=== PATIENT | female | born 1930 | race Hispanic/Latino ===

== ENCOUNTER 2020-07-06 17:11 | Emergency (ER) | payer OTHER, BC ==
[2020-07-06 18:12] LABS: Basophils % 0.6 % (0-1.3); Hematocrit 30.5 % (36.0-45.0); Lymphocytes % 10.4 % (15.3-44.8); MPV 10.5 fL (7.6-11.3); RBC Red Blood Cell Count 3.18 M/uL (3.86-4.86)
[2020-07-06 18:19] LABS: Protime INR 0.97
--- NOTE | 2020-07-06 18:27 | RAD REPORT ---
EXAM DESCRIPTION: RAD - Chest Single View - 07/06/2020 6:21 pm CLINICAL HISTORY: fall Chest pain. COMPARISON: No comparisons FINDINGS: Portable technique limits examination quality. The lungs are grossly clear. The heart is normal in size. No displaced fractures. IMPRESSION: No acute intrathoracic process suspected.
--- NOTE | 2020-07-06 18:28 | RAD REPORT ---
EXAM DESCRIPTION: RAD - Femur Left - 07/06/2020 6:22 pm CLINICAL HISTORY: PAIN Fall, pain COMPARISON: No comparisons FINDINGS: Subcapital fracture is seen of the proximal left femur with varus angulation. No dislocati on evident.
--- NOTE | 2020-07-06 18:28 | RAD REPORT ---
EXAM DESCRIPTION: RAD - Pelvis - 07/06/2020 6:21 pm CLINICAL HISTORY: BLUNT TRAUMA Fall, hip pain COMPARISON: No comparisons FINDINGS: Subcapital fracture of the proximal left femur is seen with varus angulation. No dislocati on evident.
[2020-07-06] MEDS ORDERED: MORPHINE 2 MG/ML SYR ONE (18:36)
[2020-07-06] MEDS ORDERED: ONDANSETRON 4 MG/2 ML VIAL ONE ×2 (18:36→21:38)
--- NOTE | 2020-07-06 18:44 | ER ---
Nurse's Notes [facility] Name: Petty Ferrer Age: 89 yrs Sex: Female : 1930 Arrival Date: 07/06/2020 Time: 17:51 Bed 3 Private MD: Diagnosis: Acute, closed, left subcapital femur fracture Presentation: 07/06 17:51 Chief complaint: EMS states: Left hip pain 10/10 after fall from standing. Left leg hb shortened and externally rotated. Takes ASA. Fentanyl 60 mcg to 20g LAC administered DRAINAGE DESIGN COORDINATOR. BGL 220. Care prior to arrival: IV initiated. 20 GA, in the left antecubital area, Glucose check: 220. Mechanism of Injury: Fall from standing position. Trauma event details: Injury occurred in the [facility], Injury occurred: at home. Injury occurred: July 06, 2020. 17:51 Acuity: ANUP 2 hb 17:51 Method Of Arrival: EMS: [facility] hb 17:53 Coronavirus screen: At this time, the client does not indicate any symptoms associated hb with coronavirus-19. Ebola Screen: No symptoms or risks identified at this time. Initial Sepsis Screen: Does the patient meet any 2 criteria? No. Patient's initial sepsis screen is negative. Does the patient have a suspected source of infection? No. Patient's initial sepsis screen is negative. Risk Assessment: Do you want to hurt yourself or someone else? Patient reports no desire to harm self or others. Onset of symptoms was July 06, 2020. Trauma Activation: Alert Physician: ED Physician; Name: ; Notified At: ; Arrived At: Physician: General Surgeon; Name: ; Notified At: ; Arrived At: Physician: Radiology; Name: ; Notified At: ; Arrived At: Physician: Respiratory; Name: ; Notified At: ; Arrived At: Physician: Lab; Name: ; Notified At: ; Arrived At: Historical: - Allergies: 18:01 No Known Allergies; hb - Home Meds: 18:01 Paxil Oral [Active]; unknown HTN med [Active]; hb 18:30 cetirizine 10 mg oral tab 1 tab once daily [Active]; pioglitazone 15 mg oral tab 1 tab hb once daily [Active]; aspirin 81 mg Oral TbEC 1 tab once daily [Active]; oxybutynin chloride 5 mg Oral tr24 1 tab once daily [Active]; ramipril 5 mg Oral cap 1 cap once daily [Active]; paroxetine HCl 20 mg oral tab 1 tab once daily [Active]; Levemir 100 unit/mL subcutaneous soln [Active]; - PMHx: 18:01 Hypertension; hb - Immunization history: Last tetanus immunization: unknown. - Social history:: Smoking status: Patient denies any tobacco usage or history of. - Family history:: not pertinent. - Hospitalizations: : No recent hospitalization is reported. Screenin:01 Abuse screen: Denies threats or abuse. Denies injuries from another. Nutritional hb screening: No deficits noted. Tuberculosis screening: No symptoms or risk factors identified. Fall Risk Total Ferreira Fall Scale indicates High Risk Score (45 or more points). Fall prevention measures have been instituted. Side Rails Up X 2 Placed Close to Nursing Station Frequent Obs/Assessments Occuring As available patient and family educated on Fall Prevention Program and Strategies. Primary Survey: 17:51 NO uncontrolled hemorrhage observed. A: The patient is alert. Airway: patent, No hb supplemental oxygen in use on arrival. Breathing/Chest: Respiratory pattern: regular, Respiratory effort: spontaneous, unlabored, Chest inspection: symmetrical rise and fall of the chest. Circulation: Pulses: palpable right dorsalis pedis artery and left dorsalis pedis artery. Skin color: pink, Skin temperature: warm, dry. Disability Alert. Exposure/Environment: There is no evidence of uncontrolled external bleeding. Obvious injury(ies) are noted at this time: left hip pain, left leg shortened and externally rotated A warming method has been applied: A warm blanket has been provided to the patient. 18:39 Reassessment Airway Airway Patent Oxygen No O2 Breathing/Chest Respiratory pattern hb Regular Respiratory effort Spontaneous Unlabored Chest inspection Symmetrical Circulation Pulses Palpable Color [place] Temperature Warm Dry Disability Alert. Secondary Survey: 17:55 HEENT: No deficits noted. Gastrointestinal: No deficits noted. : No deficits noted. hb Musculoskeletal: left leg shortened and externally rotated, c/o left hip pain 10/10. Assessment: 18:00 General: Appears in no apparent distress. uncomfortable, Behavior is calm, cooperative. hb Pain: Pain currently is 10 out of 10 on a pain scale. 18:00 Neuro: Level of Consciousness is awake, alert, obeys commands, Oriented to person, hb place, situation. Cardiovascular: Heart tones S1 S2 present Capillary refill < 3 seconds Patient's skin is warm and dry. Respiratory: Airway is patent Respiratory effort is even, unlabored, Respiratory pattern is regular, symmetrical, Breath sounds are clear bilaterally. GI: No deficits noted. No signs and/or symptoms were reported involving the gastrointestinal system. : No deficits noted. No signs and/or symptoms were reported regarding the genitourinary system. EENT: No deficits noted. No signs and/or symptoms were reported regarding the EENT system. Derm: Skin is pink, warm \T\ dry. Musculoskeletal: Reports pain in left hip, left leg shortened and externally rotated. 18:01 Reassessment: Pt transported to radiology via stretcher. hb 19:43 Reassessment: Patient appears in no apparent distress at this time. Patient and/or mg2 family updated on plan of care and expected duration. Pain level reassessed. 20:00 Reassessment: report given to [facility]. mg2 21:29 Reassessment: report given to [facility]. patient in good condition, aox4, iv mg2 intact. Vital Signs: 17:53 BP 182 / 62; Pulse 87; Resp 14; Temp 97.7; Pulse Ox 98% on R/A; Weight 60 kg; Height 5 hb ft. 1 in. (154.94 cm); Pain 10/10; 18:39 BP 144 / 81; Pulse 86; Resp 17; Pulse Ox 99% on R/A; Pain 8/10; hb 19:44 BP 172 / 46; Pulse 74; Resp 18; Pulse Ox 98% ; mg2 21:30 BP 150 / 100; Pulse 80; Resp 18; Temp 98; Pulse Ox 100% on R/A; mg2 17:53 Body Mass Index 24.99 (60.00 kg, 154.94 cm) hb [place] Coma Score: 17:55 Eye Response: spontaneous(4). Verbal Response: confused(4). Motor Response: obeys hb commands(6). Total: 14. Trauma Score (Adult): 17:55 Eye Response: spontaneous(1); Verbal Response: confused(1); Motor Response: obeys hb commands(2); Systolic BP: > 89 mm Hg(4); Respiratory Rate: 10 to 29 per min(4); [place] Score: 14; Trauma Score: 12 18:39 Eye Response: spontaneous(1); Verbal Response: confused(1); Motor Response: obeys hb commands(2); Systolic BP: > 89 mm Hg(4); Respiratory Rate: 10 to 29 per min(4); [place] Score: 14; Trauma Score: 12 ED Course: 17:51 Patient arrived in ED. hb 17:53 Chava Weir MD is Attending Physician. rn 17:53 Triage completed. hb 18:00 Long cath inserted, using sterile technique, 16 Fr., by nv, balloon inflated, to sv gravity drainage, returned clear yellow urine. Patient tolerated poorly. 18:01 Patient moved to radiology via stretcher. sv 18:01 Arm band placed on. hb 18:02 Patient maintains SpO2 saturation greater than 95% on room air. Thermoregulation: warm hb blanket given to patient. 18:02 Patient has correct armband on for positive identification. Call light in reach. Side hb rails up X2. 18:18 Anabel Olson, RN is Primary Nurse. hb 18:21 XRAY Pelvis In Process Unspecified. EDMS 18:21 XRAY Femur LEFT In Process Unspecified. EDMS 18:21 XRAY Chest (1 view) In Process Unspecified. EDMS 18:32 EKG done, by ED staff, reviewed by Chava Weir MD. [facility] 19:17 Jose R Muñoz PA is PHCP. cp 19:41 administrative approval given by Berta Espinosa/ patient has been accepted to [facility] mw2 bed 1547/ Dr. Pinedo has accepted the patient in transfer/ report to be called to [phone]. Administered Medications: 18:26 Drug: morphine 2 mg Route: IVP; Site: left antecubital; hb 19:14 Follow up: Response: No adverse reaction hb 18:26 Drug: Zofran (Ondansetron) 4 mg Route: IVP; Site: left antecubital; hb 19:14 Follow up: Response: No adverse reaction hb 21:25 Drug: morphine 4 mg Route: IVP; Site: left antecubital; mg2 21:29 Follow up: Response: No adverse reaction mg2 21:26 Drug: NS 0.9% 1000 ml Route: IV; Rate: 75 ml/hr; Site: left antecubital; mg2 21:29 Follow up: IV Status: Infusion continued upon transfer mg2 21:26 Drug: Zofran (Ondansetron) 4 mg Route: IVP; Site: left antecubital; mg2 21:29 Follow up: Response: No adverse reaction mg2 Intake: 17:55 PO: 0ml; Total: 0ml. hb Output: 17:55 Urine: 0ml; Total: 0ml. hb Outcome: 18:43 ER care complete, transfer ordered by . rn 21:30 Transferred by ground EMS to [facility], Transfer form completed. mg2 21:30 Condition: stable 21:30 Instructed on the need for transfer, Demonstrated understanding of instructions. 21:30 Patient left the ED. mg2 Signatures: Dispatcher [employer] Kiesha Early, RN Chava Perez MD MD rn Page, Corey, PA PA cp Baxter, Heather, RN RN Lizy Clinton 3 Kita Montes [facility] Ismael Dorsey RN RN mg2 Corrections: (The following items were deleted from the chart) 18:27 17:51 Chief complaint: EMS states: Left hip pain 10/10 after fall from standing. Left hb leg shortened and externally rotated. Fentanyl 60 mcg to 20g LAC administered DRAINAGE DESIGN COORDINATOR. BGL 220. hb
--- NOTE | 2020-07-06 18:44 | EDPHYS ---
Physician Documentation [facility] Name: Petty Ferrer Age: 89 yrs Sex: Female : 1930 Arrival Date: 07/06/2020 Time: 17:51 Bed 3 Private MD: ED Physician Chava Weir HPI: 07/06 18:02 This 89 yrs old Female presents to ER via EMS with complaints of Fall Injury. rn 18:02 Details of fall: The patient fell from an upright position, while walking. Onset: The rn symptoms/episode began/occurred just prior to arrival. Associated injuries: The patient sustained left hip. Severity of symptoms: At their worst the symptoms were moderate, in the emergency department the symptoms are unchanged. The patient has not experienced similar symptoms in the past. The patient has not recently seen a physician. Reports fall while walking, landed on left hip, no head injury, remembers all events, no upper extremity or chest injury. Reports pain isolated to left hip. Denies blood thinners. . Historical: - Allergies: 18:01 No Known Allergies; hb - Home Meds: 18:01 Paxil Oral [Active]; unknown HTN med [Active]; hb 18:30 cetirizine 10 mg oral tab 1 tab once daily [Active]; pioglitazone 15 mg oral tab 1 tab hb once daily [Active]; aspirin 81 mg Oral TbEC 1 tab once daily [Active]; oxybutynin chloride 5 mg Oral tr24 1 tab once daily [Active]; ramipril 5 mg Oral cap 1 cap once daily [Active]; paroxetine HCl 20 mg oral tab 1 tab once daily [Active]; Levemir 100 unit/mL subcutaneous soln [Active]; - PMHx: 18:01 Hypertension; hb - Immunization history: Last tetanus immunization: unknown. - Social history:: Smoking status: Patient denies any tobacco usage or history of. - Family history:: not pertinent. - Hospitalizations: : No recent hospitalization is reported. ROS: 18:02 Constitutional: Negative for fever, chills, and weight loss, Eyes: Negative for injury, rn pain, redness, and discharge, ENT: Negative for injury, pain, and discharge, Neck: Negative for injury, pain, and swelling, Cardiovascular: Negative for chest pain, palpitations, and edema, Respiratory: Negative for shortness of breath, cough, wheezing, and pleuritic chest pain, Abdomen/GI: Negative for abdominal pain, nausea, vomiting, diarrhea, and constipation, Back: Negative for injury and pain, MS/Extremity: + left hip injury and pain Skin: Negative for injury, rash, and discoloration, Neuro: Negative for headache, weakness, numbness, tingling, and seizure. Exam: 18:02 Constitutional: This is a well developed, well nourished patient who is awake, alert, rn and in no acute distress. Head/Face: Normocephalic, atraumatic. Neck: No midline tenderness or swelling Chest/axilla: Normal chest wall appearance and motion. Nontender with no deformity. No lesions are appreciated. No crepitus. Cardiovascular: Regular rate and rhythm. No pulse deficits. Respiratory: No increased work of breathing, no retractions or nasal flaring. Abdomen/GI: soft, non-tender Back: No spinal tenderness. MS/ Extremity: Pulses equal, no cyanosis. Neurovascular intact. Full, normal range of motion. Equal circumference. Neuro: Awake and alert, GCS 15, oriented to person, place, time, and situation. Cranial nerves II-XII grossly intact. Motor strength 5/5 in all extremities. Sensory grossly intact. Vital Signs: 17:53 BP 182 / 62; Pulse 87; Resp 14; Temp 97.7; Pulse Ox 98% on R/A; Weight 60 kg; Height 5 hb ft. 1 in. (154.94 cm); Pain 10/10; 18:39 BP 144 / 81; Pulse 86; Resp 17; Pulse Ox 99% on R/A; Pain 8/10; hb 19:44 BP 172 / 46; Pulse 74; Resp 18; Pulse Ox 98% ; mg2 21:30 BP 150 / 100; Pulse 80; Resp 18; Temp 98; Pulse Ox 100% on R/A; mg2 17:53 Body Mass Index 24.99 (60.00 kg, 154.94 cm) hb Boyle Coma Score: 17:55 Eye Response: spontaneous(4). Verbal Response: confused(4). Motor Response: obeys hb commands(6). Total: 14. Trauma Score (Adult): 17:55 Eye Response: spontaneous(1); Verbal Response: confused(1); Motor Response: obeys hb commands(2); Systolic BP: > 89 mm Hg(4); Respiratory Rate: 10 to 29 per min(4); Boyle Score: 14; Trauma Score: 12 18:39 Eye Response: spontaneous(1); Verbal Response: confused(1); Motor Response: obeys hb commands(2); Systolic BP: > 89 mm Hg(4); Respiratory Rate: 10 to 29 per min(4); Boyle Score: 14; Trauma Score: 12 MDM: 17:53 Patient medically screened. rn 18:41 Differential diagnosis: contusion, fracture. Data reviewed: vital signs, nurses notes, rn radiologic studies, plain films, and as a result, I will admit patient. Counseling: I had a detailed discussion with the patient and/or guardian regarding: the historical points, exam findings, and any diagnostic results supporting the discharge/admit diagnosis, radiology results, the need for outpatient follow up, to return to the emergency department if symptoms worsen or persist or if there are any questions or concerns that arise at home. ED course: Pt with left subcapital femur fracture, will have to transfer given no ortho here. Pain meds given. NPO. NO other injuries noted. Stable vitals. [facility] contacted around 1830, waiting on callback. . 19:15 ED course: Accepted for transfer at [facility] by orthopedics, waiting on rn hospitalist consultation. . 07/06 17:59 Order name: CBC with Diff; Complete Time: 18:32 rn 07/06 17:59 Order name: Basic Metabolic Panel; Complete Time: 18:32 rn 07/06 17:59 Order name: XRAY Pelvis; Complete Time: 18:32 rn 07/06 17:59 Order name: Protime (+inr); Complete Time: 18:32 rn 07/06 17:59 Order name: Ptt, Activated; Complete Time: 18:32 rn 07/06 20:36 Order name: Urine Dipstick--Ancillary (enter results) 07/06 17:59 Order name: XRAY Femur LEFT; Complete Time: 18:32 rn 07/06 17:59 Order name: XRAY Chest (1 view); Complete Time: 18:32 rn 07/06 17:59 Order name: EKG; Complete Time: 18: rn 07/06 17:59 Order name: IV Start; Complete Time: 18:01 rn 07/06 17:59 Order name: EKG - Nurse/Tech; Complete Time: 18:36 rn 07/06 18:00 Order name: NPO; Complete Time: 18:19 rn 07/06 19:57 Order name: Urine Dipstick-Ancillary (obtain specimen); Complete Time: 20:36 cp Administered Medications: 18:26 Drug: morphine 2 mg Route: IVP; Site: left antecubital; hb 19:14 Follow up: Response: No adverse reaction hb 18:26 Drug: Zofran (Ondansetron) 4 mg Route: IVP; Site: left antecubital; hb 19:14 Follow up: Response: No adverse reaction hb 21:25 Drug: morphine 4 mg Route: IVP; Site: left antecubital; mg2 21:29 Follow up: Response: No adverse reaction mg2 21:26 Drug: NS 0.9% 1000 ml Route: IV; Rate: 75 ml/hr; Site: left antecubital; mg2 21:29 Follow up: IV Status: Infusion continued upon transfer mg2 21:26 Drug: Zofran (Ondansetron) 4 mg Route: IVP; Site: left antecubital; mg2 21:29 Follow up: Response: No adverse reaction mg2 Disposition: 07/06/20 18:43 Transfer ordered to [facility]. Diagnosis is Acute, closed, left subcapital femur fracture. - Reason for transfer: Higher level of care. - Accepting physician is Dr. Varela. - Condition is Stable. - Problem is new. - Symptoms have improved. Signatures: Dispatcher [employer] EDMS Chava Weir MD MD rn Page, Corey, PA PA cp Anabel Olson RN RN Ismael Parra RN RN mg2 Corrections: (The following items were deleted from the chart) : 18:43 07/06/2020 18:43 Transfer ordered to [facility]. cp Diagnosis is Acute, closed, left subcapital femur fracture. Reason for transfer: Higher level of care. Accepting physician is . Condition is Stable. Problem is new. Symptoms have improved. rn 21:30 19:26 07/06/2020 18:43 Transfer ordered [address] [facility]. mg2 Diagnosis is Acute, closed, left subcapital femur fracture. Reason for transfer: Higher level of care. Accepting physician is Dr. Varela. Condition is Stable. Problem is new. Symptoms have improved. cp
[2020-07-06] MEDS ORDERED: MORPHINE 4 MG/ML SYR ONE (21:38)
[2020-07-06] MEDS ORDERED: NA CHLORIDE 0.9% 500 ML ONE (21:43)
[2020-07-06 22:21] LABS: Urine Blood 1+ (NEG); Urine Glucose TRACE (NEG); Urine Protein 3+ (NEG); Urine Specific Gravity 1.025 (1.005-1.030)
== END 2020-07-06 21:30 | disposition short-term general hospital (02) ==
LOC: ER 17:11
DX: S72.012A Unspecified intracapsular fracture of left femur, initial encounter for closed fracture (principal); W18.30XA Fall on same level, unspecified, initial encounter; Y93.01 Activity, walking, marching and hiking; Y92.9 Unspecified place or not applicable; I10 Essential (primary) hypertension
CPT/HCPCS: 85025; 80048; 36415; 85610; 85730; 81003; 71045; 72170; 73552; J2270; J7040; J2405 ×2; 51702; 96374; 96375; 99285; G0390

== ENCOUNTER 2020-07-11 10:37 | Inpatient (IN) | payer BC, OTHER ==
--- NOTE | 2020-07-11 17:04 | R.PREADM ---
PRE-ADMISSION SCREENING FORM SCREENING DATE AND TIME 07/11/2020 09:19 (PUBLIC MESSAGE SERVICE SUPERVISOR) ANTICIPATED REHAB ADMISSION DATE 07/13/2020 REFERRING FACILITY [facility] REFERRAL DATE AND TIME 07/11/2020 09:19 (PUBLIC MESSAGE SERVICE SUPERVISOR) REFERRAL ROOM# [id number] ACUTE ADMIT DATE 07/13/2020 Previous Rehabilitation(s): No. ACUTE NURSING TECHN/DC BANK REPRESENTATIVE ADAMA PETER ATTENDING PHYSICIAN JIMENA VIGIL MD REFERRING PHYSICIAN JIMENA VIGIL MD REHAB FACILITY [facility] CLINICAL LIAISON [place] PHYSICIAN REVIEWER Dr. Shaun Johnson M.D. MR# [id number] NAME SALLIE CHEUNG ADDRESS [address] [facility] PHONE [facility] [id number] DATE OF 1930 AGE 89 SSN# [id number] GENDER female MARITAL STATUS Single (Never ) RACE unknown race ADMIT FROM 02 - [facility] PRE-HOSPITAL LIVING SETTING 01 - Home (private home/apt. board/care, assisted living, fci, transitional living) HOME TYPE AND DETAILS Type of home: single family house # of levels in the residence: 1 # of steps within the residence: 0 # of steps to enter the residence: 0 PRE-HOSPITAL LIVING WITH Family/Relatives FAMILY SUPPORT Yes PRIMARY FAMILY CONTACT NAME KELIN CHEUNG PRIMARY FAMILY CONTACT PHONE [phone] PRIMARY FAMILY CONTACT RELATIONSHIP DAUGHTER PHONE PRIMARY FAMILY CONTACT ON ADM.? no IS PRIMARY FAMILY CONTACT AUTH. REP.? no 1ST EMERGENCY CONTACT KELIN CHEUNG 1ST CONTACT PHONE [phone] 1ST CONTACT RELATIONSHIP DAUGHTER PHONE 1ST CONTACT ON ADM. no IS 1ST CONTACT AUTH. REP.? no PHONE 2ND CONTACT ON ADM.? no PATIENT EMPLOYMENT STATUS Retired (for age) PATIENT EMPLOYER No Employer PAYOR INFORMATION: 1ST PAYOR NAME MEDICARE 1ST PAYOR PHONE 1ST PAYOR INJURY/ILLNESS DUE TO ACCIDENT? No ANOTHER REPUBLICAN RESPONSIBLE? No PRIMARY REHAB/ACUTE DIAGNOSIS: LEFT FEMORAL FRACTURE ONSET DATE 07/06/2020 REHAB IMPAIRMENT CATEGORY (DIETER): 07 Fracture of LE (FracLE) MEETS 60% rule AFFECTED EXTREMITIES: LLE PRIMARY DIAGNOSIS-RELATED SURGERIES: ARTHROPLASTY, LEFT HIP SUMMARY OF ACUTE HOSPITALIZATION: Pt. is a 89 yo Right-handed female of unknown race. On 07/06/2020 she was admitted to [facility] with diagnosis LEFT FEMORAL FRACTURE. Her impairment category is Orthopaedic Disorders 08 - Unilateral Hip Fracture (08.11). Pre-morbidly, Pt. was independent/mod-I in Self-Care, Endurance, Communication, Locomotion, and Safet y Awareness; and she had good Sphincter Control, Transfers Control, and Social Cognition. Currently, she has deficits of Balance, Transfers Control, Sphincter Control, Self-Care, and Locomoti on. Pt. is now referred to [facility] for acute in-patient rehabilitation in order to maximize patient's functional independence in activities of daily living, strength, ROM, and mobi lity. Patient has realistic goal of being discharged at assistance level 7-Ind to reside at Home with Fami ly/Relatives. Sallie Cheung is a 89 -year- old female that lives independently at home. She lives in a single story home with family help when needed. She has a history of active smoking with medical h/o dementia, DM2, CAD s/p PCI x2 ( 10 yers ago). She admitted with a left femur fracture. She had arthroplasty 07/07/20, hospital course c/b ANKITA and delirium likely 2/2 UTI. Shes working well with PT and has made a great impovedment. The patient would most definitely benefit from acute inpatient rehab and has become severely debilitated and unable to live at her prior level of activity at home getting her stronger to be back living at home independently is our goal. It is reasonable and necessary for the patient to come to acute inpatient rehab for approximately 7-10 days in order to return to her prior level of care. She is now being transferred to [facility] Inpatient rehabilitation and is medically stable with relatively stable labs. She is now medically stable but in need of 24 hour nursing, doctor supervision and oversight while receiving active and ongoing intensive (PT, OT therapy a day/15 hours per week and receive care with intensive interdisciplinary approach. COVID-19 screening performed; spoke with patient via phone. Patient denies new onset of fever, cough, difficulty breathing, sore throat, body aches and non-allergy nasal congestion in the past 24 hours. Patient denies travel outside of [place] in the past 14 days. Patient denies any contact with someone who has a confirmed diagnosis of or is under investigation for COVID-19 in the past 14 days. Patient has been tested negative for COVID- 19. PAST MEDICAL HISTORY ACTIVE SMOKER W MEDICAL H/O DEMENTIA DM2 CAD S/P PCI X2 (10 YEARS AGO) UTI HTN PAST SURGICAL HISTORY: ARTHROPLASTY OF LEFT FEMUR MEDICATION ALLERGIES: No Known Drug Allergies (NKDA) ENVIRONMENTAL ALLERGIES: - Substance Allergies None Known - Other Allergies None Known CODE STATUS: Full code WEIGHT/HEIGHT/BMI: WEIGHT 136 lbs BMI N/A DIET: - Diet Type Regular - Diet - Solid Texture Regular - Diet - Liquid Texture Regular - Tube Feed N/A REVIEW OF SYSTEMS: - Gen Alert and awake Lying in bed No apparent distress Oriented to: person, time, and place - Vital Signs Temperature: 97.9 F SBP/DBP: 121/88 Pulse: 80 Resp: 19 Vital signs stable, afebrile - CVS RRR VITAL SIGNS Temperature: 97.9 F BP 121/88 Pulse: 80 Resp: 19 Vital signs stable, afebrile MEDICATIONS/TREATMENT: Other- See attached MAR (Medication Administration Record). CURRENT SPHINCTER CONTROL: Pre-hospital bladder status: unspecified # of bladder accidents in the last 7 days prior to screenin Pre-hospital bowel status: unspecified # of bowel accidents in the last 7 days prior to screenin Last Bowel Movement Date: 07/11/2020 CURRENT LOCOMOTION STATUS: distance walked 15 feet USING ROLLING WALKER DETAILED CURRENT FUNCTIONAL STATUS: - Bladder accident frequency: Ind - No accidents in the past 7 days - Bowel accident frequency: Ind - No accidents in the past 7 days - Walking score based on distance walked: 0(N/A) score based on distance walked: 1(<=50ft) - Wheelchair score based on distance traveled: 0(N/A) QI SCORES: - Self-Care A. Eating 03-Partial/moderate assistance B. Oral hygiene 03-Partial/moderate assistance C. Toileting hygiene E. Shower/bathe self 02-Substantial/maximal assistance F. Upper body dressing 03-Partial/moderate assistance G. Lower body dressing 02-Substantial/maximal assistance H. Putting on/taking off footwear 88-Not attempted due to medical condition or safety concerns - Mobility A. Roll left and right 03-Partial/moderate assistance B. Sit to lying 03-Partial/moderate assistance C. Lying to sitting on side of bed 03-Partial/moderate assistance D. Sit to stand 03-Partial/moderate assistance E. Chair/zxu-hw-ahqiz transfer 02-Substantial/maximal assistance F. Toilet transfer G. Car transfer 88-Not attempted due to medical condition or safety concerns I. Walk 10 feet 03-Partial/moderate assistance J. Walk 50 feet with two turns 88-Not attempted due to medical condition or safety concerns K. Walk 150 feet 88-Not attempted due to medical condition or safety concerns L. Walking 10 feet on uneven surfaces 88-Not attempted due to medical condition or safety concerns M. 1 step (curb) 88-Not attempted due to medical condition or safety concerns N. 4 steps 88-Not attempted due to medical condition or safety concerns O. 12 steps 88-Not attempted due to medical condition or safety concerns P. Picking up object 88-Not attempted due to medical condition or safety concerns R. Wheel 50 feet with two turns 88-Not attempted due to medical condition or safety concerns S. Wheel 150 feet 88-Not attempted due to medical condition or safety concerns - Bladder and Bowel Bladder continence Bowel continence - Endurance Fair - Balance Fair - Safety Awareness Fair CURRENT FUNC. DEFICITS: Self-Care, Mobility, Endurance, Balance, and Safety Awareness CURRENT / PREVIOUS ASSISTIVE DEVICES: Rolling Walker Tub Bench HISTORY OF FALLS. HAS THE PATIENT HAD TWO OR MORE FALLS IN THE PAST YEAR OR ANY FALL WITH INJURY IN T HE PAST YEAR?: No PRIOR SURGERY. DID THE PATIENT HAVE MAJOR SURGERY DURING THE 100 DAYS PRIOR TO ADMISSION?: No THERAPY NOTES FROM ACUTE CARE: Attached. SPECIAL NEEDS: - Safety Concerns Skin breakdown precautions needed due to skin breakdown risk PRECAUTIONS: - Posterior Hip Precaution No adduction across midline No external rotation No hip flexion >90 degrees No internal rotation No wheel chair propulsion PATIENT NEEDS ACTIVE AND ONGOING THERAPEUTIC INTERVENTION OF MULTIPLE THERAPY DISCIPLINES, INCLUDING: - Dietary and Nutrition Adequate Nutrition. Nutritional Education. Nutritional Supplements. PATIENT NEEDS CLOSE MEDICAL SUPERVISION BY A REHABILITATION PHYSICIAN FOR: Coordination of Treatment Team PATIENT REQUIRES 24X7 REHAB NURSING FOR MEDICAL AND FUNCTIONAL MGT. OF THE FOLLOWING DEFICITS: Disease Management Medication Management Patient/Family Education Providing Safe Environment PATIENT REQUIRES INTENSIVE, COORDINATED INTERDISCIPLINARY APPROACH TO REHAB: Arranging Home Equipment/Services Discharge Planning Family Intervention/Training Telephonic Case Manager/Case Management PATIENT REHAB POTENTIAL: Luisa CHEUNG is able and expected to receive 3 hours of individualized therapy daily on at least 5 of every 7 days Luisa CHEUNG's prognosis for significant practical improvement within a reasonable period of time deborah ears Good Expected level of measurable improvement will be of a practical value to Luisa CHEUNG's functional ca pacity or adaptations to impairments Has a viable Discharge Plan Medically appropriate; condition is sufficiently stable to participate in intensive rehab program DISCHARGE PLAN: - Estimated Length of Stay (days) 14. - Consensus on plan Discharge plan has been discussed with primary caregiver. Patient/Family is in agreement with the gavino n. Primary caregiver is in agreement with the plan. - Patient/Family Goals Return home independently. - Planned Living Setting Upon Discharge Home, to live with Family/Relatives. Transitional Living. RECOMMENDED CARE LEVEL: IRF RECOMMENDATION DETAILS: Recommended Admission to Comprehensive Rehabilitation Program to Increase Functional [place] SCREENER'S COMPLETENESS CONFIRMATION: - Screening Confirmation The patient data collection on this preadmission screening form is finished PHYSICIANS REVIEW AND ADMISSION DETERMINATION Admit - Based on my review of the Pre-Admission Screening results, in my medical judgment and experie nce, I concur with the findings and recommend admission to [facility], as this patient requires an IRF level of care. SIGNATURE PANEL: Plastic Machine Operator - [electronically] signed by [place]jas Ríos on 07/11/2020 at 14:00 (PUBLIC MESSAGE SERVICE SUPERVISOR) Plastic Machine Operator - [electronically] signed by Tawanda Archer PT on 07/11/2020 at 15:05 (PUBLIC MESSAGE SERVICE SUPERVISOR) Physician Reviewer - [electronically] signed by Dr. Shaun Johnson M.D. on 07/11/2020 at 17:03 (PUBLIC MESSAGE SERVICE SUPERVISOR )
--- OUTSIDE RECORDS SUMMARY | 2020-07-12 20:10 | XMS REPORT | Summary of Care ---
:1930 Author Organization [facility] Address [address] [place] [id number] Care Team Providers Name Role Phone Urbano Lugo MD Primary Care Provider Reason for Visit Reason Comments New Patient Establish Care Ekg Done today in Office Encounter Details Date Type Department Care Team Description 06/24/2020 Office Visit [facility] Urbano Lugo Coronary aundrea ry disease involving sa[place] coronary artery of [place] heart without angina pectoris (Primary Dx); Cardiology- Ming Santacruz MD Essential hypertension; [facility] [address] Dyslipidemia; Drive, [address] WILHELM (dyspnea on exertion); [place], [place] 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, with long-term current use of insulin [id number] Allergies No Known Allergiesdocumented as of this encounter (statuses as of 06/24/2020) Medications Medication Sig Dispensed Refills Start Date End Date Status phenazopyridine HCl (AZO Take by mouth 0 Active ORAL) daily. 2 tabs ramipriL 5 mg capsule Take 5 mg by 0 Active mouth daily. PARoxetine 20 mg tablet Take 20 mg by 0 Active mouth daily. pioglitazone 15 mg tablet Take 15 mg by 0 Active mouth daily. oxybutynin chloride 5 mg Take 5 mg by 0 Active tablet mouth daily. simvastatin 40 mg tablet Take 40 mg by 0 Active mouth at bedtime. insulin detemir U-100 inject under 0 Active (LEVEMIR U-100 INSULIN) the skin. 100 unit/mL injection aspirin 81 mg chewable Take 81 mg by 0 Active tablet mouth daily. documented as of this encounter (statuses as of 06/24/2020) Active Problems No known active problemsdocumented as of this encounter (statuses as of 06/24/2020) Immunizations Name Administration Dates Next Due Influenza High Dose 03/17/2020 documented as of this encounter Social History Tobacco Use Types Packs/Day Years Used Date Current Every Day Smoker Smokeless Tobacco: Current User Sex Assigned at Date Recorded Not on file documented as of this encounter Last Filed Vital Signs Vital Sign Reading Time Taken Comments Blood Pressure 143/59 06/24/2020 10:44 AM BUSINESS ACCOUNT SPECIALIST Pulse 72 06/24/2020 10:40 AM BUSINESS ACCOUNT SPECIALIST Temperature - - Respiratory Rate 19 06/24/2020 10:40 AM BUSINESS ACCOUNT SPECIALIST Oxygen Saturation 96% 06/24/2020 10:40 AM BUSINESS ACCOUNT SPECIALIST Inhaled Oxygen Concentration - - Weight 55.7 kg (122 lb 14.4 oz) 06/24/2020 10:40 AM BUSINESS ACCOUNT SPECIALIST Height 154.9 cm (5' 1") 06/24/2020 10:40 AM BUSINESS ACCOUNT SPECIALIST Body Mass Index 23.22 06/24/2020 10:40 AM BUSINESS ACCOUNT SPECIALIST documented in this encounter Progress Notes Urbano Lugo MD - 06/24/2020 10:00 AM CST [facility] Cardiology Consult Note Patient: Petty Ferrer Date of : 1930 Date of service: 06/24/2020 Primary Care Physician: None CHIEF COMPLAINT: Chief Complaint Patient presents with New Patient Establish Care Ekg Done today in Office HISTORY OF PRESENT ILLNESS: Petty Ferrer is a 89 year old female presented to the clinic for establish care for CAD History from patient/qxfjogxt-bh-mup Patient seen and examined in the room. Pertinent cardiac related history reviewed from chart Risk factors include age, CAD, ongoing tobacco abuse, hypertension, dyslipidemia History of shortness of breath gradually worsening many years ago subsequent to which and saw Dr. Obrien in [place], stress test was done which was reported to be abnormal hence underwent coronary artery intervention at that time. 3 years later she had a repeat stress test which was still noted to beabnormal underwent a coronary artery intervention. Since then she has been feeling well on the whole. WILHELM NYHA class II noted. Last seen head miller in [facility]. She is able to do ADLs by herself without any difficulty without any cardiac symptoms. No chest pain at rest. No PND or orthopnea. No pedal edema. No exertional palpitations or palpitations at rest. No syncopal attacks. PAST MEDICAL HISTORY No past medical history on file. No past surgical history on file. No family history on file. SOCIAL HISTORY Social History Socioeconomic History Marital status: Spouse name: Not on file Number of children: Not on file Years of education: Not on file Highest education level: Not on file Occupational History Not on file Social Needs Financial resource strain: Not on file Food insecurity Worry: Not on file Inability: Not on file Transportation needs Medical: Not on file Non-medical: Not on file Tobacco Use Smoking status: Current Every Day Smoker Smokeless tobacco: Current User Substance and Sexual Activity Alcohol use: Not on file Drug use: Not on file Sexual activity: Not on file Lifestyle Physical activity Days per week: Not on file Minutes per session: Not on file Stress: Not on file Relationships Social connections Talks on phone: Not on file Gets together: Not on file Attends restoration service: Not on file Active member of club or organization: Not on file Attends meetings of clubs or organizations: Not on file Relationship status: Not on file Intimate partner violence Fear of current or ex partner: Not on file Emotionally abused: Not on file Physically abused: Not on file Forced sexual activity: Not on file Other Topics Concern Not on file Social History Narrative Not on file ALLERGIES No Known Allergies MEDICATIONS Patient's Medications START taking these medications No medications on file CONTINUE taking these medications which have NOT CHANGED ASPIRIN 81 MG CHEWABLE TABLET Take 81 mg by mouth daily. INSULIN DETEMIR U-100 (LEVEMIR U-100 INSULIN) 100 UNIT/ML INJECTION inject under the skin. OXYBUTYNIN CHLORIDE 5 MG TABLET Take 5 mg by mouth daily. PAROXETINE 20 MG TABLET Take 20 mg by mouth daily. PHENAZOPYRIDINE HCL (AZO ORAL) Take by mouth daily. 2 tabs PIOGLITAZONE 15 MG TABLET Take 15 mg by mouth daily. RAMIPRIL 5 MG CAPSULE Take 5 mg by mouth daily. SIMVASTATIN 40 MG TABLET Take 40 mg by mouth at bedtime. START taking Modified Medications as Prescribed No medications on file STOP taking these medications No medications on file Current Outpatient Medications: aspirin 81 mg chewable tablet, Take 81 mg by mouth daily., Disp: , Rfl: insulin detemir U-100 (LEVEMIR U-100 INSULIN) 100 unit/mL injection, inject under the skin., Disp: , Rfl: oxybutynin chloride 5 mg tablet, Take 5 mg by mouth daily., Disp: , Rfl: PARoxetine 20 mg tablet, Take 20 mg by mouth daily., Disp: , Rfl: phenazopyridine HCl (AZO ORAL), Take by mouth daily. 2 tabs, Disp: , Rfl: pioglitazone 15 mg tablet, Take 15 mg by mouth daily., Disp: , Rfl: ramipriL 5 mg capsule, Take 5 mg by mouth daily., Disp: , Rfl: simvastatin 40 mg tablet, Take 40 mg by mouth at bedtime., Disp: , Rfl: REVIEW OF SYSTEMS: Comprehensive 10-system review was conducted and were negative except for what's noted in the HPI. The following systems were reviewed: Constitutional, cardiovascular, respiratory, gastrointestinal, genitourinary, musculoskeletal, neurologic, psychiatric, endocrinological, and hematological. PHYSICAL EXAMINATION: Vitals: 06/24/20 1040 06/24/20 1044 BP: (!) 156/65 (!) 143/59 BP Location: Left arm Patient Position: Sitting BP CUFF SIZE: Adult Small Pulse: 72 Resp: 19 SpO2: 96% Weight: 122 lb 14.4 oz (55.7 kg) Height: 5' 1" (1.549 m) General: no apparent distress HEENT: normocephalic atraumatic Neck: supple, no lymphadenopathy, no bruits, no JVD Lungs: clear to auscultation bilaterally. No wheezes or rhonchi. No increased work of breathing. Cardio: Regular rate and rhythm, S1&S2 normal, no murmurs, rubs or gallops Abdomen: soft; non-tender; non-distended; normoactive bowel sounds. : not examined Rectal: not examined Extremities: no clubbing, cyanosis, or edema. Skin: no rashes, no visible lesions. Neuro: no gross focal deficits LABS - Reviewed pertinent labs as below: CBC BMP PT/INR No results found for: WBC No results found for: NA No results found for: PT No results found for: PLT No results found for: K No results found for: PTINR No results found for: HGB No results found for: BUN No results found for: HCT No results found for: CREAT LIPID PROFILE No results found for: GLU No results found for: CHOL TSH No results found for: LDL No results found for: TSH CARDIAC ENZYMES No results found for: HDL No results found for: CK No results found for: TRIG LFTs No results found for: CKMB No results found for: AST No results found for: TROPNI No results found for: ALT No results found for: BNP No results found for: LDL There are no current results on file for these tests and/or test for 1 year. There are no current results on file for these tests and/or test for 1 year. No results found for: LDL No results found for: NTBNP ASSESSMENT/PLAN 1. Coronary artery disease involving sa[place] coronary artery of [place] heart without angina pectoris 2. Essential hypertension 3. Dyslipidemia 4. WILHELM (dyspnea on exertion) 5. 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, with long-term current use of insulin WILHELM NYHA class II: Likely multifactorial. We will get recent echocardiogram/carotid ultrasound reports. We also get try to get the last cardiac intervention done 15 years ago. Echocardiogram to assess for underlying diastolic function/systolic function. They report the echocardiogram was done within last 1 to 2 years. CAD 15 yrs S/p PCI X 2: Able to do her active daily living without any significant cardiac symptoms. EKG done today in the office was reviewed which shows sinus rhythm with left anterior fascicular block. No prior EKG for review. Currently on aspirin 81 daily. DC Plavix by her head miller in [facility] HTN: Stable/controlled. Currently on ramipril 5 mg daily. We will get recent labs from her primarycare physician done recently. Home BP log recommended. Cross check his BP machine. Appropriate ways to check home BP discussed. Goals BP <150/90 stressed. Explained if BP > 150/90, adviced to send us the log. Lifestyle modifications stressed. Dyslipidemia: On simvastatin 40 mg daily. Awaiting recent lipid panels. T2DM: Following up with PCP. Recommend to work on quitting smoking. Follow-up with us in 2 months. No orders of the defined types were placed in this encounter. Requested Prescriptions No prescriptions requested or ordered in this encounter Patient's diease process and its evaluation and treatment were discussed. We discussed each of for cardio vascular-related problems and discussed long-term goals and expectations for the each problem.I reviewed each of the cardiac medications in detail. Reviewed the medication with patient in detail recommended to continue taking the current medications without further changes. Recommended goal BP < 150/90 consistently, LDL << 70, HbA1c < 6.5. Recommended, explained and stressed the importance of healthy eating habits and exercises and lifestyle modifications Follow up as planned is predicated on symptoms stability and/or acceptable test results. Patient is urged to call in sooner should problems arise or if there is no improvement in cardiac symptoms. ER warning signs and symptoms explained and patient verbalized understanding. My diagnostic impression and treatment plans were discussed at length with the patient and family member present. All side effects as well as drug-drug interactions and risks discussed at length. Ample opportunity was offered and encouraged to ask questions during this visit and patient appreciated the answers given by me and verbzalised statisfcation in the answers given. Thank you for allowing us to participate in the care of Petty Ferrer. If you have any questions or concerns please feel free to call our office at [phone]. I would be happy to be of further assistance for Petty Ferrer wellbeing. Lee Lugo MD Independent Driver, Division of Cardiology [facility] documented in this encounter Miscellaneous Notes Addendum Note - Rona Frederick MA - 06/24/2020 10:00 AM BUSINESS ACCOUNT SPECIALIST Addended by: RONA FREDERICK on: 06/24/2020 04:20 PM Modules accepted: Orders NESS ACCOUNT SPECIALIST documented in this encounter Plan of Treatment Date Type Specialty Care Team Description 06/30/2020 Imm/Inj Visit [facility] Idris Rasheed MD [address] [place] [address] Preventive Medicine Nurse, Adc Pob Immunization 08/30/2020 Office Visit Cardiology Urbano Lugo MD [address] [place] [address] [place] [phone] Name Type Priority Associated Diagnoses Order S chedule EKG-12 LEAD ROUTINE HEART STATION Routine Coronary artery Orde red: 06/24/2020 disease involving sa[place] coronary artery of [place] heart without angina pectoris Health Maintenance Due Date Last Done Comments HgA1C 1933 CREATININE (SERUM) 1942 EYE EXAM 1942 LDL-C 1942 URINE MICROALBUMIN 1942 FOOT EXAM 1950 DTaP,Tdap,and Td Vaccines (1 - Tdap) 09/15/1951 Zoster Recombinant Vaccine (SHINGRIX) (1 of 2) 1982 Medicare Wellness Visit 1997 Osteoporosis Screening 1997 PNEUMOCOCCAL VACCINES 65+ (1 of 1 - PPSV23) 1997 Depression Screening 06/24/2021 06/24/2020 INFLUENZA VACCINE Completed 03/17/2020 documented as of this encounter Results Not on filedocumented in this encounter Visit Diagnoses Diagnosis Coronary artery disease involving [place] coronary artery of [place] heart without angina pectoris - Primary Essential hypertension Unspecified essential hypertension Dyslipidemia Other and unspecified hyperlipidemia WILHELM (dyspnea on exertion) Other dyspnea and respiratory abnormalit y Type 2 diabetes mellitus with other spec ified complication, with long-term current use of insulin documented in this encounter Insurance Payer Benefit Plan Subscriber ID Effective Dates Phone Address Type / Group BCBS OF [employer] [id number] 1998[address] [phone] [place] [employer] [id number] [place] [address] documented as of this encounter
--- OUTSIDE RECORDS SUMMARY | 2020-07-12 20:10 | XMS REPORT | Clinical Summary ---
:1930 Author Organization [facility] Address [address] [place] [address] Care Team Providers Name Role Phone Pcp, Primary Care Provider Unavailable Allergies No Known Allergies Medications Medication Sig Dispensed Refills Start Date End Date Status pioglitazone Take 15 mg by mouth 0 Active (ACTOS) 15 MG daily. tablet aspirin 81 MG EC Take 81 mg by mouth 0 Active tablet daily. oxybutynin Take 5 mg by mouth 0 Active (DITROPAN-XL) 5 MG daily. 24 hr tablet PARoxetine (PAXIL) Take 20 mg by mouth 0 Active 20 MG tablet every morning. cetirizine Take 10 mg by mouth 0 Active (ZyrTEC) 10 MG daily. tablet ramipriL (ALTACE) Take 5 mg by mouth 0 Active 5 MG capsule daily. acetaminophen Take 2 tablets (650 30 tablet 0 07/11/202007/06 Active (TYLENOL) 325 MG mg total) by mouth 22 tablet every 4 (four) hours as needed for up to [address] 1 suppository 12 suppository 0 07/11/202010/04 Active (DULCOLAX) 10 mg (10 mg total) 21 suppository rectally daily as needed for up to 10 days. ferrous sulfate Take 1 tablet (325 0 07/12/202006/18 Active 325 (65 FE) MG mg total) by mouth 22 tablet daily. HYDROcodone-acetam Take 1 tablet by 30 tablet 0 07/11/202010/04 Active inophen (NORCO mouth 3 (three) 21 5-325) 5-325 mg times daily as per tablet needed for up to 10 days. Max Daily Amount: 3 tablets polyethylene Take 17 g by mouth 14 each 0 07/11/2020 0 Active glycol (GLYCOLAX) daily as needed 21 17 gram packet (Constipation) for up to 3 days. senna (SENOKOT) Take 1 tablet (8.6 0 07/11/202006/18 Active 8.6 mg tablet mg total) by mouth 22 nightly. heparin injection Inject 1 mL (5,000 1 mL 0 07/11/2020 Active 5,000 units/mL Units total) subcutaneously every 8 (eight) hours. lidocaine Place 1 patch onto 30 patch 0 07/12/2020 08/11/19 Active (LIDODERM) 5 % the skin daily for 21 patch 30 days Remove & Discard patch within 12 hours or as directed by MD. Active Problems Problem Noted Date Femoral fracture 07/06/2020 Encounters Date Type Specialty Care Team Description 07/07/2020 Anesthesia Event John Vasques MD Lai, Ifeanyi Rodriguez MD 07/07/2020 Surgery [place], ARTHROPLASTY,PA P Peyman Fox MD 07/06/2020 - Hospital Encounter General Internal [facility] Mely sed fracture of left femur, unspecified fracture morphology, unspecified portion of femur, initial encounter ([facility]); 07/12/2020 Medicine , MD Ab ANKITA (acute kidney injury) ([facility]); [place], Hyperkalemia; Dmitri Espinosa MD Physical deco nditioning; CKD (chronic ki dney disease) stage 4, GFR 15-29 ml/min ([facility]) after 07/12/2019 Social History Tobacco Use Types Packs/Day Years Used Date Never Assessed Sex Assigned at Date Recorded Not on file Last Filed Vital Signs Vital Sign Reading Time Taken Comments Blood Pressure 118/64 07/12/2020 4:00 PM [employer] Pulse 80 07/12/2020 4:00 PM [employer]ATION ENGINEER Temperature 36.3 C (97.3 F) 07/12/2020 4:00 PM [employer]ATION ENGINEER Respiratory Rate 20 07/12/2020 4:00 PM [employer]ATION ENGINEER Oxygen Saturation 99% 07/12/2020 4:00 PM [employer] AND [employer]INATION ENGINEER Inhaled Oxygen Concentration 21% 07/11/2020 9:00 PM [employer]SM[employer] AND CO[employer]INATION ENGINEER Weight 63 kg (139 lb) 07/12/2020 6:00 AM [employer]SMISSION AND COORDINATION ENGINEER Height - - Body Mass Index - - Plan of Treatment Health Maintenance Due Date Last Done Comments DTAP/TDAP/TD VACCINES (1 - Tdap) 09/15/1937 PNEUMOCOCCAL 65+ YRS (1 of 1 - [id number] PCV13) 1997 INFLUENZA VACCINE (#1) 2020 DEPRESSION SCREENING (12+) 06/17/2020 Implants Implanted Type Area Dancing Master Device Shelf Model / Identifier Expiration Serial / Date Lot Cement Bone Smplx Tobra 40gm 6197-9-001 - [id number] IMPLANTS Left: LIOR:LIOR 08/14/2021 [id number] / Implanted: Qty: 1 on 07/07/2020 by Peyman Santamaria MD at [facility] Hip ORTHOPAEDICS / [id number] Stem Fem C Accolade Cemented [id number] - [id number] TOTAL JOIN T Left: LIOR:LIOR 12/02/2023 [id number] / Implanted: Qty: 1 on 07/07/2020 by Peyman Santamaria MD at [facility] CONSTRUCT Hip ORTHOPAEDICS / [id number] Head Fem Endo Unitrax 42 Vit [id number] - [id number] TOTAL JOIN T Left: LIOR:LIOR 01/16/2025 [id number] / Implanted: Qty: 1 on 07/07/2020 by Peyman Santamaria MD at [facility] CONSTRUCT Hip ORTHOPAEDICS / [id number] Sleeve Adj Unitrax V40 5d 4mm 6942-6-060 - [id number] TOTAL JOIN T Left: LIOR:LIOR 09/01/2024 [id number] / Implanted: Qty: 1 on 07/07/2020 by Peyman Santamaria MD at [facility] CONSTRUCT Hip ORTHOPAEDICS / [id number] Spacer Dst Accolade 11mm [id number] - [id number] TOTAL JOINT L eft: LIOR:LIOR 12/29/2024 [id number] / Implanted: Qty: 1 on 07/07/2020 by Peyman Santamaria MD at [facility] CONSTRUCT Hip ORTHOPAEDICS / [id number] Procedures Procedure Name Priority Date/Time Associated Comments Diagnosis CT BRAIN WITHOUT IV STAT 07/12/2020 5:30 Resu lts for this CONTRAST PM [employer]ER procedure are i n the results section. XR HIP 2 VIEWS LEFT STAT 07/12/2020 2:54 Resu lts for this PM [employer] ENG[employer]ER procedure are i n the results section. SARS-COV2/RT-PCR ([facility] Routine 07/12/2020 1:35 R esults for this & REF LABS) PM [employer]INATION ENGINEER procedure are i n the results section. POCT-GLUCOSE METER Routine 07/12/2020 12:28 Resul ts for this PM [employer] ENGINEER procedure are i n the results section. POCT-GLUCOSE METER Routine 07/12/2020 8:16 Resul ts for this AM [employer]SM[employer] AND [employer]INATION ENGINEER procedure are i n the results section. MAGNESIUM Routine 07/12/2020 5:30 Results for this AM [employer] AND [employer]INATION ENGINEER procedure are i n the results section. CBC (HEMOGRAM ONLY) Routine 07/12/2020 5:30 Resu lts for this AM [employer]INATION ENGINEER procedure are i n the results section. PHOSPHORUS Routine 07/12/2020 5:30 Results for this AM [employer]INATION ENGINEER procedure are i n the results section. BASIC METABOLIC PANEL Routine 07/12/2020 5:30 Re sults for this (7) AM [employer]SM[employer] AND [employer]INATION ENGINEER procedure are i n the results section. POCT-GLUCOSE METER Routine 07/11/2020 9:10 Resul ts for this PM [employer] ENGINEER procedure are i n the results section. POCT-GLUCOSE METER Routine 07/11/2020 5:53 Resul ts for this PM [employer]INATION ENGINEER procedure are i n the results section. POCT-GLUCOSE METER Routine 07/11/2020 12:10 Resul ts for this PM [employer]SM[employer] AND [employer]INATION ENGINEER procedure are i n the results section. POCT-GLUCOSE METER Routine 07/11/2020 8:06 Resul ts for this AM [employer]INATION ENGINEER procedure are i n the results section. MAGNESIUM Routine 07/11/2020 6:08 Results for this AM [employer]SM[employer] AND CO[employer]INATION ENGINEER procedure are i n the results section. CBC (HEMOGRAM ONLY) Routine 07/11/2020 6:08 Resu lts for this AM [employer]SM[employer] AND COORDINATION ENGINEER procedure are i n the results section. PHOSPHORUS Routine 07/11/2020 6:08 Results for this AM [employer] AND [employer]INATION ENGINEER procedure are i n the results section. BASIC METABOLIC PANEL Routine 07/11/2020 6:08 Re sults for this (7) AM [employer]SM[employer] AND [employer]INATION ENGINEER procedure are i n the results section. POCT-GLUCOSE METER Routine 07/10/2020 9:48 Resul ts for this PM [employer]ATION [employer]INEER procedure are i n the results section. POCT-GLUCOSE METER Routine 07/10/2020 12:43 Resul ts for this PM [employer]INATION ENGINEER procedure are i n the results section. POCT-GLUCOSE METER Routine 07/10/2020 7:51 Resul ts for this AM [employer]INATION ENGINEER procedure are i n the results section. CBC (HEMOGRAM ONLY) Routine 07/10/2020 4:58 Resu lts for this AM [employer]INATION ENGINEER procedure are i n the results section. PHOSPHORUS Add-On 07/10/2020 4:57 Results for this AM [employer]ATION [employer]ER procedure are i n the results section. BASIC METABOLIC PANEL Routine 07/10/2020 4:57 Re sults for this (7) AM [employer]SM[employer]INATION ENGINEER procedure are i n the results section. POCT-GLUCOSE METER Routine 07/09/2020 9:21 Resul ts for this PM [employer]ATION ENGINEER procedure are i n the results section. POCT-GLUCOSE METER Routine 07/09/2020 6:22 Resul ts for this PM [employer] ENGINEER procedure are i n the results section. BLOOD GAS, VENOUS Routine 07/09/2020 1:44 Result s for this PM [employer]ER procedure are i n the results section. POCT-GLUCOSE METER Routine 07/09/2020 12:28 Resul ts for this PM [employer] ENGINEER procedure are i n the results section. LACTATE DEHYDROGENASE Routine 07/09/2020 8:47 Re sults for this (LDH) AM [employer]ATION ENGINEER procedure are i n the results section. URIC ACID Routine 07/09/2020 8:47 Results for this AM [employer] ENGINEER procedure are i n the results section. POCT-GLUCOSE METER Routine 07/09/2020 8:04 Resul ts for this AM [employer]INATION ENGINEER procedure are i n the results section. BASIC METABOLIC PANEL Routine 07/09/2020 5:50 Re sults for this (7) AM [employer]SM[employer]INATION ENGINEER procedure are i n the results section. CBC W/PLT COUNT & AUTO Routine 07/09/2020 4:46 R esults for this DIFFERENTIAL AM [employer]SM[employer]INATION ENGINEER procedure are i n the results section. PTH, INTACT Routine 07/09/2020 4:46 Results for this AM [employer]ATION ENGINEER procedure are i n the results section. PROTEIN Routine 07/09/2020 4:46 Results for this ELECTROPHORESIS, SERUM AM [employer]ATION ENGINEER proce dure are in the results section. CBC W/PLT COUNT & AUTO Routine 07/09/2020 4:46 R esults for this DIFFERENTIAL AM [employer]INATION ENGINEER procedure are i n the results section. POCT-GLUCOSE METER Routine 07/08/2020 9:11 Resul ts for this PM [employer] ENGINEER procedure are i n the results section. IMMUNOFIXATION Routine 07/08/2020 5:47 Results f or this ELECTROPHORESIS (MICHAELA) PM [employer] ENGINEER proced ure are in the results section. RPR Routine 07/08/2020 5:47 Results for this PM [employer] ENGINEER procedure are i n the results section. HEMOGLOBIN A1C AP Routine 07/08/2020 5:47 Results f or this PM [employer]ER procedure are i n the results section. PHOSPHORUS Add-On 07/08/2020 1:25 Results for this PM [employer] ENGINEER procedure are i n the results section. CHLORIDE, RANDOM URINE Add-On 07/08/2020 1:25 R esults for this PM [employer] ENGINEER procedure are i n the results section. SODIUM, RANDOM URINE Routine 07/08/2020 1:25 Res ults for this PM [employer] ENGINEER procedure are i n the results section. POTASSIUM, RANDOM URINE Add-On 07/08/2020 1:25 Results for this PM [employer] ENGINEER procedure are i n the results section. URINE IMMUNOFIXATION, Add-On 07/08/2020 1:25 Re sults for this RANDOM PM [employer]ATION ENGINEER procedure are i n the results section. URINE PROTEIN Add-On 07/08/2020 1:25 Results fo r this ELECTROPHORESIS, RANDOM PM [employer] ENGINEER proc edure are in the results section. CREATININE, RANDOM Add-On 07/08/2020 1:25 Resul ts for this URINE PM [employer]ATION ENGINEER procedure are i n the results section. BASIC METABOLIC PANEL Routine 07/08/2020 1:25 Re sults for this (7) PM [employer] ENGINEER procedure are i n the results section. PROTEIN, RANDOM URINE Routine 07/08/2020 1:25 Re sults for this PM [employer] ENGINEER procedure are i n the results section. URINALYSIS W/ REFLEX Routine 07/08/2020 11:39 Res ults for this URINE CULTURE AM [employer]INATION ENGINEER procedure are in the results section. URINE CULTURE Routine 07/08/2020 11:39 Results fo r this AM [employer] ENGINEER procedure are i n the results section. CBC W/PLT COUNT & AUTO Routine 07/08/2020 10:40 R esults for this DIFFERENTIAL AM [employer]ATION ENGINEER procedure are i n the results section. HEPATITIS C ANTIBODY Add-On 07/08/2020 10:40 Res ults for this AM [employer] ENGINEER procedure are i n the results section. HC LAB HIV-1 AG Add-On 07/08/2020 10:40 Results for this W/HIV-1&2 AB AM [employer] ENGINEER procedure are i n the results section. VITAMIN B12 AND FOLATE Routine 07/08/2020 10:40 R esults for this AM [employer]ATION ENGINEER procedure are i n the results section. FERRITIN Add-On 07/08/2020 10:40 Results for this AM [employer]INATION ENGINEER procedure are i n the results section. IRON, TIBC, % SAT. Add-On 07/08/2020 10:40 Resul ts for this (WITHOUT FERRITIN) AM [employer]INATION ENGINEER procedure are in the results section. CBC W/PLT COUNT & AUTO Routine 07/08/2020 10:40 R esults for this DIFFERENTIAL AM [employer]ATION ENGINEER procedure are i n the results section. ECG 12-LEAD Routine 07/08/2020 8:43 Results for this AM [employer] ENGINEER procedure are i n the results section. CBC W/PLT COUNT & AUTO Routine 07/08/2020 6:02 R esults for this DIFFERENTIAL AM [employer]ATION ENGINEER procedure are i n the results section. RETICULOCYTE COUNT Add-On 07/08/2020 6:02 Resul ts for this AM [employer] ENGINEER procedure are i n the results section. CREATINE KINASE (CK) Add-On 07/08/2020 6:02 Res ults for this AM [employer] ENGINEER procedure are i n the results section. CBC W/PLT COUNT & AUTO Routine 07/08/2020 6:02 R esults for this DIFFERENTIAL AM [employer]ATION ENGINEER procedure are i n the results section. BASIC METABOLIC PANEL Routine 07/08/2020 6:02 Re sults for this (7) AM [employer] ENGINEER procedure are i n the results section. US RENAL COMPLETE Routine 07/08/2020 4:30 Result s for this AM [employer] ENGINEER procedure are i n the results section. POCT-GLUCOSE METER Routine 07/07/2020 9:24 Resul ts for this PM [employer]ER procedure are i n the results section. XR CHEST 1 VIEW LUPE 07/07/2020 8:48 Results for this PORTABLE/BEDSIDE PM [employer] ENGINEER procedure a re in the results section. XR PELVIS 1 OR 2 VIEWS LUPE 07/07/2020 8:48 R esults for this PM [employer]ATION ENGINEER procedure are i n the results section. CALCIUM, IONIZED STAT 07/07/2020 4:57 Results for this PM [employer]INEER procedure are i n the results section. HGB/HCT (H&H) - STAT STAT 07/07/2020 4:57 Res ults for this LAB PM [employer] ENGINEER procedure are i n the results section. GLUCOSE-STAT LAB STAT 07/07/2020 4:57 Results for this PM [employer]INEER procedure are i n the results section. POTASSIUM-STAT LAB STAT 07/07/2020 4:57 Resul ts for this PM [employer]ER procedure are i n the results section. SODIUM NA-STAT LAB STAT 07/07/2020 4:57 Resul ts for this PM [employer]ER procedure are i n the results section. BLOOD GAS, ARTERIAL STAT 07/07/2020 4:57 Resu lts for this PM [employer]ER procedure are i n the results section. BLOOD GAS, ARTERIAL STAT 07/07/2020 4:57 Resu lts for this PM [employer] ENG[employer]ER procedure are i n the results section. ARTHROPLASTY,HIP 07/07/2020 3:44 Closed fracture of PM [employer]ION [employer]INATION ENGINEER left hip, initial encounter (HCC) ECG 12-LEAD STAT 07/07/2020 1:09 Results for this PM [employer] ENGINEER procedure are i n the results section. POTASSIUM Routine 07/07/2020 12:37 Results for this PM [employer] ENGINEER procedure are i n the results section. VITAMIN B12 AND FOLATE Routine 07/07/2020 12:37 R esults for this PM [employer] ENGINEER procedure are i n the results section. URINALYSIS MICROSCOPIC Routine 07/07/2020 12:31 R esults for this PM [employer]ER procedure are i n the results section. CREATININE, RANDOM Routine 07/07/2020 12:31 Resul ts for this URINE PM [employer]ATION ENGINEER procedure are i n the results section. SODIUM, RANDOM URINE Routine 07/07/2020 12:31 Res ults for this PM [employer] ENGINEER procedure are i n the results section. URINALYSIS WITH Routine 07/07/2020 12:31 Results for this MICROSCOPIC IF PM [employer]INATION ENGINEER procedure are in INDICATED the results section. POCT-GLUCOSE METER Routine 07/07/2020 11:31 Resul ts for this AM [employer]ATION ENGINEER procedure are i n the results section. POCT-GLUCOSE METER Routine 07/07/2020 10:26 Resul ts for this AM [employer]ATION ENGINEER procedure are i n the results section. SARS-COV2/RT-PCR ([facility] STAT 07/07/2020 6:17 R esults for this & REF LABS) AM [employer]ATION ENGINEER procedure are i n the results section. ABORH, MANUAL STAT 07/07/2020 5:54 Results fo r this AM [employer] ENGINEER procedure are i n the results section. CBC W/PLT COUNT & AUTO Routine 07/07/2020 5:25 R esults for this DIFFERENTIAL AM [employer] ENGINEER procedure are i n the results section. TYPE AND SCREEN, Routine 07/07/2020 5:25 Results for this AUTOMATED AM [employer] ENGINEER procedure are i n the results section. PT/APTT Routine 07/07/2020 5:25 Results for this AM [employer] ENGINEER procedure are i n the results section. MAGNESIUM Routine 07/07/2020 5:25 Results for this AM [employer] ENGINEER procedure are i n the results section. BASIC METABOLIC PANEL Routine 07/07/2020 5:25 Re sults for this (7) AM [employer] ENGINEER procedure are i n the results section. HEPATIC FUNCTION PANEL Routine 07/07/2020 5:25 R esults for this AM [employer] ENGINEER procedure are i n the results section. CBC W/PLT COUNT & AUTO Routine 07/07/2020 5:25 R esults for this DIFFERENTIAL AM [employer] ENGINEER procedure are i n the results section. after 07/12/[address] brain without IV contrast (07/12/2020 5:30 PM TRANSMISSION AND COORDINATION ENGINEER) Specimen Narrative Performed At FINAL REPORT [facility] CT, BRAIN, WITHOUT CONTRAST INDICATION: Headache, post traumatic TECHNIQUE: Noncontrast axial imaging was obtained from the vertex to the skull base. Axial images were recons tructed using a bone algorithm. DOSE REDUCTION: Dose modulation, iterati ve reconstruction, and/or weight-based adjustment of the mA/kV was utilized to reduce the radiation dose to as low as reasonably a chievable. COMPARISON: CT 02/26/2007 FINDINGS: Intracranial: No intracranial hemorrhage or abnormal extra-axial collection. No evidence of acute territo rial infarct. No mass effect. No hydrocephalus. Generalized cerebral atrophy with ex vac uo dilatation of the ventricular system proportionate to sulc i. Scattered foci of hypoattenuation within the periventricul ar and subcortical white matter are a nonspecific finding commonl y attributed to chronic small vessel ischemic disease. These findings have progressed since 2006. Osseous structures: No fracture. No susp icious lesion. Paranasal sinuses and mastoid air cells: No evidence of sinusitis. Mastoids are clear. Orbital contents: Globes are intact. IMPRESSION: No acute intracranial hemorrhage. If there is persistent clinical concern for intracranial pathology, MR examination is recommended for furthe r characterization. Signed: Ugo Santamaria MD Report Verified Date/Time: 07/12/2020 17:34:53 Procedure Note Interface, External Ris In - 07/12/2020 5:37 PM TRANSMISSION AND COORDINATION ENGINEER FINAL REPORT CT, BRAIN, WITHOUT CONTRAST INDICATION: Headache, post traumatic TECHNIQUE: Noncontrast axial imaging was obtained from the vertex to the skull base. Axial images were recons tructed using a bone algorithm. DOSE REDUCTION: Dose modulation, iterati ve reconstruction, and/or weight-based adjustment of the mA/kV was utilized to reduce the radiation dose to as low as reasonably a chievable. COMPARISON: CT 02/26/2007 FINDINGS: Intracranial: No intracranial hemorrhage or abnormal extra-axial collection. No evidence of acute territo rial infarct. No mass effect. No hydrocephalus. Generalized cerebral atrophy with ex vac uo dilatation of the ventricular system proportionate to sulc i. Scattered foci of hypoattenuation within the periventricul ar and subcortical white matter are a nonspecific finding commonl y attributed to chronic small vessel ischemic disease. These findings have progressed since 2006. Osseous structures: No fracture. No susp icious lesion. Paranasal sinuses and mastoid air cells: No evidence of sinusitis. Mastoids are clear. Orbital contents: Globes are intact. IMPRESSION: No acute intracranial hemorrhage. If there is persistent clinical concern for intracranial pathology, MR examination is recommended for furthe r characterization. Signed: Ugo Santamaria MD Report Verified Date/Time: 07/12/2020 1 7:34:53 Performing Organization Address City/State/Zipcode Phone Number [facility] XR hip 2 views left (07/12/2020 2:54 PM TRANSMISSION AND COORDINATION ENGINEER) Specimen Narrative Performed At FINAL REPORT [facility] CLINICAL HISTORY: Fall, s/p L hip arthro plasty, fell today just prior to discharge TECHNIQUE: 2 views of the left hip with AP pelvis. COMPARISON: Pelvis 07/07/2020 IMPRESSION: There is a left hip arthroplasty without evidence of fracture or dislocation. The bony pelvis otherwise a ppears intact. Signed: Juanjose King MD Report Verified Date/Time: 07/12/2020 15:17:49 Reading Location: [facility] Reading Room Procedure Note Interface, External Ris In - 07/12/2020 3:20 PM [employer]SM[employer] AND COORDINATION ENGINEER FINAL REPORT CLINICAL HISTORY: Fall, s/p L hip arthro plasty, fell today just prior to discharge TECHNIQUE: 2 views of the left hip with AP pelvis. COMPARISON: Pelvis 07/07/2020 IMPRESSION: There is a left hip arthroplasty without evidence of fracture or dislocation. The bony pelvis otherwise a ppears intact. Signed: Juanjose King MD Report Verified Date/Time: 07/12/2020 1 5:17:49 Reading Location: [facility] Reading Room Performing Organization Address City/State/Zipcode Phone Number [facility] SARS-CoV2/RT-PCR (Asymptomatic ONLY) (07/12/2020 1:35 PM TRANSMISSION AND COORDINATION ENGINEER)Only the most recent of2 resultswithin the time period is included. SARS-COV2/RT-PCR Negative Not Detected, [facility] Negative, See [facility] external report CENTER for linked test SARS-COV-2 [facility] MELISSA [facility] PERFORMING LAB [facility] Specimen Other - Nasopharyngeal wall structure (b gianni structure) Narrative Performed At Negative result for this test determines that [facility] SARS-CoV-2 RNA was not present in the specimen above the Limit of Detection (LOD). However, Negative results do not preclude SARS-CoV-2 infection and should not be used as the sole basis for treatment or patient management decisions. Negative results must be combined with clinical observations, patient history, and epidemiological information. A false negative result may occur if a specimen is improperly collected, transported or handled. A false negative result should be considered if patient's recent exposures or clinical presentation indicate that COVID-19 (SARS-CoV-2) is likely and diagnostic tests for other causes of illness are negative. Re-testing should be considered in cases of suspected false negatives. The limit of detection for this assay is 800 copies/mL. This SARS CoV-2 test is a real-time RT-PCR test intended for the qualitative detection of nucleic acid from SARS-CoV-2 in a nasopharyngeal swab specimen collected from individuals suspected of COVID-19 by their healthcare provider. This test has not been Food and Drug Administration (FDA) cleared or approved. This is a modified version of an approved Emergency Use Authorization (EUA) and is in the process of review by the FDA. Once authorized by the FDA, the issued EUA will be effective until the declaration that circumstances exist justifying the authorization of the emergency use of in vitro diagnostic tests for detection and/or diagnosis of COVID-19 is terminated under Section 564(b)(2) of the Act or the EUA is revoked under Section 564(g) of the Act. Fact Sheet for Healthcare Providers: https://www.[employer]/sites/default/files/pro duct/documents/Fact_Sheet_HC_Providers_Lyra_SA RS-CoV-2.pdf Fact Sheet for Healthcare Patients: https://www.[employer]/sites/default/files/pro duct/documents/Fact_Sheet_Patients_Lyra_SARS-C oV-2.pdf Performing Laboratory: [address] [place] [address] Performing Organization Address City/State/Zipcode Phone Number [address] [address] CENTER POC-Glucose meter (07/12/2020 12:28 PM TRANSMISSION AND COORDINATION ENGINEER)Only the most recent of17 results within the time period is included. [facility] POC-Glucose Meter 159 (H) 70 - 110 mg/dL [facility] Comment: [facility] : TESTED AT [address], [address] CENTER : Director Park/Agricultural Service Worker ID = [id number] for Berta Fontenot Specimen Blood Performing Organization Address City/[facility] Phone Number [phone] [place] [address] CENTER CBC (Hemogram only) (07/12/2020 5:30 AM TRANSMISSION AND COORDINATION ENGINEER)Only the most recent of3 results within the time period is included. Pathologist Sig nature WBC 9.2 3.5 - 10.5 K/L [facility] RBC 2.34 (L) 3.93 - 5.22 M/L [facility] Hemoglobin 7.6 (L) 11.2 - 15.7 GM/DL [facility] Hematocrit 23.0 (L) 34.1 - 44.9 % [facility] MCV 98.3 (H) 79.4 - 94.8 fL [facility] MCH 32.5 (H) 25.6 - 32.2 pg [facility] MCHC 33.0 32.2 - 35.5 GM/DL [facility] RDW 13.0 11.7 - 14.4 % [facility] Platelets 165 150 - 450 K/CU MM [facility] MPV 12.4 (H) 9.4 - 12.3 fL [facility] nRBC 0 0 - 0 /100 WBC [facility] Specimen Blood Performing Organization Address City/[facility] Hospital[facility] Phone Number [facility] [address] [place] [address] CENTER Phosphorus (07/12/2020 5:30 AM TRANSMISSION AND COORDINATION ENGINEER)Only the most recent of4 resultswithin the time period is included. Pathologist Sig nature Phosphorus 3.8 2.3 - 4.7 mg/dL [facility] Specimen Blood Narrative Performed At Director Park ID - SM [facility] Performing Organization Address City/[facility]/Zipcode Phone Number [facility] [address] [place] [address] CENTER Magnesium (07/12/2020 5:30 AM TRANSMISSION AND COORDINATION ENGINEER)Only the most recent of3 resultswithin the time period is included. Pathologist Sig nature Magnesium 1.9 1.6 - 2.6 mg/dL [facility] Specimen Blood Narrative Performed At Director Park ID - SM [facility] Performing Organization Address City/[facility] Phone Number [facility] [address] [place] [address] [place] Basic Metabolic Panel (07/12/2020 5:30 AM TRANSMISSION AND COORDINATION ENGINEER)Only the most recent of7 results within the time period is included. Sodium 140 136 - 145 meq/L [facility] Potassium 4.2 3.5 - 5.1 meq/L [facility] Chloride 110 (H) 98 - 107 meq/L [facility] CO2 20 (L) 22 - 29 meq/L [facility] BUN 41 (H) 7 - 21 mg/dL [facility] Creatinine 2.46 (H) 0.57 - 1.25 [facility] mg/dL [facility] Glucose 128 (H) 70 - 105 mg/dL [facility] Calcium 7.6 (L) 8.4 - 10.2 [facility] mg/dL [facility] EGFR 19Comment: ESTIMATED mL/min/1.73 sq [facility] GFR IS NOT m [facility] ACCURATE [place] CREATININE CLEARANCE IN PREDICTING GLOMERULAR FILTRATION RATE. ESTIMATED GFR IS NOT APPLICABLE FOR DIALYSIS PATIENTS. Specimen Blood Narrative Performed At Director Park ID - SM [facility] Performing Organization Address [facility] Hospital[facility] Phone Number [facility] [address] [place] [address] [place] Blood gas, venous (07/09/2020 1:44 PM TRANSMISSION AND COORDINATION ENGINEER) Pathologist Sig nature pH, Siddhartha 7.33 7.32 - 7.42 [facility] pCO2, Siddhartha 43 41 - 51 mm Hg [facility] pO2, Siddhartha 29 25 - 40 mm Hg [facility] O2 Sat, Siddhartha 50.6 40.0 - 70.0 % [facility] HCO3, Siddhartha 22 21 - 29 mmol/L [facility] Base Excess, Siddhartha -3.3 (L) -2.0 - 3.0 [facility] mmol/L [facility] Patient Temperature 37.0 [facility] FIO2 21.0 [facility] Specimen Blood Performing Organization Address [facility] Hospital[facility] Phone Number [address] [address] CENTER Uric acid (07/09/2020 8:47 AM TRANSMISSION AND COORDINATION ENGINEER) Pathologist Sig nature Uric Acid 7.3 (H) 2.6 - 7.2 mg/dL [facility] Specimen Blood Narrative Performed At Director Park ID - CARLOS Shaver [facility] Performing Organization Address City/[facility]/Zipcode Phone Number [address] [address] CENTER Lactate dehydrogenase (LDH) (07/09/2020 8:47 AM TRANSMISSION AND COORDINATION ENGINEER) Pathologist Sig nature LDH 261 (H) 125 - 220 U/L [facility] Specimen Blood Narrative Performed At Director Park ID - CARLOS Shaver [facility] Performing Organization Address [facility] Hospital[facility] Phone Number [address] [address] CENTER CBC with platelet count + automated diff (07/09/2020 4:46 AM TRANSMISSION AND COORDINATION ENGINEER)Only the most recent of4 resultswithin the time period is included. Pathologist Sig nature WBC 7.0 3.5 - 10.5 [facility] K/L [facility] RBC 2.50 (L) 3.93 - 5.22 [facility] M/L [facility] Hemoglobin 8.0 (L) 11.2 - 15.7 [facility] GM/DL [facility] Hematocrit 24.4 (L) 34.1 - 44.9 % [facility] MCV 97.6 (H) 79.4 - 94.8 fL [facility] MCH 32.0 25.6 - 32.2 pg [facility] MCHC 32.8 32.2 - 35.5 [facility] GM/DL [facility] RDW 13.6 11.7 - 14.4 % [facility] Platelets 105 (L) 150 - 450 K/CU [facility] MM [facility] MPV 12.7 (H) 9.4 - 12.3 fL [facility] nRBC 0 0 - 0 /100 WBC [facility] % Neutros 66 % [facility] % Lymphs 20 % [facility] % Monos 10 % [facility] % Eos 4 % [facility] % Baso 0 % [facility] # Neutros 4.62 1.56 - 6.13 [facility] # Lymphs 1.37 1.18 - 3.74 [facility] # Monos 0.69 (H) 0.24 - 0.36 [facility] # Eos 0.25 0.04 - 0.36 [facility] # Baso 0.03 0.01 - 0.08 [facility] Immature 1 0 - 1 % [facility] Granulocytes-Relative [facility] Specimen Blood Performing Organization Address City/[facility]/Zipcode Phone Number [phone] [place] [address] [place] Protein electrophoresis, serum (07/09/2020 4:46 AM TRANSMISSION AND COORDINATION ENGINEER) Albumin Fraction 1.8 (L) 3.5 - 5.5 [facility] gm/dL [facility] Alpha 1 Fraction 0.5 (H) 0.2 - 0.4 [facility] gm/dL [facility] Alpha 2 Fraction 0.8 0.5 - 0.9 [facility] gm/dL [facility] Beta Fraction 0.6 0.6 - 1.1 [facility] gm/dL [facility] Gamma Globulin 0.9 0.7 - 1.7 [facility] Fraction gm/dL [facility] Interpretation Small band present in [facility] terminal gamma region; [facility] concentration is MEDICAL CENTER insufficient to accurately quantitate. Serum MICHAELA for characterization is pending. Pathologist: Kim Zamora MD [facility] (electronic signature) [facility] Protein, Total 4.6 (L) 6.0 - 8.3 [facility] gm/[facility] Specimen Blood Narrative Performed At Director Park ID - RADHA Aleman [facility] Performing Organization Address City/[facility]/Zipcode Phone Number [address] [address] CENTER PTH, intact (07/09/2020 4:46 AM TRANSMISSION AND COORDINATION ENGINEER) Pathologist Sig fausto PTH 278.4 (H) 8.5 - 72.5 pg/mL [facility] Specimen Blood Narrative Performed At Director Park ID - ADMIN [facility] Performing Organization Address City/[facility]/Zipcode Phone Number [facility] [address] [place] [address] CENTER RPR (07/08/2020 5:47 PM TRANSMISSION AND COORDINATION ENGINEER) Pathologist Sig nature RPR Nonreactive Nonreactive [facility] Specimen Blood Performing Organization Address City/[facility]/Zipcode Phone Number [address] [address] CENTER Immunofixation electrophoresis (MICHAELA) (07/08/2020 5:47 PM TRANSMISSION AND COORDINATION ENGINEER) IgG [phone] [facility] mg/dL [facility] IgA 205 63 - 484 [facility] mg/dL [facility] IgM 68 22 - 293 [facility] mg/dL [facility] Serum MICHAELA No monoclonal [facility] Identification proteins detected. [facility] distribution of immunoglobulins. Pathologist: Kim Zamora [facility] (electronic [facility]) [facility] Specimen Blood Narrative Performed At Director Park ID - RADHA C [facility] Performing Organization Address [facility]/Zipcode Phone Number [address] [address] [place] Hemoglobin A1c (07/08/2020 5:47 PM TRANSMISSION AND COORDINATION ENGINEER) Pathologist Sig nature Hemoglobin A1C 6.8 (H) 4.3 - 6.1 % [facility] Specimen Blood Performing Organization Address [facility]/Zipcode Phone Number [address] [address] [place] Sodium, random urine (07/08/2020 1:25 PM TRANSMISSION AND COORDINATION ENGINEER)Only the most recent of2 results within the time period is included. Pathologist Sig nature Sodium Urine 45 meq/L [facility] Specimen Urine Narrative Performed At Reference Range: No Normals [facility] Director Park ID - RADHA C Performing Organization Address City/[facility]/Zipcode Phone Number [address] [address] CENTER Protein, random urine (07/08/2020 1:25 PM TRANSMISSION AND COORDINATION ENGINEER) Pathologist Sig nature Protein, Urine >392 (H) 0 - 14 mg/dL [facility] Specimen Urine Narrative Performed At Director Park ID - RADHA Love [facility] Performing Organization Address City/State/Zipcode Phone Number [facility] [address] [place] [address] CENTER Urine Protein Electrophoresis, random (07/08/2020 1:25 PM TRANSMISSION AND COORDINATION ENGINEER) Protein, Urine 413 (H) 0 - 14 mg/dL [facility] Albumin %, Urine 58.2 % [facility] Globulin %, Urine 41.8 % [facility] UPEP,ID At least one band [facility] present in [facility] region. [facility] C[facility] pending for further characterization. Pathologist: Kim DUBOIS [facility] HOSPITALMADELINERaphael Zamora MD [facility] (electronic MEDICAL CENTER signature) Specimen Urine Narrative Performed At Director Park ID - CARLOS Shaver [facility] Performing Organization Address City/[facility]/Zipcode Phone Number [address] [address] [place] Potassium, random urine (07/08/2020 1:25 PM TRANSMISSION AND COORDINATION ENGINEER) Pathologist Sig nature Potassium Urine 39.9 meq/L [facility] Specimen Urine Narrative Performed At Reference Range: No Normals [facility] Director Park ID - RADHA Aleman Performing Organization Address City/State/Zipcode Phone Number [phone] [place] [address] CENTER Urine Immunofixation, random (07/08/2020 1:25 PM TRANSMISSION AND COORDINATION ENGINEER) Protein, Urine 413 (H) 0 - 14 mg/dL [facility] Albumin %, Urine 58.2 % [facility] Globulin %, Urine 41.8 % [facility] URINE MICHAELA ID UIFE to be repeated; [facility] previous results [facility] incorrect.Comment: MEDICAL CENTER This is a corrected result. Previous result was No monoclonal proteins detected. Polyclonal distribution of immunoglobulins. on 07/11/2020 at 1611 TRANSMISSION AND COORDINATION ENGINEER Pathologist: SHERLY Barnhart MD (electronic [facility] signature) MEDICAL [place] Specimen Urine Narrative Performed At Director Park ID - RADHA Aleman [facility] Performing Organization Address [facility] Phone Number [address] [address] [place] Creatinine, random urine (07/08/2020 1:25 PM TRANSMISSION AND COORDINATION ENGINEER)Only the most recent of2 resultswithin the time period is included. Pathologist Sig nature Creatinine, Ur 87.0 mg/dL [facility] [place] Specimen Urine Narrative Performed At Reference Range: No Normals [facility] Director Park ID - RADHA Aleman Performing Organization Address [facility] [place] [address] [place] Chloride, random urine (07/08/2020 1:25 PM TRANSMISSION AND COORDINATION ENGINEER) Pathologist Sig nature ChlorideUr 33 meq/L [facility] Specimen Urine Narrative Performed At Reference Range: No Normals [facility] Director Park ID - RADHA Aleman Performing Organization Address [facility] Phone Number [address] [address] [place] Urinalysis w/Microscopic + Reflex to Culture (07/08/2020 11:39 AM TRANSMISSION AND COORDINATION ENGINEER) Color, UA Light Yellow [facility] Clarity, UA Hazy [facility] Specific [place], 1.016 1.001 - 1.035 [facility] pH, UA 6.0 5.0 - 8.0 [facility] Protein, UA 300 mg/dL (A) Negative [facility] Glucose, UA 70 mg/dL (A) Negative [facility] Ketones, UA Negative Negative [facility] Bilirubin, UA Negative Negative [facility] Blood, UA Moderate (A) Negative [facility] Nitrite, UA Negative Negative [facility] Leukocytes, UA Small (A) Negative [facility] Urobilinogen, UA 0.2 0.2 - 1.0 mg/dL [facility] RBC, UA 1 /HPF [facility] WBC, UA 19 /HPF [facility] Bacteria, UA Few [facility] Mucus Rare [facility] Specimen Source [facility] Specimen Urine - Urinary catheter, device (physic al object) Narrative Performed At Director Park ID - [auto] [facility] Director Park ID - tech Performing Organization Address City/[facility]/Zipcode Phone Number [address] [address] [place] Urine culture (07/08/2020 11:39 AM TRANSMISSION AND COORDINATION ENGINEER) Pathologist Sig nature Result No growth [facility] [place] Specimen Urine - Urinary catheter, device (physic al object) Performing Organization Address City/[facility]/Zipcode Phone Number [facility] [address] [place] [address] [place] Vitamin B12 and Folate (07/08/2020 10:40 AM TRANSMISSION AND COORDINATION ENGINEER)Only the most recent of2 results within the time period is included. Pathologist Sig nature Vitamin B12 381 213 - 816 pg/mL [facility] Folate 9.40 >=7.00 ng/mL [facility] Specimen Blood Narrative Performed At Director Park ID - RADHA Aleman [facility] Performing Organization Address City/[facility]/Zipcode Phone Number [address] [address] CENTER Iron, TIBC, % sat. (without ferritin) (07/08/2020 10:40 AM TRANSMISSION AND COORDINATION ENGINEER) Pathologist Sig nature Iron 36.0 (L) 40.0 - 160.0 [facility] ug/dL [facility] TIBC 194 (L) 250 - 450 ug/dL [facility] Iron % Saturation 19 (L) 20 - 55 % [facility] Specimen Blood Narrative Performed At Director Park ID - RADHA C [facility] Performing Organization Address City/[facility]/Zipcode Phone Number [address] [address] CENTER HIV-1 Antigen with HIV-1/2 Antibody (07/08/2020 10:40 AM TRANSMISSION AND COORDINATION ENGINEER) Pathologist Sig nature HIV-1 Antigen with Nonreactive Nonreactive [facility] HIV 1&2 Antibody [facility] Specimen Blood Narrative Performed At Director Park ID - RADHA Aleman [facility] Performing Organization Address City/[facility]/Zipcode Phone Number [address] [address] CENTER Hepatitis C antibody (07/08/2020 10:40 AM TRANSMISSION AND COORDINATION ENGINEER) Pathologist Sig nature Hepatitis C Ab Nonreactive Nonreactive [facility] Specimen Blood Narrative Performed At Director Park ID - RADHA C [facility] Performing Organization Address City/[facility]/Zipcode Phone Number [address] [address] CENTER Ferritin (07/08/2020 10:40 AM TRANSMISSION AND COORDINATION ENGINEER) Pathologist Sig nature Ferritin 106.31 5.00 - 275.00 ng/mL [facility] Specimen Blood Narrative Performed At Director Park ID - RADHA Aleman [facility] Performing Organization Address [facility] Phone Number [facility] [address] [place] [address] [place] ECG 12 lead (07/08/2020 8:43 AM TRANSMISSION AND COORDINATION ENGINEER)Only the most recent of2 resultswithin the time period is included. Specimen Narrative Performed At This result has an attachment that is no t available. Ventricular Rate 86 BPM GE MUSE Atrial Rate 89 BPM QRS Duration 76 ms Q-T Interval 360 ms QTC Calculation(Bazett) 430 ms R Stephan -50 degrees T Stephan 33 degrees Accelerated Junctional rhythm Left anterior fascicular block Junctional ST depression, probably normal Abnormal ECG When compared with ECG of 07-JUL-2020 13:09, Junctional rhythm has replaced Sinus rhythm Confirmed by MD MOE, PAYAM ([id number]) on 07/10/2020 2: 31:00 PM Procedure Note Interface, External Ris In - 07/10/2020 2:31 PM TRANSMISSION AND COORDINATION ENGINEER Ventricular Rate 86 BPM Atrial Rate 89 BPM QRS Duration 76 ms Q-T Interval 360 ms QTC Calculation(Bazett) 430 ms R Stephan -50 degrees T Stephan 33 degrees Accelerated Junctional rhythm Left anterior fascicular block Junctional ST depression, probably lorenzo l Abnormal ECG When compared with ECG of 07-JUL-2020 13 :09, Junctional rhythm has replaced Sinus rhy thm Confirmed by MD ROSA RUPA ([id number]) o n 07/10/2020 2:31:00 PM Performing Organization Address City/[facility] Phone Number MUSE Reticulocyte count (07/08/2020 6:02 AM TRANSMISSION AND COORDINATION ENGINEER) Pathologist Sig nature % Retic 1.2 0.5 - 1.7 % [facility] Specimen Blood Narrative Performed At Director Park ID - [id number] [facility] Performing Organization Address [facility] Phone Number [facility] [address] [place] [address] CENTER Creatine Kinase (CK) (07/08/2020 6:02 AM TRANSMISSION AND COORDINATION ENGINEER) Pathologist Sig nature Total CK 383 (H) 29 - 200 U/L [facility] Specimen Blood Narrative Performed At Director Park ID - RADHA Aleman [facility] Performing Organization Address City/State/Zipcode Phone Number [facility] [address] [place] [address] CENTER US renal complete (07/08/2020 4:30 AM TRANSMISSION AND COORDINATION ENGINEER) Specimen Narrative Performed At FINAL REPORT [facility] Renal ultrasound dated 07/08/2020 Comment: Real-time transabdominal donna l ultrasound was performed. Right kidney measures 9.5 x 4.7 x 5.0 cm . Left kidney measures 8.7 x 4.3 x 4.3 cm. Right renal cortex measu res 1.2 cm. Left renal cortex measures 1.1 cm. Echogenicity of both renal parenchyma is normal. A 1.9 x 2.1 x 1.7 cm and 1.2 x 1.1 x 1.1 cm cysts are seen in right kidney. A 0.7 x 0.8 cm cyst is seen in t he left kidney. A 5 x 4 x 5 mm, 6 x 5 x 6 mm, and 7 x 5 x 6 mm stones are seen in the right kidney. No hydronephrosis or hydro ureter is apparent. The urinary bladder is contracted. Doppler ultrasound demonstrates patent m ain renal artery and vein bilaterally. Impression: 1. Bilateral renal cysts. 2. Nonobstructive right renal stones. Signed: Carmita Muñoz MD Report Verified Date/Time: 07/08/2020 11:14:30 Procedure Note Interface, External Ris In - 07/08/2020 11:16 AM TRANSMISSION AND COORDINATION ENGINEER FINAL REPORT Renal ultrasound dated 07/08/2020 Comment: Real-time transabdominal renal ultrasound was performed. Right kidney measures 9.5 x 4.7 x 5.0 cm . Left kidney measures 8.7 x 4.3 x 4.3 cm. Right renal cortex measur es 1.2 cm. Left renal cortex measures 1.1 cm. Echogenicity of both renal parenchyma is normal. A 1.9 x 2.1 x 1.7 cm and 1.2 x 1.1 x 1.1 cm cysts are seen in right kidney. A 0.7 x 0.8 cm cyst is seen in t he left kidney. A 5 x 4 x 5 mm, 6 x 5 x 6 mm, and 7 x 5 x 6 mm stones are seen in the right kidney. No hydronephrosis or hydro ureter is apparent. The urinary bladder is contracted. Doppler ultrasound demonstrates patent m ain renal artery and vein bilaterally. Impression: 1. Bilateral renal cysts. 2. Nonobstructive right renal stones. Signed: Carmita Muñoz MD Report Verified Date/Time: 07/08/2020 1 1:14:30 Performing Organization Address City/State/Zipcode Phone Number [facility] XR chest 1 view portable / bedside (07/07/2020 8:48 PM TRANSMISSION AND COORDINATION ENGINEER) Specimen Narrative Performed At FINAL REPORT [facility] Chest one view. Clinical history: postop Comparison: Chest radiograph 02/25/2007. Technique: A single frontal view of the chest was obtained. Findings: The cardiac silhouette is mildly enlarge d. The aorta is tortuous and atherosclerotic. There is a left coronar y artery stent. There is a calcified right mediastinal lymph node. There is no focal pulmonary consolidation, pleural effusion or pneum othorax. There is no pulmonary edema. The osseous structures are demineralized . There are mild degenerative changes of the bilateral shoulders. Ther e is spondylosis deformans. Impression: Mild cardiomegaly. No pulmonary edema or focal pulmonary co nsolidation. Signed: Angel Sexton MD Report Verified Date/Time: 07/08/2020 01:09:12 Procedure Note Interface, External Ris In - 07/08/2020 1:11 AM TRANSMISSION AND COORDINATION ENGINEER FINAL REPORT Chest one view. Clinical history: postop Comparison: Chest radiograph 02/25/2007. Technique: A single frontal view of the chest was obtained. Findings: The cardiac silhouette is mildly enlarge d. The aorta is tortuous and atherosclerotic. There is a left coronar y artery stent. There is a calcified right mediastinal lymph node. There is no focal pulmonary consolidation, pleural effusion or pneum othorax. There is no pulmonary edema. The osseous structures are demineralized . There are mild degenerative changes of the bilateral shoulders. Ther e is spondylosis deformans. Impression: Mild cardiomegaly. No pulmonary edema or focal pulmonary co nsolidation. Signed: Angel Sexton MD Report Verified Date/Time: 07/08/2020 0 1:09:12 Performing Organization Address City/[facility] Phone Number [facility] XR pelvis 1 or 2 views (07/07/2020 8:48 PM TRANSMISSION AND COORDINATION ENGINEER) Specimen Narrative Performed At FINAL REPORT [facility] RAD, PELVIS, 1 OR 2 VIEWS INDICATION: postop COMPARISON: None TECHNIQUE: AP view of the pelvis FINDINGS/IMPRESSION: Left hip arthroplasty. No periprosthetic fracture. Signed: Jarrod Unger MD Report Verified Date/Time: 07/08/2020 07:42:18 Reading Location: [facility] Reading Room Procedure Note Interface, External Ris In - 07/08/2020 7:44 AM TRANSMISSION AND COORDINATION ENGINEER FINAL REPORT RAD, PELVIS, 1 OR 2 VIEWS INDICATION: postop COMPARISON: None TECHNIQUE: AP view of the pelvis FINDINGS/IMPRESSION: Left hip arthroplasty. No periprosthetic fracture. Signed: Jarrod Unger MD Report Verified Date/Time: 07/08/2020 0 7:42:18 Reading Location: [facility] Reading Room Performing Organization Address City/State/Elevatecode Phone Number GE [facility] Calcium, Ionized (07/07/2020 4:57 PM TRANSMISSION AND COORDINATION ENGINEER) Pathologist Sig nature Calcium, Ion 1.11 (L) 1.12 - 1.27 mmol/L [facility] pH, Blood 7.21 [facility] Specimen Blood - Arterial line (physical object) Performing Organization Address City/[facility]/Zipcode Phone Number [address] [address] CENTER Potassium-Stat Lab (07/07/2020 4:57 PM TRANSMISSION AND COORDINATION ENGINEER) Pathologist Sig nature Potassium 4.5 3.6 - 5.5 meq/L [facility] Specimen Blood, Arterial Narrative Performed At FiO2 50% temp 36.4 [facility] FiO2 50% temp 36.4 FiO2 50% temp 36.4 FiO2 50% temp 36.4 FiO2 50% temp 36.[address] [facility] Phone Number [address] [address] [place] Sodium Na-Stat Lab (07/07/2020 4:57 PM TRANSMISSION AND COORDINATION ENGINEER) Pathologist Sig nature Sodium 142 136 - 145 meq/L [facility] Specimen Blood, Arterial Narrative Performed At FiO2 50% temp 36.4 [facility] FiO2 50% temp 36.4 FiO2 50% temp 36.4 FiO2 50% temp 36.4 FiO2 50% temp 36.4 Performing Organization Address City/[facility] Phone Number [address] [address] CENTER Glucose-Stat Lab (07/07/2020 4:57 PM TRANSMISSION AND COORDINATION ENGINEER) Pathologist Sig nature Glucose 125 (H) 70 - 110 mg/dL [facility] Specimen Blood, Arterial Narrative Performed At FiO2 50% temp 36.4 [facility] FiO2 50% temp 36.4 FiO2 50% temp 36.4 FiO2 50% temp 36.4 FiO2 50% temp 36.4 Performing Organization Address City/[facility] Phone Number [address] [address] C[place] HGB/HCT (H&H)-Stat Lab (07/07/2020 4:57 PM TRANSMISSION AND COORDINATION ENGINEER) Pathologist Sig nature Hemoglobin 8.3 (L) 12.0 - 15.0 GM/DL [facility] Hematocrit 24.0 (L) 36.0 - 45.0 % [facility] Specimen Blood, Arterial Narrative Performed At FiO2 50% temp 36.4 [facility] FiO2 50% temp 36.4 FiO2 50% temp 36.4 FiO2 50% temp 36.4 FiO2 50% temp 36.[address] [facility] Phone Number [facility] [address] [place] [address] [place] Blood gas, arterial (07/07/2020 4:57 PM TRANSMISSION AND COORDINATION ENGINEER) Pathologist Sig nature pH, Arterial 7.21 (L) 7.35 - 7.45 [facility] pCO2, Arterial 52 (H) 35 - 45 mm Hg [facility] pO2, Arterial 193 (H) 80 - 90 mm Hg [facility] O2 Sat, Arterial 99.0 (H) 96.0 - 97.0 % [facility] HCO3, Arterial 20 (L) 21 - 29 mmol/L [facility] Base Excess, Arterial -7.2 (L) -2.0 - 3.0 [facility] mmol/L [facility] Patient Temperature 37.0 [facility] FIO2 100.0 [facility] Specimen Blood, Arterial Narrative Performed At FiO2 50% temp 36.4 [facility] FiO2 50% temp 36.4 FiO2 50% temp 36.4 FiO2 50% temp 36.4 FiO2 50% temp 36.4 Performing Organization Address City/[facility] Phone Number [facility] [address] [place] [address] CENTER Potassium (07/07/2020 12:37 PM TRANSMISSION AND COORDINATION ENGINEER) Pathologist Sig nature Potassium 5.6 (H)Comment: 3.5 - 5.1 meq/L [facility] Specimen slightly [facility] hemolyzed CENTER Specimen Blood Narrative Performed At Director Park ID - CARLOS M [facility] Performing Organization Address [facility] Phone Number [facility] [address] [place] [address] [place] Urinalysis Microscopic Only (07/07/2020 12:31 PM TRANSMISSION AND COORDINATION ENGINEER) Pathologist Sig nature RBC, UA 6 /HPF [facility] WBC, UA 69 /HPF [facility] Bacteria, UA Many [facility] Mucus Few [facility] Squam Epithel, UA 5 /HPF [facility] Amorphous Crystals Rare [facility] Specimen Urine Narrative Performed At Director Park ID - tech [facility] Performing Organization Address City/[facility]/Zipcode Phone Number [address] [address] [place] Urinalysis with Microscopic If Indicated (07/07/2020 12:31 PM TRANSMISSION AND COORDINATION ENGINEER) Color, UA Yellow [facility] Clarity, UA Cloudy [facility] Specific [place], 1.017 1.001 - 1.035 [facility] pH, UA 6.0 5.0 - 8.0 [facility] Protein, UA 600 mg/dL (A) Negative [facility] Glucose, UA 100 mg/dL (A) Negative [facility] Ketones, UA Negative Negative [facility] Bilirubin, UA Negative Negative [facility] Blood, UA Moderate (A) Negative [facility] Nitrite, UA Positive (A) Negative [facility] Leukocytes, UA Small (A) Negative [facility] Urobilinogen, UA 0.2 0.2 - 1.0 mg/dL [facility] Specimen Source [facility] Specimen Urine Narrative Performed At Director Park ID - [auto] [facility] Performing Organization Address City/[facility]/Zipcode Phone Number [address] [address] CENTER ABORH, manual (07/07/2020 5:54 AM TRANSMISSION AND COORDINATION ENGINEER) Pathologist Sig nature Rh Factor POS [facility] A[facility] Grouping B [facility] Specimen Blood Performing Organization Address City/[facility]/Zipcode Phone Number [address] [address] Type and screen, automated (07/07/2020 5:25 AM TRANSMISSION AND COORDINATION ENGINEER) Pathologist Sig nature ABO/RH AUTOMATED B POSITIVE [facility] Ab Scrn NEGATIVE [facility] Specimen Blood Performing Organization Address City/[facility] Phone Number [address] [address] PT/aPTT (07/07/2020 5:25 AM TRANSMISSION AND COORDINATION ENGINEER) Pathologist Sig nature Protime 14.0 11.9 - 14.2 seconds [facility] INR 1.12 <=5.90 [facility] PTT 27.8 22.5 - 36.0 seconds [facility] Specimen Blood Narrative Performed At Effective 11/12/2018: PT Reference Range [facility] Change New: 11.9-14.2 Previous: 11.7-14.7 RECOMMENDED COUMADIN/WARFARIN INR THERAPY RANGES STANDARD DOSE: 2.0-3.0 Includes: PROPHYLAXIS for venous thrombosis, systemic embolization; TREATMENT for venous thrombosis and/or pulmonary embolus. HIGH RISK: Target INR is 2.5-3.5 for patients wiht mechanical heart valves. Performing Organization Address City/State/Zipcode Phone Number [facility] [address] [place], [place] [phone] [place] Hepatic function panel (07/07/2020 5:25 AM TRANSMISSION AND COORDINATION ENGINEER) Pathologist Sig nature Protein, Total 5.9 (L) 6.0 - 8.3 gm/dL [facility] Albumin 2.9 (L) 3.5 - 5.0 g/dL [facility] Total Bilirubin 0.6 0.2 - 1.2 mg/dL [facility] Bilirubin, Direct 0.3 0.1 - 0.5 mg/dL [facility] Alkaline Phosphatase 80 40 - 150 U/L [facility] AST 19 5 - 34 U/L [facility] ALT 17 6 - 55 U/L [facility] Specimen Blood Narrative Performed At Director Park ID - CARLOS Shaver [facility] Performing Organization Address City/State/Zipcode Phone Number [facility] [address] [place], [place] [phone] CENTER after 07/12/2019 Insurance Payer Benefit Plan Subscriber ID Effective Phone Address Typ e / Group Dates MEDICARE MEDICARE PART [id number] 2000-Prese Medicare A nt BLUE BCBS FED [id number] 2000-Prese [phone] [address] PPO CROSS/BLUE nt [id number] [place] [address] Advance Directives For more information, please contact: [phone] Code Status Date Activated Date Inactivated Comments Full Code 07/06/2020 11:08 PM This code status was determined by: Patient
--- OUTSIDE RECORDS SUMMARY | 2020-07-12 20:10 | XMS REPORT | Summary of Care ---
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 angina pectoris (Primary Dx); Cardiology- Mnig Santacruz MD Essential hypertension; [address] [place] [address] Dyslipidemia; Drive, [address] W[place] (dyspnea on exertion); [place], [place] 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, with long-term current use of insulin [id number] Allergies No Known Allergiesdocumented as of this encounter (statuses as of 06/28/2020) Medications Medication Sig Dispensed Refills Start Date [...] as of this encounter (statuses as of 06/28/2020) Active Problems No known active problemsdocumented as of this encounter (statuses as of 06/28/2020) Immunizations Name Administration Dates Next Due Influenza High Dose 03/17/2020 documented as of this encounter Social History Tobacco Use Types Packs/Day Years Used Date Current Every Day Smoker Smokeless Tobacco: Current User Sex Assigned at Date Recorded Not on file documented as of this encounter Last Filed Vital Signs Vital Sign Reading Time Taken Comments Blood Pressure 143/59 06/24/2020 10:44 AM SENIOR SOFTWARE QA ENGINEER Pulse 72 06/24/2020 10:40 AM SENIOR SOFTWARE QA ENGINEER Temperature - - Respiratory Rate 19 06/24/2020 10:40 AM SENIOR SOFTWARE QA ENGINEER Oxygen Saturation 96% 06/24/2020 10:40 AM SENIOR SOFTWARE QA ENGINEER Inhaled Oxygen Concentration - - Weight 55.7 kg (122 lb 14.4 oz) 06/24/2020 10:40 AM SENIOR SOFTWARE QA ENGINEER Height 154.9 cm (5' 1") 06/24/2020 10:40 AM SENIOR SOFTWARE QA ENGINEER Body Mass Index 23.22 06/24/2020 10:40 AM SENIOR SOFTWARE QA ENGINEER documented in this encounter Progress Notes Urbano Lugo MD - 06/24/2020 10:00 AM CST [facility] Cardiology Consult Note Patient: Petty Ferrer Date of : 1930 Date of service: 06/24/2020 Primary Care Physician: None CHIEF COMPLAINT: Chief Complaint Patient presents with New Patient Establish Care Ekg Done today in Office HISTORY OF PRESENT ILLNESS: Petty Ferrer is a 89 year old female presented to the clinic for establish care for CAD History from patient/ahfofaoc-bz-nul Patient seen and examined in the room. Pertinent cardiac related history reviewed from chart Risk factors include age, CAD, ongoing tobacco abuse, hypertension, dyslipidemia History of shortness of breath gradually worsening many years ago subsequent to which and saw Dr. Obrien in [place], stress test was done which was reported to be abnormal hence underwent coronary artery intervention at that time. 3 years later she had a repeat stress test which was still noted to beabnormal underwent a coronary artery intervention. Since then she has been feeling well on the whole. WILHELM NYHA class II noted. Last seen pvc monitor in [facility]. She is able to do ADLs [...] file Gets together: Not on file Attends hinduism service: Not on file Active member of [...] NTBNP ASSESSMENT/PLAN 1. 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 Essential hypertension [...] aspirin 81 daily. DC Plavix by her pvc monitor in [facility] HTN: Stable/controlled. Currently on ramipril 5 [...] feel free to call our office at [phone]. I would be happy to be of further assistance for Petty Ferrer wellbeing. Lee Lugo MD Milk And Cream Grader, Division of Cardiology [facility] Addendum Records from pvc monitor Dr. Staton reviewed. Echocardiogram dated 02/18/2020 shows presence of preserved LV systolic function normal LV thickness no regional wall motion changes. Normal RV function. Borderline left atrial enlargement no hemodynamically significant valve disease noted. Echocardiogram dated 07/21/2018 shows preserved LV solid function impaired diastolic dysfunction mildly dilated left atrium, no significant valve normalities. Echocardiogram dated 06/12/2017 shows echo within normal limits. Echo dated 04/30/2016 shows low normal LV systolic function. Borderline left atrial lodgment. Grossly normal valves. Echo dated 02/2015 shows preserved LV solid function no regional wall motion changes. Rest of the echo within acceptable limits. 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 Similar to our EKG done. Lee Lugo MD Milk And Cream Grader, Division of Cardiology [facility] documented in this encounter Miscellaneous Notes Addendum Note - Rona Frederick MA - 06/24/2020 10:00 AM SENIOR SOFTWARE QA ENGINEER Addended by: RONA FREDERICK on: 06/24/2020 04:20 PM Modules accepted: Orders OR SOFTWARE QA ENGINEER documented in this encounter Plan of Treatment Date Type Specialty Care Team Description 08/30/2020 Office Visit Cardiology Urbano Lugo MD [address] [facility] [place] [phone] Health Maintenance Due Date Last Done Comments [...] Completed 03/17/2020 documented as of this encounter Procedures Procedure Name Priority Date/Time Associated Diagnosis Comme nts RI ELECTROCARDIOGRAM, Routine 06/24/2020 10:50 AM Coronary art kari disease COMPLETE SENIOR SOFTWARE QA ENGINEER involving allakaket coronary artery of allakaket heart without angina pectoris documented in this encounter Results Not on filedocumented in this encounter Visit Diagnoses Diagnosis Coronary artery disease involving allakaket coronary artery of [place]ak[place] heart without angina pectoris - Primary Essential hypertension Unspecified essential hypertension Dyslipidemia Other and unspecified hyperlipidemia WILHELM (dyspnea on exertion) Other dyspnea and respiratory abnormalit y Type 2 diabetes mellitus with other spec ified complication, with long-term current use of insulin documented in this encounter Insurance Payer Benefit Plan Subscriber ID Effective Dates Phone Address Type / Group BCBS OF BCBS FED [id number] 2000-Fidelina [phone] [address]/POS [place] SELECT t 7 [id number] [place] [address] documented as of this encounter
--- OUTSIDE RECORDS SUMMARY | 2020-07-12 20:10 | XMS REPORT | Summary of Care ---
:1930 Author Organization [facility] Address [address] [place] [address] Care Team Providers Name Role Phone Urbano Lugo MD Primary Care Provider Reason for Visit Reason Comments New Patient Establish Care Ekg Done today in Office Encounter Details Date Type Department Care Team Description 06/24/2020 Office Visit [facility] Urbano Lugo Coronary aundrea ry disease involving chilkoot coronary artery of chilkoot heart without angina pectoris (Primary Dx); Cardiology- Ming Santacruz MD [facility] [address] Dyslipidemia; Drive, [address] WILHE[place] (dyspnea on exertion); [place], [place] Type 2 diabetes mellitus with other [...] encounter (statuses as of 06/24/2020) Active Problems Not on filedocumented as of this encounter (statuses as of [...] Comments Blood Pressure 143/59 06/24/2020 10:44 AM MULTI SLIDE MACHINE TENDER Pulse 72 06/24/2020 10:40 AM MULTI SLIDE MACHINE TENDER Temperature - - Respiratory Rate 19 06/24/2020 10:40 AM MULTI SLIDE MACHINE TENDER Oxygen Saturation 96% 06/24/2020 10:40 AM MULTI SLIDE MACHINE TENDER Inhaled Oxygen Concentration - - Weight 55.7 kg (122 lb 14.4 oz) 06/24/2020 10:40 AM MULTI SLIDE MACHINE TENDER Height 154.9 cm (5' 1") 06/24/2020 10:40 AM MULTI SLIDE MACHINE TENDER Body Mass Index 23.22 06/24/2020 10:40 AM MULTI SLIDE MACHINE TENDER documented in this encounter Progress Notes Urbano Lugo MD - 06/24/2020 10:00 AM CST [facility] Cardiology Consult Note Patient: Petty Ferrer Date of : 1930 Date of service: 06/24/2020 Primary Care Physician: None CHIEF COMPLAINT: Chief Complaint Patient presents with New Patient Establish Care Ekg Done today in Office HISTORY OF PRESENT ILLNESS: Petty Ferrer is a 89 year old female presented to the clinic for establish care for CAD History from patient/oopvaebn-jq-xln Patient seen and examined in the room. Pertinent cardiac related history reviewed from chart Risk factors include age, CAD, ongoing tobacco abuse, hypertension, dyslipidemia History of shortness of breath gradually worsening many years ago subsequent to which and saw Dr. Obrien in [place], stress test was done which was reported to be abnormal hence underwent coronary artery intervention at that time. 3 years later she had a repeat stress test which was still noted to beabnormal underwent a coronary artery intervention. Since then she has been feeling well on the whole. WILHELM NYHA class II noted. Last seen medical logistics specialist in [facility]. She is able to do ADLs by [...] file Gets together: Not on file Attends caodaism service: Not on file Active member of [...] NTBNP ASSESSMENT/PLAN 1. Coronary artery disease involving chilkoot coronary artery of chilkoot heart without angina pectoris 2. Essential hypertension [...] aspirin 81 daily. DC Plavix by her medical logistics specialist in [facility] HTN: Stable/controlled. Currently on ramipril 5 mg [...] feel free to call our office at [phone]. I would be happy to be of further assistance for Petty Ferrer wellbeing. Lee Lugo MD Supervisor [employer], Division of Cardiology [facility] documented in this encounter Plan of Treatment Date Type Specialty Care Team Description 06/30/2020 Imm/Inj Visit [facility] WiliIdris roth MD [address] [place] [address] Preventive Medicine Nurse, Adc Pob Immunization 08/30/2020 Office Visit Cardiology Urbano Lugo MD [address] [place] [address] [place] [phone] Health Maintenance Due Date Last Done Comments DTaP,Tdap,and Td Vaccines (1 - Tdap) 09/15/1949 Zoster Recombinant Vaccine (SHINGRIX) (1 of 2) 1982 Medicare Wellness Visit 1997 Osteoporosis Screening 1997 PNEUMOCOCCAL VACCINES 65+ (1 of 1 - PPSV23) 1997 Depression Screening 06/24/2021 06/24/2020 INFLUENZA VACCINE Completed 03/17/2020 documented as of this encounter Results Not on filedocumented in this encounter Visit Diagnoses Diagnosis Coronary artery disease involving chilkoot coronary artery of chilkoot heart without angina pectoris - Primary Essential hypertension Unspecified essential hypertension Dyslipidemia Other and unspecified hyperlipidemia WILHELM (dyspnea on exertion) Other dyspnea and respiratory abnormalit y Type 2 diabetes mellitus with other spec ified complication, with long-term current use of insulin documented in this encounter Insurance Payer Benefit Plan Subscriber ID Effective Dates Phone Address Type / Group BCBS OF BCBS FED [id number] 2000-Fidelina [phone] [address]POS [place] SELECT t [id number] [place] [address] documented as of this encounter
--- OUTSIDE RECORDS SUMMARY | 2020-07-12 20:10 | XMS REPORT | Summary of Care ---
:1930 Author Organization [facility] Address [address] [place] [id number] Care Team Providers Name Role Phone Urbano Lugo MD Primary Care Provider Reason for Visit Reason Comments New Patient Establish Care Ekg Done today in Office Encounter Details Date Type Department Care Team Description 06/24/2020 Office Visit [facility] Urbano Lugo Coronary aundrea ry disease involving [place] coronary artery of [place] heart without angina pectoris (Primary Dx); Cardiology- Ming Santacruz MD Essential [facility]; [facility] [address] Dyslipidemia; Drive, [address] [place] (dyspnea on exertion); [place], [place] Type 2 diabetes mellitus with other [...] Comments Blood Pressure 143/59 06/24/2020 10:44 AM [employer] Pulse 72 06/24/2020 10:40 AM [employer] Temperature - - Respiratory Rate 19 06/24/2020 10:40 AM [employer]ER Oxygen Saturation 96% 06/24/2020 10:40 AM [employer]ER Inhaled Oxygen Concentration - - Weight 55.7 kg (122 lb 14.4 oz) 06/24/2020 10:40 AM [employer] SALV[employer]ER Height 154.9 cm (5' 1") 06/24/2020 10:40 AM [employer] SALV[employer]ER Body Mass Index 23.22 06/24/2020 10:40 AM [employer]S SALVAGER documented in this encounter Progress Notes Urbano Lugo MD - 06/24/2020 10:00 AM CST [facility] Cardiology Consult Note Patient: Petty Ferrer Date of : 1930 Date of service: 06/24/2020 Primary Care Physician: None CHIEF COMPLAINT: Chief Complaint Patient presents with New Patient Establish Care Ekg Done today in Office HISTORY OF PRESENT ILLNESS: Petty Ferrer is a 89 year old female presented to the clinic for establish care for CAD History from patient/ovugczol-yk-ogm Patient seen and examined in the room. Pertinent cardiac related history reviewed from chart Risk factors include age, CAD, ongoing tobacco abuse, hypertension, dyslipidemia History of shortness of breath gradually worsening many years ago subsequent to which and saw Dr. Obrien in [place], stress test was done which was reported to be abnormal hence underwent coronary artery intervention at that time. 3 years later she had a repeat stress test which was still noted to beabnormal underwent a coronary artery intervention. Since then she has been feeling well on the whole. WILHELM NYHA class II noted. Last seen slitter creaser slotter operator in [facility]. She is able to do ADLs by [...] file Gets together: Not on file Attends adventist service: Not on file Active member of [...] NTBNP ASSESSMENT/PLAN 1. Coronary artery disease involving [place] coronary artery of [place] heart without angina pectoris 2. Essential hypertension [...] aspirin 81 daily. DC Plavix by her slitter creaser slotter operator in [facility] HTN: Stable/controlled. Currently on ramipril 5 mg [...] feel free to call our office at [phone]. I would be happy to be of further assistance for Petty Ferrer wellbeing. Lee Lugo MD Apartment Maintenance Manager, Division of Cardiology [facility] documented in this encounter Plan of Treatment Date Type Specialty Care Team Description 06/30/2020 Imm/Inj Visit [facility] WiliIdris roth MD [address] [place] [address] Preventive Medicine Nurse, Adc Pob Immunization 08/30/2020 Office Visit Cardiology Urbano Lugo MD [address] [place] [address] [place] [address] [phone] Health Maintenance Due Date Last [...] Visit Diagnoses Diagnosis Coronary artery disease involving [place] coronary artery of [place] heart without angina pectoris - Primary Essential hypertension Unspecified essential hypertension Dyslipidemia Other and unspecified hyperlipidemia WILHELM (dyspnea on exertion) Other dyspnea and respiratory abnormalit y Type 2 diabetes mellitus with other spec ified complication, with long-term current use of insulin documented in this encounter Insurance Payer Benefit Plan Subscriber ID Effective Dates Phone Address Type / Group [employer] [id number] [address] [phone] [place] [employer] [id number] [place] [address] documented as of this encounter
--- OUTSIDE RECORDS SUMMARY | 2020-07-12 20:10 | XMS REPORT | Summary of Care ---
:1930 Author Organization [facility] - Health Address [address] [place] [address] Care Team Providers Name Role Phone Urbano Lugo MD Primary Care Provider Encounter Details Date Type Department Care Team Description 06/24/2020 Orders Only [facility] Doctor Unassigned, No [address] [facility] Name [place] [id number] [place] [address] Allergies Not on Filedocumented as of this encounter (statuses as of 06/24/2020) Medications Not on filedocumented as of this encounter (statuses as of 06/24/2020) Active Problems Not on filedocumented as of this encounter (statuses as of 06/24/2020) Social History Tobacco Use Types Packs/Day Years Used Date Never Assessed Sex Assigned at Date Recorded Not on file documented as of this encounter Last Filed Vital Signs Not on filedocumented in this encounter Plan of Treatment Health Maintenance Due Date Last Done Comments Depression Screening 1944 DTaP,Tdap,and Td Vaccines (1 - Tdap) 09/15/1951 Zoster Recombinant Vaccine (SHINGRIX) (1 of 2) 1982 Medicare Wellness Visit 1997 Osteoporosis Screening 1997 PNEUMOCOCCAL VACCINES 65+ (1 of 1 - PPSV23) 1997 INFLUENZA VACCINE (#1) 2020 documented as of this encounter Procedures Procedure Name Priority Date/Time Associated Diagnosis Comme nts CONSENT/REFUSAL FOR Routine 06/24/2020 10:07 AM ELECTRONIC GAME DEVELOPER DIAGNOSIS AND TREATMENT documented in this encounter Results Not on filedocumented in this encounter Insurance Payer Benefit Plan Subscriber ID Effective Dates Phone Address Type / Group [employer] [id number] 1998[address] [phone] [place] [id number] [place] [address] documented as of this encounter
--- OUTSIDE RECORDS SUMMARY | 2020-07-12 20:14 | XMS REPORT | Continuity of Care Document ---
:1930 Author Organization [facility] t Address [address] [place] [address] Care Team Providers Name Role Phone Pcp Primary Care Physician Unavailable Heather TORREZ Attending Clinician Jesús Bloom MD Attending Clinician Luiz Vasques MD Attending Clinician Michael Lebron MD Attending Clinician Ruddy Gomes MD Attending Clinician HEATHER Attending Clinician Unavailable Parish TORREZ, K.H. Attending Clinician HEATHER Admitting Clinician Unavailable Payers Payer Name Policy Type Policy Effective Date Expiration Date Sour ce Number MEDICAREMEDICARE PART [id number] [address] [facility] [id number] 2000-P 00:00:00 - Medical resentMedicare [place] BLUE CROSS/BLUE [id number] [address] Usha kes SHIELDBCBS 00:00:00 - Medical [id number] 2000-P Ce nter [id number], [place] [address]YEU Problems Condition Condition Condition Status Onset Resolution Last Treating Co mments Source Name Details Category Date Date Treatment Clinician Date Femoral Femoral Disease Active [facility]: [facility] 00 Center Allergies, Adverse Reactions, Alerts This patient has no known allergies or adverse reactions. Social History Social Habit Start Date Stop Date Quantity Comments Source Sex Assigned At [facility] Medications Ordered Filled Start Stop Current Ordering Indication Dosage Frequency Signature Comments Components Source Medication Medication Date Date Medication? Clinician (SIG) Name Name trang Yes 15mg QD Take [address] [facility] (ACTOS) 07-12 by mouth [facility] - 15 MG 19:14: daily. Medical tablet 02 [place] aspirin 81 Yes 81mg QD Take [address] MG EC 07-12 by mouth [facility] - tablet 19:14: daily. Medical 02 [place] oxybutynin Yes 5mg QD Take [address] (DITROPAN-X 07-12 by mouth [facility] - L) 5 MG 24 19:14: daily. Medic al hr tablet 02 [place] PARoxetine Yes 20mg QD Take [address] (PAXIL) 20 07-12 by mouth [facility] - MG tablet 19:14: every Medical 02 morning. [place] cetirizine Yes 10mg QD Take [address] (ZyrTEC) 10 07-12 by mouth Luke [facility] - MG tablet 19:14: daily. Medica l 02 [place] ramipriL Yes 5mg QD Take [address] [address] (ALTACE) 5 07-12 by mouth [facility] - MG capsule 19:14: daily. Medic al 02 [place] ferrous 2021- Yes 325mg QD Take [address] sulfate 325 07-12 tablet [facility] - (65 FE) MG 00:00: 23:59 (325 mg Med ical tablet 00 :00 total) by Center mouth daily. lidocaine 2020- Yes 1{patch Q24H Place [address] (LIDODERM) 07-12 } patch onto Usha kes - 5 % patch 00:00: 23:59 the skin Med ical 00 :00 daily for Center 30 days Remove & Discard patch within 12 hours or as directed by . heparin Yes 5000U Inject 1 [facility] injection 1-25 mL (5,000 [facility] - 5,000 00:00: Units Medical units/mL 00 total) [place] subcutane usly every 8 (eight) hours. senna 2021- Yes 8.6mg QD Take [address] (SENOKOT) 07-11 tablet [facility] - 8.6 mg 00:00: 23:59 (8.6 mg Medical tablet 00 :00 total) by Center mouth nightly. acetaminoph 2021- Yes 650mg Take [address] en 07-11 tablets kes - (TYLENOL) 00:00: 23:59 (650 mg Medi laisha 325 MG 00 :00 total) by Center tablet mouth every 4 (four) hours as needed for up to 360 days. bisacodyL 2020- Yes 10mg Place [address] [facility] (DULCOLAX) 07-11 suppositor kes - 10 mg 00:00: 23:59 y (10 mg Medical suppository 00 :00 total) Center rectally daily as needed for up to 10 days. HYDROcodone 2020- Yes 1{tbl} Take [address] -acetaminop 07-11 tablet by pool mayra (NORCO 00:00: 23:59 mouth 3 Med ical 5-325) 00 :00 (three) Center 5-325 mg times per tablet daily as needed for up to 10 days. Max Daily Amount: 3 tablets polyethylen 2020- Yes 17g Take [address] e glycol 07-11 by mouth [facility] - (GLYCOLAX) 00:00: 23:59 daily as Me dical 17 gram 00 :00 needed Center packet (Constipat ion) for up to 3 days. Vital Signs Vital Name Observation Time Observation Value Comments Source Systolic blood 2020-07-12 16:00:00 118 mm[Hg] [facility] Diastolic blood 2020-07-12 16:00:00 64 mm[Hg] [facility] S [facility] Heart rate 2020-07-12 16:00:00 80 /min [facility] L [facility] Body temperature 2020-07-12 16:00:00 36.28 Patricia [facility] Respiratory rate 2020-07-12 16:00:00 20 /min [facility] Oxygen saturation in 2020-07-12 16:00:00 99 /min [facility] - Arterial blood by Medical Ce nter Pulse oximetry Body weight 2020-07-12 06:00:00 63.05 kg [facility] Procedures Procedure Date / Time Performing Clinician Source Performed CT BRAIN WITHOUT IV 2020-07-12 17:30:00 Eagle Guillaume [facility] XR HIP 2 VIEWS LEFT 2020-07-12 14:54:00 Eagle Guillaume [facility] SARS-COV2/RT-PCR ([facility] & 2020-07-12 13:35:00 MerleDmitri [facility] POCT-GLUCOSE METER 2020-07-12 12:28:00 Dmitri Bloom [facility] POCT-GLUCOSE METER 2020-07-12 08:16:00 Merle [facility] BASIC METABOLIC PANEL (7) 2020-07-12 05:30:00 Eagle Guillaume [facility] PHOSPHORUS 2020-07-12 05:30:00 Tracey Marquez [facility] CBC (HEMOGRAM ONLY) 2020-07-12 05:30:00 Dmitri Bloom [facility] MAGNESIUM 2020-07-12 05:30:00 Merle Dmitridonavan Espinosa [facility] POCT-GLUCOSE METER 2020-07-11 21:10:00 [facility] POCT-GLUCOSE METER 2020-07-11 17:53:00 [facility] POCT-GLUCOSE METER 2020-07-11 12:10:00 [facility] POCT-GLUCOSE METER 2020-07-11 08:06:00 [facility] BASIC METABOLIC PANEL (7) 2020-07-11 06:08:00 Eagle Guillaume [facility] PHOSPHORUS 2020-07-11 06:08:00 Tracey Marquez [facility] CBC (HEMOGRAM ONLY) 2020-07-11 06:08:00 Merle [facility] MAGNESIUM 2020-07-11 06:08:00 Merle [facility] POCT-GLUCOSE METER 2020-07-10 21:48:00 [facility] POCT-GLUCOSE METER 2020-07-10 12:43:00 [facility] POCT-GLUCOSE METER 2020-07-10 07:51:00 [facility] CBC (HEMOGRAM ONLY) 2020-07-10 04:58:00 Peyman Gomes [facility] BASIC METABOLIC PANEL (7) 2020-07-10 04:57:00 Eagle Guillaume [facility] PHOSPHORUS 2020-07-10 04:57:[facility] 2020-07-09 21:21:00 [facility] POCT-GLUCOSE METER 2020-07-09 18:22:00 [facility] BLOOD GAS, VENOUS 2020-07-09 13:44:[facility] PO[facility] 2020-07-09 12:28:00 [facility] URIC ACID 2020-07-09 08:47:00 [facility] LACTATE DEHYDROGENASE 2020-07-09 08:47:00 [facility] POCT-GLUCOSE METER 2020-07-09 08:04:00 [facility] BASIC METABOLIC PANEL (7) 2020-07-09 05:50:00 Eagle Guillaume [facility] PROTEIN ELECTROPHORESIS, 2020-07-09 04:46:[address] [facility] PTH, INTACT 2020-07-09 04:46:00 [facility] CBC W/PLT COUNT & AUTO 2020-07-09 04:46:[address] [facility] POCT-GLUCOSE METER 2020-07-08 21:11:00 Dmitri Bloom [facility] HEMOGLOBIN A1C 2020-07-08 17:47:00 [facility], [facility] RPR 2020-07-08 17:47:00 [facility] IMMUNO[facility]ATION 2020-07-08 17:47:00 Shanaambrocio [facility] - ELECTROPHORESIS (MICHAELA) [facility] nter PROTEIN, RANDOM URINE 2020-07-08 13:25:00 Eagle Guillaume [facility] BASIC METABOLIC PANEL (7) 2020-07-08 13:25:00 Eagle Guillaume [facility] CREATININE, RANDOM URINE 2020-07-08 13:25:00 Shanaambrocio [facility] URINE PROTEIN 2020-07-08 13:25:00 Greg [facility] - ELECTROPHORESIS, RANDOM [facility] URINE IMMUNOFIXATION, 2020-07-08 13:25:[address] Val[address] [facility] POTASSIUM, RANDOM URINE 2020-07-08 13:25:00 Yosef [facility] SODIUM, RANDOM URINE 2020-07-08 13:25:00 [facility] CHLORIDE, RANDOM URINE 2020-07-08 13:25:[address] [facility] PHOSPHORUS 2020-07-08 13:25:00 Shanahunaizi, [facility] URINE CULTURE 2020-07-08 11:39:00 Megan Aguilar [facility] URINALYSIS W/ REFLEX URINE 2020-07-08 11:39:00 Megan Aguilar [facility] IRON, TIBC, % SAT. 2020-07-08 10:40:00 Megan Aguilar [facility] (WITHOUT FERRITIN) [facility] 2020-07-08 10:40:00 [facility] B[facility] AND FOLATE 2020-07-08 10:40:00 [facility] HIV-1 AG W/HIV-1&2 2020-07-08 10:40:00 Shanasharla [facility] HEPATITIS C ANTIBODY 2020-07-08 10:40:00 Greg [facility] CBC W/PLT COUNT & AUTO 2020-07-08 10:40:00 [facility] ECG 12-LEAD 2020-07-08 08:43:32 Megan Aguilar [facility] BASIC METABOLIC PANEL (7) 2020-07-08 06:02:[address] [facility] CREATINE KINASE (CK) 2020-07-08 06:02:00 Megan Aguilar [facility] RETICULOCYTE COUNT 2020-07-08 06:02:00 Megan Aguilar [facility] CBC W/PLT COUNT & AUTO 2020-07-08 06:02:00 Dmitri Bloom [facility] US RENAL COMPLETE 2020-07-08 04:30:00 Mireya [facility] POCT-GLUCOSE METER 2020-07-07 21:24:00 Dmitri Bloom [facility] XR PELVIS 1 OR 2 VIEWS 2020-07-07 20:48:00 Mireya [facility] XR CHEST 1 VIEW 2020-07-07 20:48:00 Mireya [facility] s - PORTABLE/BEDSIDE [facility] CALCIUM, IONIZED 2020-07-07 16:57:09 Mireya [facility] BLOOD GAS, ARTERIAL 2020-07-07 16:57:04 Mireya [facility] SODIUM NA-STAT LAB 2020-07-07 16:57:04 Mireya [facility] POTASSIUM-STAT LAB 2020-07-07 16:57:04 Mireya [facility] GLUCOSE-STAT LAB 2020-07-07 16:57:04 Mireya [facility] HGB/HCT (H&H) - STAT LAB 2020-07-07 16:57:04 Peyman Gomes [facility] ARTHROPLASTY,HIP 2020-07-07 15:44:00 Mireya [facility] ECG 12-LEAD 2020-07-07 13:09:55 [facility] B12 AND FOLATE 2020-07-07 12:37:00 Merle [facility] POTASSIUM 2020-07-07 12:37:00 Merle [facility] URINALYSIS WITH 2020-07-07 12:31:00 Eagle Guillaume [facility] s - MICROSCOPIC IF INDICATED [facility] SODIUM, RANDOM URINE 2020-07-07 12:31:00 Eagle Guillaume [facility] CREATININE, RANDOM URINE 2020-07-07 12:31:00 Eagle Guillaume [facility] URINALYSIS MICROSCOPIC 2020-07-07 12:31:00 [facility] POCT-GLUCOSE METER 2020-07-07 11:31:00 [facility] POCT-[facility]SE METER 2020-07-07 10:26:00 MerleDmitri [facility] SARS-COV2/RT-PCR ([facility] & 2020-07-07 06:17:00 Peyman Gomes [facility] - REF LABS) [facility] ABORH, MANUAL 2020-07-07 05:54:00 Janay Gutierrez Kelle [facility] HEPATIC FUNCTION PANEL 2020-07-07 05:25:00 Heather [facility] BASIC METABOLIC PANEL (7) 2020-07-07 05:25:[address] [facility] MAGNESIUM 2020-07-07 05:25:00 [facility] PT/APTT 2020-07-07 05:25:00 [facility] TYPE AND SCREEN, AUTOMATED 2020-07-07 05:25:00 Love Romero [facility] CBC W/PLT COUNT & AUTO 2020-07-07 05:25:00 [facility] Raphael [facility] Plan of Care Planned Activity Planned Date Details Comments Source Future Scheduled 2020-06-[address] [facility] - Test 00:00:00 (12+) [code = [facility] DEPRESSION SCREENING (12+)] Future Scheduled 2020-02-16 INFLUENZA VACCINE (#1) C [facility] - Test 00:00:00 [code = INFLUENZA Medical Ce nter VACCINE (#1)] Future Scheduled 1997 P[facility]AL 65+ YRS [facility]00 (1 of 1 - [facility] [id number] PCV13) [code = PNEUMOCOCCAL 65+ YRS (1 of 1 - [id number] PCV13)] Future Scheduled 1937-09[birth year] DTAP/TDAP/TD [facility]INES [facility]00 (1 - Tdap) [code = Medical C enter DTAP/TDAP/TD VACCINES (1 - Tdap)] Encounters Start End Encounter Admission Attending Care Care Encounter Source Date/Time Date/Time Type Type Clinicians Facility Department ID 2020-06-24 2020-06-24 BASHIR Lehman [id number] 10:10:45 11:35:46 Visit Urbano Lai [id number] [place] [id number] Nigel [id number] nal 059 Building Results Test Description Test Time Test Comments Results Result Comments Source SARS-CoV2/RT-PCR (Asymptomatic ONLY) 2020-07-12 17:42:00 Test Item Value Reference Range Interpretation Comme nts SARS-COV2/RT-PCR (test code = Negative Not Detected, 90567-5) Negative, See external report for linked test SARS-COV-2 PERFORMING LAB [facility] MELISSA (test code = 80245-5) SILVER (test code = SILVER) Negative result for this test determines that SARS-CoV-2 RNA was not present in the [...] of the Act. Fact Sheet for Healthcare Providers:https://www.[employer]. com/sites/default/files/produ ct/documents/Fact_Sheet_HC_Pr mqkjnmi_Rxsu_JYEY-GlQ-6.pdf Fact Sheet for Healthcare Patients:https://www.Identyx.Vennli om/sites/default/files/produc t/documents/Fact_Sheet_Akash vg_Hvfy_ATGP-MpF-6.pdf Performing Laboratory:[facility] [place] [address] [facility] ([facility] & REF LABS)2020-07-12 17:42:00 Test Item Value Reference Range Interpretation Comments SARS-COV2/RT-PCR (test Negative Not Detected, Negative, code = 9765123) See external report for linked test SARS-COV-2 PERFORMING LAB [facility] MELISSA (test code = 1701510) Negative result for this test determines that SARS-CoV-2 RNA was not present in the specimen above the Limit of Detection (LOD). However, Negative results do not preclude SARS-CoV-2 infection and should not be used as the sole basis for treatment or patient management decisions. Negative results mustbe combined with clinical observations, patient history, and epidemiological information. A false negative result may occur if a specimen is improperly collected, transported or handled. A false negative result should be considered if patient's recent exposures or clinical presentation indicate that COVID-19 (SARS-CoV-2) is likely and diagnostic tests for other causes of illness are negative. Re-testing should be considered in cases of suspected false negatives.The limit of detection for this assay is 800 copies/mL.This SARS CoV-2 test is a real-time RT-PCR test intended for the qualitative detection of nucleic acid from SARS-CoV-2 in a nasopharyngeal swab specimen collected from individuals susp ected of COVID-19 by their healthcare provider.This test has not been Food and Drug [...] is revoked under Section 564(g) of the Act.Fact Sheet for Healthcare Providers:https://www.[employer]/sites/default/files/product/documents/Fact_Shee g_PT_Sjdeqhuea_Xuhx_ASVR-NhG-9.pdfFact Sheet for Healthcare Patients:https://www.[employer]/sites/default/files/product/ documents/Jnnl_Lnjlw_Jrsletft_Gljq_MYEF-QuU-1.pdfPerforming Laboratory:[facility], [place] [address]VA, BRAIN, WITHOUT [id number] 17:34:00Fall, questionable head traumaUnlisted Reason for Exam - Click Yes and Enter Reason Below->No [facility] : 1930 Sex: FFINAL REPORT CT, BRAIN, WITHOUT CONTRAST INDICATION: Headache, post t raumatic TECHNIQUE: Noncontrast axial imaging was obtained from the vertex to the skull base. Axial images were reconstructed using a bone algorithm. DOSE REDUCTION: Dose modulation, iterative reconstruction, and/or weight-based adjustment of the mA/kV was utilized to reduce the radiation dose to as low as reasonably achievable. COMPARISON: CT 02/26/2007 FINDINGS: Intracranial: No intracranial hemorrhage or abnormal extra-axial collection. No evidence of acute territorial infarct. No mass effect. No hydrocephalus. Generalized cerebral atrophy with ex vacuo dilatation of the ventricular system proportionate to sulci. Scattered foci of hypoattenuation within the periventricular and subcortical whitematter are a nonspecific finding commonly attributed to chronic small vessel ischemic disease. Thesefindings have progressed since 2006. Osseous structures: No fracture. No suspicious lesion. Paranasal sinuses and mastoid air cells: No evidence of sinusitis. Mastoids are clear. Orbital contents: Globes are intact. IMPRESSION: No acute intracranial hemorrhage. If there is persistent clinical concern for intracranial pathology, MR examination is recommended for further characterization. Signed: Rema Santamaria Verified Date/Time: 07/12/2020 17:34:53 CT brain without IV [id number] 17:34:00Interface, External Ris In - 07/12/2020 5:[address], BRAIN, WITHOUT CONTRAST INDICATION: Headache, post traumatic TECHNIQUE: Noncontrast axial imaging was obtained from the vertex to the skull base. Axial images were reconstructed using a bone algorithm. DOSE REDUCTION: Dose modulation, iterative reconstruction, and/or weight-based adjustment of the mA/kV was utilized to reduce the radiation dose to as low as reasonably achievable. COMPARISON: CT 02/26/2007 FINDINGS: Intracranial: No intracranial hemorrhage or abnormal extra-axial collection. No evidence of acute territorial infarct. No mass effect. No hydrocephalus. Generalized cerebral atrophy with ex vacuodilatation of the ventricular system proportionate to sulci. Scattered foci of hypoattenuation within the periventricular and subcortical white matter are a nonspecific finding commonly attributed to chronic small vessel ischemic disease. These findings have progressed since 2006. Osseous structures: No fracture. No suspicious lesion. Paranasal sinuses and mastoid air cells: No evidence of sinusitis.Mastoids are clear. Orbital contents: Globes are intact. IMPRESSION: No acute intracranial hemorrhage. If there is persistent clinical concern for intracranial pathology, MR examination is recommended for further characterization. Signed: Rema Santamaria Verified Date/Time: 07/12/2020 17:34:53 [facility], 2-3 VIEWS, LEFT, TO INCL PELVIS WHEN [id number] 15:17:00Reason for exam:->Fall, s/p L hip arthroplasty, fell today just prior to discharge [facility] : 1930 Sex: FFINAL REPORT CLINICAL HISTORY: Fall, s/p L hip arthroplasty, fell tod ay just prior to discharge TECHNIQUE: 2 views of the left hip with AP pelvis. COMPARISON: Pelvis 07/07/2020 IMPRESSION: There is a left hip arthroplasty without evidence of fracture or dislocation. The bony pelvis otherwise appears intact. Signed: Juanjose King Verified Date/Time: 07/12/2020 15:17:49 Reading Location: [facility] Radiology Reading Room XR hip 2 views left 2020-07-12 15:17:00Interface, External Ris In - 07/12/2020 3:20 PM CSTFINAL REPORT CLINICAL HISTORY: Fall, s/p L hip arthroplasty, fell today just prior to discharge TECHNIQUE: 2 views of the lefthip with AP pelvis. COMPARISON: Pelvis 07/07/2020 IMPRESSION: There is a left hip arthroplasty without evidence of fracture or dislocation. The bony pelvis otherwise appears intact. Signed: Juanjose King Verified Date/Time: 07/12/2020 15:17:49 Reading Location: [facility] Radiology ReadingRoom [facility] [id number] 12:40:00 Test Item Value Reference Range Interpretation Comments POC-Glucose Meter (test 159 mg/dL 70-110 H : TE STED AT [facility] code = 1538) [address] [facility], 770 30: Aerospace Engineer/Techni carlos ID = [id number] for Berta Fontenot Lab Interpretation (test Abnormal code = 92496-4) [facility]SE [id number] 12:40:00 Test Item Value Reference Range Interpretation Comments POC-GLUCOSE METER 159 mg/dL 70-110 H : [facility] ([facility] (test code = [facility] Susanna [facility], 1538) [address]: Aerospace Engineer/Techni carlos ID = [id number] for An Berta jeffery POCT-GLUCOSE [id number] 08:29:00 Test Item Value Reference Range Interpretation Comments POC-GLUCOSE METER 128 mg/dL 70-110 H : [facility] ([facility]ER[facility] (test code = [facility], 1538) [address]: Aerospace Engineer/Techni carlos ID = [id number] for An Berta jeffery Basic Metabolic [id number] 07:08:00 Test Item Value Reference Range Interpretation Comments Sodium (test code = 140 meq/L 799-563 2814-2) Potassium (test code = 4.2 meq/L 3.5-5.1 2823-3) Chloride (test code = 110 meq/L 98-107 H 2075-0) CO2 (test code = 20 meq/L 22-29 L 2028-9) BUN (test code = 41 mg/dL 7-21 H 3094-0) Creatinine (test code 2.46 mg/dL 0.57-1.25 H = 2160-0) Glucose (test code = 128 mg/dL 70-105 H 2345-7) Calcium (test code = 7.6 mg/dL 8.4-10.2 L 79418-2) EGFR (test code = 19 mL/min/1.73 [place] [address]-6) NOT ACCURATE CREATININE CLEARANCE IN PREDICTING GLOMERULAR FILTRATION RATE . ESTIMATED GFR I S NOT APPLICABLE FOR DIALYSIS PATIENTS. SILVER (test code = SILVER) Aerospace Engineer ID - SM Lab Interpretation Abnormal (test code = 91969-3) [facility] METABOLIC [id number] 07:08:00 Test Item Value Reference Range Interpretation Comments SODIUM (BEAKER) 140 meq/L 136-145 (test code = 381) POTASSIUM (BEAKER) 4.2 meq/L 3.5-5.1 (test code = 379) CHLORIDE (BEAKER) 110 meq/L 98-107 H (test code = 382) CO2 (BEAKER) (test 20 meq/L 22-29 L code = 355) BLOOD UREA NITROGEN 41 mg/dL 7-21 H (BEAKER) (test code = 354) CREATININE (BEAKER) 2.46 mg/dL 0.57-1.25 H (test code = 358) GLUCOSE RANDOM 128 mg/dL 70-105 H (BEAKER) (test code = 652) CALCIUM (BEAKER) 7.6 mg/dL 8.4-10.2 L (test code = 697) EGFR (BEAKER) (test 19 mL/min/1.73 ESTIMA DAT GFR IS code = 1092) sq m NOT ACCURATE CREATININE CLEARANCE IN PREDICTING GLOMERULAR FILTRATION RATE . ESTIMATED GFR I S NOT APPLICABLE FOR DIALYSIS PATIEN TS. Aerospace Engineer ID - [id number] 07:07:00 Test Item Value Reference Range Interpretation Comments Magnesium (test code = 1.9 mg/dL 1.6-2.6 66376-1) SILVER (test code = SILVER) Aerospace Engineer ID - Lab Interpretation (test Normal code = 61567-1) [facility] Hospital[facility]osphorus2021-01-26 07:07:00 Test Item Value Reference Range Interpretation Comments Phosphorus (test code = 3.8 mg/dL 2.3-4.7 2777-1) SILVER (test code = SILVER) Aerospace Engineer ID - SM Lab Interpretation (test Normal code = 91166-2) [facility] [id number] 07:07:00 Test Item Value Reference Range Interpretation Comments MAGNESIUM (BEAKER) (test code = 1.9 mg/dL 1.6-2.6 627) Aerospace Engineer ID - [id number] 07:07:00 Test Item Value Reference Range Interpretation Comments PHOSPHORUS (BEAKER) (test code = 3.8 mg/dL 2.3-4.7 604) Aerospace Engineer ID - [facility] only[facility]2020-07-12 06:12:00 Test Item Value Reference Range Interpretation Comments WBC (test code = 6690-2) 9.2 3.5- 10.5 K/L RBC (test code = 789-8) 2.34 3.93- 5.22 M/L L MCHC (test code = 786-4) 33.0 32.2- 35.5 GM/DL L Hematocrit (test code = 4544-3) 23.0 % 34.1-44.9 L MCV (test code = 787-2) 98.3 fL 79.4-94.8 H MCH (test code = 785-6) 32.5 pg 25.6-32.2 H RDW (test code = 788-0) 13.0 % 11.7-14.4 Platelets (test code = 777-3) 165 150- 450 K/CU MM MPV (test code = 10095-6) 12.4 fL 9.4-12.3 H nRBC (test code = 413) 0 0- 0 /100 WBC Lab Interpretation (test code = Abnormal 08894-6) [facility]2020-07-12 06:12:00 Test Item Value Reference Range Interpretation Comments WHITE BLOOD CELL COUNT (BEAKER) 9.2 K/ L 3.5-10.5 (test code = 775) RED BLOOD CELL COUNT (BEAKER) 2.34 M/ L 3.93-5.22 L (test code = 761) HEMOGLOBIN (BEAKER) (test code = 7.6 GM/DL 11.2-15.7 L 410) HEMATOCRIT (BEAKER) (test code = 23.0 % 34.1-44.9 L 411) MEAN CORPUSCULAR VOLUME (BEAKER) 98.3 fL 79.4-94.8 H (test code = 753) MEAN CORPUSCULAR HEMOGLOBIN 32.5 pg 25.6-32.2 H (BEAKER) (test code = 751) MEAN CORPUSCULAR HEMOGLOBIN CONC 33.0 GM/DL 32.2-35.5 (BEAKER) (test code = 752) RED CELL DISTRIBUTION WIDTH 13.0 % 11.7-14.4 (BEAKER) (test code = 412) PLATELET COUNT (BEAKER) (test 165 K/CU MM 150-450 code = 756) MEAN PLATELET VOLUME (BEAKER) 12.4 fL 9.4-12.3 H (test code = 754) NUCLEATED RED BLOOD CELLS 0 /100 WBC 0-0 (BEAKER) (test code = 413) POCT-GLUCOSE [id number] 21:22:00 Test Item Value Reference Range Interpretation Comments POC-GLUCOSE METER 131 mg/dL 70-110 H : Notified RN/MD: (AKER) (test code = TESTED AT [facility] 6720 1538) BRANDO [facility], [address]: Aerospace Engineer/Techni carlos ID = [id number] for JEFFERY DUARTE POCT-GLUCOSE [id number] 18:09:00 Test Item Value Reference Range Interpretation Comments POC-GLUCOSE METER 140 mg/dL 70-110 H : TESTED A T [facility] 67 ([facility] (test code = [facility], 1538) [address]: Aerospace Engineer/Techni carlos ID = [id number] for BRANDAN DANY SHAY Urine Immunofixation, [id number] 16:27:00 Test Item Value Reference Range Interpretation Comments Protein, Urine (test 413 mg/dL 0-14 H code = 2888-6) Albumin %, Urine 58.2 % (test code = 44466-8) Globulin %, Urine 41.8 % (test code = 12825-6) URINE MICHAELA ID (test UIFE to be This is a code = 2602) repeated; corrected resul t. previous results Previous re sult incorrect. was No monoclon al proteins detect ed. Polyclonal distribution of immunoglobulins . on 07/11/2020 at 1611 REPAIRER RECREATIONAL VEHICLE Pathologist: (test Kim code = 2603) MD Noah (electronic signature) SILVER (test code = SILVER) Aerospace Engineer ID - RADHA Aleman Lab Interpretation Abnormal (test code = 24719-9) [facility], [id number] 16:27:00 Test Item Value Reference Range Interpretation Comments PROTEIN, URINE 413 mg/dL 0-14 H (BEAKER) (test code = 1569) ALBUMIN URINE ELP 58.2 % (BEAKER) (test code = 1018) GAMMA GLOBULIN 41.8 % URINE (BEAKER) (test code = 1015) URINE MICHAELA ID-[id number] UIFE to be This is a c orrected (BEAKER) (test repeated; result. Previ ous code = 2602) previous results result was No incorrect. monoclonal prot eins detected. Polyc lonal distribution of immunoglobulins . on 07/11/2020 at 16 11 REPAIRER RECREATIONAL VEHICLE [facility]-PATHOLOGIST- Kim Dwyer (MURRAY) MD Noah (test code = (electronic 9020) signature) Aerospace Engineer ID - RADHA CImmunofixation electrophoresis (MICHAELA)2020-07-11 16:17:00 Test Item Value Reference Range Interpretation Comments IgG (test code = 2465-3) 734 mg/dL 540-1822 IgA (test code = 2458-8) 205 mg/dL 63-484 IgM (test code = 2464-6) 68 mg/dL 22-293 Serum MICHAELA Identification No monoclonal (test code = 1814) proteins detected. Polyclonal distribution of immunoglobulins. Pathologist: (test code Kim Zamora, = 2597) (electronic signature) SILVER (test code = SILVER) Aerospace Engineer ID - RADHA C [facility] Hospital[facility]MUNOFIXATION ELECTROPHORESIS (MICHAELA)2020-07-11 16:17:00 Test Item Value Reference Range Interpretation Comments IMMUNOGLOBULIN G (IGG) 734 mg/dL 540-1,822 (BEAKER) (test code = 427) IMMUNOGLOBULIN A (IGA) 205 mg/dL 63-484 (BEAKER) (test code = 639) IMMUNOGLOBULIN M (IGM) 68 mg/dL 22-293 (BEAKER) (test code = 638) SERUM MICHAELA ID (BEAKER) No monoclonal (test code = 1814) proteins detected. Polyclonal distribution of immunoglobulins. [id number] Zamora (MURRAY) (test code = (electronic 2119) signature) Aerospace Engineer ID - JUN [id number] 14:37:00 Test Item Value Reference Range Interpretation Comments RPR (test code = 45770-8) Nonreactive Nonreactive Lab Interpretation (test code = Normal 48996-5) [id number] 14:37:00 Test Item Value Reference Range Interpretation Comments RPR SCREEN ([facility]) (test code = Nonreactive Nonreactive 420) Urine Protein Electrophoresis, [id number] 13:28:00 Test Item Value Reference Range Interpretation Comments Protein, Urine (test code 413 mg/dL 0-14 H = 2888-6) Albumin %, Urine (test 58.2 % code = 97723-0) Globulin %, Urine (test 41.8 % code = 71198-0) UPEP,ID (test code = At least one band 2604) present in gamma region. Urine MICHAELA pending for further characterization. Pathologist: (test code = Kim Zamora, 2605) (electronic signature) SILVER (test code = SILVER) Aerospace Engineer ID - CARLOS Shaver Lab Interpretation (test Abnormal code = 68439-4) [facility] PROTEIN ELECTROPHORESIS, [id number] 13:28:00 Test Item Value Reference Range Interpretation Comments PROTEIN, URINE 413 mg/dL 0-14 H (BEAKER) (test code = 1569) ALBUMIN URINE ELP 58.2 % (BEAKER) (test code = 1018) GAMMA GLOBULIN URINE 41.8 % (BEAKER) (test code = 1015) UPEP, ID-438 (BEAKER) At least one band (test code = 2604) present in gamma region. Urine MICHAELA pending for further characterization. [id number] Kim Zamora MD (BEAKER) (test code = (electronic signature) 2605) Aerospace Engineer YNES GONZALEZ MPOCT-GLUCOSE [id number] 12:24:00 Test Item Value Reference Range Interpretation Comments POC-GLUCOSE METER 207 mg/dL 70-110 H : TESTED A T [facility] 6720 (BEAKER) (test code = MARA Mullins [facility], 1538) [address]: Aerospace Engineer/Techni carlos ID = [id number] for BRANDAN DANY SHAY Protein electrophoresis, [id number] 11:54:00 Test Item Value Reference Range Interpretation Comments Albumin Fraction (test 1.8 3.5- 5.5 gm/dL L code = 405) Alpha 1 Fraction (test 0.5 0.2- 0.4 gm/dL H code = 389) Alpha 2 Fraction (test 0.8 0.5- 0.9 gm/dL code = 390) Beta Fraction (test 0.6 0.6- 1.1 gm/dL code = 392) Gamma Globulin 0.9 0.7- 1.7 gm/dL Fraction (test code = 391) Interpretation (test Small band present in code = 2615) terminal gamma region; concentration is insufficient to accurately quantitate. Serum MICHAELA for characterization is pending. Pathologist: (test Kim Zamora MD code = 2616) (electronic signature) Protein, Total (test 4.6 6.0- 8.3 gm/dL L code = 2660) SILVER (test code = SILVER) Aerospace Engineer ID - RADHA C Lab Interpretation Abnormal (test code = 29673-5) [facility] Hospital[facility]OTE[facility] ELECTROPHORESIS, [id number] 11:54:00 Test Item Value Reference Range Interpretation Comments ALBUMIN FRACTION 1.8 gm/dL 3.5-5.5 L (BEAKER) (test code = 405) ALPHA 1 FRACTION 0.5 gm/dL 0.2-0.4 H (BEAKER) (test code = 389) ALPHA 2 FRACTION 0.8 gm/dL 0.5-0.9 (BEAKER) (test code = 390) BETA FRACTION 0.6 gm/dL 0.6-1.1 (BEAKER) (test code = 392) GAMMA GLOBULIN 0.9 gm/dL 0.7-1.7 FRACTION (BEAKER) (test code = 391) INTERPRETATION-119 Small band present in (BEAKER) (test code terminal gamma region; = 2615) concentration is insufficient to accurately quantitate. Serum MICHAELA for characterization is pending. [id number] Kim Zamora MD 9 (BEAKER) (test (electronic signature) code = 2616) PROTEIN TOTAL 4.6 gm/dL 6.0-8.3 L SERUM, SPEP (BEAKER) (test code = 2660) Aerospace Engineer ID - RADHA CPOCT-GLUCOSE [id number] 08:19:00 Test Item Value Reference Range Interpretation Comments POC-GLUCOSE METER 154 mg/dL 70-110 H : TESTED A T [facility] 6720 (BEAKER) (test code = [place], 1538) [address]: Aerospace Engineer/Techni carlos ID = [id number] for DANY OLIVEIRA BASIC METABOLIC [id number] 07:44:00 Test Item Value Reference Range Interpretation Comments SODIUM (BEAKER) 138 meq/L 136-145 (test code = 381) POTASSIUM (BEAKER) 4.1 meq/L 3.5-5.1 (test code = 379) CHLORIDE (BEAKER) 109 meq/L 98-107 H (test code = 382) CO2 (BEAKER) (test 20 meq/L 22-29 L code = 355) BLOOD UREA NITROGEN 44 mg/dL 7-21 H (BEAKER) (test code = 354) CREATININE (BEAKER) 2.62 mg/dL 0.57-1.25 H (test code = 358) GLUCOSE RANDOM 142 mg/dL 70-105 H (BEAKER) (test code = 652) CALCIUM (BEAKER) 7.6 mg/dL 8.4-10.2 L (test code = 697) EGFR (BEAKER) (test 17 mL/min/1.73 ESTIMA DAT GFR IS code = 1092) sq m NOT ACCURATE CREATININE CLEARANCE IN PREDICTING GLOMERULAR FILTRATION RATE . ESTIMATED GFR I S NOT APPLICABLE FOR DIALYSIS PATIEN TS. Aerospace Engineer ID - [id number] 07:37:00 Test Item Value Reference Range Interpretation Comments MAGNESIUM (BEAKER) (test code = 1.9 mg/dL 1.6-2.6 627) Aerospace Engineer ID - [id number] 07:37:00 Test Item Value Reference Range Interpretation Comments PHOSPHORUS (BEAKER) (test code = 4.0 mg/dL 2.3-4.7 604) Aerospace Engineer ID - DBCBC (HEMOGRAM ONLY)2020-07-11 06:48:00 Test Item Value Reference Range Interpretation Comments WHITE BLOOD CELL COUNT (BEAKER) 9.3 K/ L 3.5-10.5 (test code = 775) RED BLOOD CELL COUNT (BEAKER) 2.50 M/ L 3.93-5.22 L (test code = 761) HEMOGLOBIN (BEAKER) (test code = 8.0 GM/DL 11.2-15.7 L 410) HEMATOCRIT (BEAKER) (test code = 24.6 % 34.1-44.9 L 411) MEAN CORPUSCULAR VOLUME (BEAKER) 98.4 fL 79.4-94.8 H (test code = 753) MEAN CORPUSCULAR HEMOGLOBIN 32.0 pg 25.6-32.2 (BEAKER) (test code = 751) MEAN CORPUSCULAR HEMOGLOBIN CONC 32.5 GM/DL 32.2-35.5 (BEAKER) (test code = 752) RED CELL DISTRIBUTION WIDTH 13.0 % 11.7-14.4 (BEAKER) (test code = 412) PLATELET COUNT (AKER) (test 170 K/CU MM 150-450 code = 756) MEAN PLATELET VOLUME (BEAKER) 12.4 fL 9.4-12.3 H (test code = 754) NUCLEATED RED BLOOD CELLS 0 /100 WBC 0-0 (BEAKER) (test code = 413) POCT-GLUCOSE [id number] 22:00:00 Test Item Value Reference Range Interpretation Comments POC-GLUCOSE METER 203 mg/dL 70-110 H : TESTED A T [facility] 6720 ([employer]) (test code = [facility] [employer] [facility], 1538) [address]: Aerospace Engineer/Techni carlos ID = [id number] for DE NNIS, GENE ECG 12 [id number] 14:31:01Interface, External Ris In - 07/10/2020 2:31 PM CSTVentricular Rate 86 BPMAtrial Rate 89 BPMQRS Duration 76 msQ-T Interval 360 msQTC Calculation(Bazett) 430 msR Randall -50 degreesT Randall 33 degreesAccelerated Junctional rhythmLeft anterior fascicular blockJunctional ST depression, probably normalAbnormal ECGWhen compared with ECG of 07-JUL-2020 13:09,Junctional rhythm has replaced Sinus rhythmConfirmedby MD MOE, PAYAM ([id number]) on 07/10/2020 2:31:00 [facility] 2020-07-10 12:54:00 Test Item Value Reference Range Interpretation Comments POC-GLUCOSE METER 214 mg/dL 70-110 H : TESTED A T [facility] 6720 ([employer]) (test code = [facility], 1538) [address]: Aerospace Engineer/Techni carlos ID = [id number] for RO SHAHID, KARINAECA Urine [id number] 11:58:00 Test Item Value Reference Range Interpretation Comments Result (test code = 6463-4) No growth [id number] 09:04:00 Test Item Value Reference Range Interpretation Comments PHOSPHORUS (BEAKER) (test code = 4.4 mg/dL 2.3-4.7 604) Aerospace Engineer ID - DBPOCT-GLUCOSE [id number] 08:34:00 Test Item Value Reference Range Interpretation Comments POC-GLUCOSE METER 98 mg/dL 70-110 : TESTED A T [facility] 6720 (BEAKER) (test code = [place], 1538) [address]: Aerospace Engineer/Techni carlos ID = [id number] for Berta Kebede BASIC METABOLIC [id number] 06:33:00 Test Item Value Reference Range Interpretation Comments SODIUM (BEAKER) 143 meq/L 136-145 (test code = 381) POTASSIUM (BEAKER) 4.4 meq/L 3.5-5.1 (test code = 379) CHLORIDE (BEAKER) 113 meq/L 98-107 H (test code = 382) CO2 (BEAKER) (test 23 meq/L 22-29 code = 355) BLOOD UREA NITROGEN 45 mg/dL 7-21 H (BEAKER) (test code = 354) CREATININE (BEAKER) 2.68 mg/dL 0.57-1.25 H (test code = 358) GLUCOSE RANDOM 103 mg/dL 70-105 (BEAKER) (test code = 652) CALCIUM (BEAKER) 7.4 mg/dL 8.4-10.2 L (test code = 697) EGFR (BEAKER) (test 17 mL/min/1.73 ESTIMA DAT GFR IS code = 1092) sq m NOT ACCURATE CREATININE CLEARANCE IN PREDICTING GLOMERULAR FILTRATION RATE . ESTIMATED GFR I S NOT APPLICABLE FOR DIALYSIS PATIEN TS. Aerospace Engineer ID - EDASICBC (HEMOGRAM ONLY)2020-07-10 06:01:00 Test Item Value Reference Range Interpretation Comments WHITE BLOOD CELL COUNT (BEAKER) 6.2 K/ L 3.5-10.5 (test code = 775) RED BLOOD CELL COUNT (BEAKER) 2.43 M/ L 3.93-5.22 L (test code = 761) HEMOGLOBIN (BEAKER) (test code = 7.7 GM/DL 11.2-15.7 L 410) HEMATOCRIT (BEAKER) (test code = 24.3 % 34.1-44.9 L 411) MEAN CORPUSCULAR VOLUME (BEAKER) 100.0 fL 79.4-94.8 H (test code = 753) MEAN CORPUSCULAR HEMOGLOBIN 31.7 pg 25.6-32.2 (BEAKER) (test code = 751) MEAN CORPUSCULAR HEMOGLOBIN CONC 31.7 GM/DL 32.2-35.5 L (BEAKER) (test code = 752) RED CELL DISTRIBUTION WIDTH 13.2 % 11.7-14.4 (BEAKER) (test code = 412) PLATELET COUNT (BEAKER) (test 135 K/CU MM 150-450 L code = 756) MEAN PLATELET VOLUME (BEAKER) 12.3 fL 9.4-12.3 (test code = 754) NUCLEATED RED BLOOD CELLS 0 /100 WBC 0-0 (BEAKER) (test code = 413) POCT-GLUCOSE [id number] 21:33:00 Test Item Value Reference Range Interpretation Comments POC-GLUCOSE METER 174 mg/dL 70-110 H : TESTED A T [facility] 6720 (BEAKER) (test code = [facility], 1538) [address]: Aerospace Engineer/Techni carlos ID = [id number] for DE NNIS, GENE POCT-GLUCOSE [id number] 18:45:00 Test Item Value Reference Range Interpretation Comments POC-GLUCOSE METER 143 mg/dL 70-110 H : TESTED A T [facility] 6720 (BEAKER) (test code = [facility], 1538) [address]: Aerospace Engineer/Techni carlos ID = [id number] for AK BETTYE COTO Blood gas, [id number] 13:53:00 Test Item Value Reference Range Interpretation Comments pH, Siddhartha (test code = 2746-6) 7.33 7.32-7.42 pCO2, Siddhartha (test code = 755) 43 41- 51 mm Hg pO2, Siddhartha (test code = 2705-2) 29 25- 40 mm Hg O2 Sat, Siddhartha (test code = 2711-0) 50.6 % 40-70 HCO3, Siddhartha (test code = 41156-2) 22 mmol/L 21-29 Base Excess, Siddhartha (test code = -3.3 mmol/L -2-3 L 1927-3) Patient Temperature (test code = 37.0 8310-5) FIO2 (test code = 1819) 21 Lab Interpretation (test code = Abnormal 03552-1) [facility], [id number] 13:53:00 Test Item Value Reference Range Interpretation Comments PH VENOUS (BEAKER) (test code = 7.33 7.32-7.42 701) PCO2 VENOUS (BEAKER) (test code = 43 mm Hg 41-51 755) PO2 VENOUS (BEAKER) (test code = 29 mm Hg 25-40 702) O2 SATURATION VENOUS (BEAKER) 50.6 % 40.0-70.0 (test code = 703) HCO3 VENOUS (BEAKER) (test code = 22 mmol/L 21-29 705) BASE EXCESS VENOUS (BEAKER) (test -3.3 mmol/L -2.0-3.0 L code = 704) PATIENT TEMPERATURE (BEAKER) 37.0 (test code = 1818) FIO2 (BEAKER) (test code = 1819) 21.0 POCT-GLUCOSE [id number] 12:40:00 Test Item Value Reference Range Interpretation Comments POC-GLUCOSE METER 124 mg/dL 70-110 H : [facility] (test code = [place], 1538) [address]: Aerospace Engineer/Techni carlos ID = [id number] for BETTYE JIANG Lactate dehydrogenase (LDH)2020-07-09 09:25:00 Test Item Value Reference Range Interpretation Comments LDH (test code = 2532-0) 261 U/L 125-220 H SILVER (test code = SILVER) Aerospace Engineer ID Brit Shaver Lab Interpretation (test Abnormal code = 86252-7) [facility] HospitalUric [id number] 09:25:00 Test Item Value Reference Range Interpretation Comments Uric Acid (test code = 7.3 mg/dL 2.6-7.2 H 3084-1) SILVER (test code = SILVER) Aerospace Engineer ID - CARLOS Shaver Lab Interpretation (test Abnormal code = 71965-5) [facility] HospitalLACTATE DEHYDROGENASE (LDH)2020-07-09 09:25:00 Test Item Value Reference Range Interpretation Comments LACTATE DEHYDROGENASE (BEAKER) (test 261 U/L 125-220 H code = 635) Aerospace Engineer ID - CARLOS MURIC [id number] 09:25:00 Test Item Value Reference Range Interpretation Comments URIC ACID (BEAKER) (test code = 7.3 mg/dL 2.6-7.2 H 773) Aerospace Engineer ID - CARLOS MPOCT-GLUCOSE [id number] 08:16:00 Test Item Value Reference Range Interpretation Comments POC-GLUCOSE METER 106 mg/dL 70-110 : [facility] ([facility]ER[facility] (test code = [place], 1538) [address]: Aerospace Engineer/Techni carlos ID = [id number] for BETTYE JIANG BASIC METABOLIC [id number] 07:28:00 Test Item Value Reference Range Interpretation Comments SODIUM (BEAKER) 142 meq/L 136-145 (test code = 381) POTASSIUM (BEAKER) 4.9 meq/L 3.5-5.1 (test code = 379) CHLORIDE (BEAKER) 112 meq/L 98-107 H (test code = 382) CO2 (BEAKER) (test 25 meq/L 22-29 code = 355) BLOOD UREA NITROGEN 46 mg/dL 7-21 H (BEAKER) (test code = 354) CREATININE (BEAKER) 3.03 mg/dL 0.57-1.25 H (test code = 358) GLUCOSE RANDOM 116 mg/dL 70-105 H (BEAKER) (test code = 652) CALCIUM (BEAKER) 7.4 mg/dL 8.4-10.2 L (test code = 697) EGFR (BEAKER) (test 15 mL/min/1.73 ESTIMA DAT GFR IS code = 1092) sq m NOT ACCURATE CREATININE CLEARANCE IN PREDICTING GLOMERULAR FILTRATION RATE . ESTIMATED GFR I S NOT APPLICABLE FOR DIALYSIS PATIEN TS. Aerospace Engineer ID - ADMINCBC with platelet count + automated [id number] 07:22:00 Test Item Value Reference Range Interpretation Comments WBC (test code = 6690-2) 7.0 3.5- 10.5 K/L RBC (test code = 789-8) 2.50 3.93- 5.22 M/L L MCHC (test code = 786-4) 32.8 32.2- 35.5 GM/DL L Hematocrit (test code = 4544-3) 24.4 % 34.1-44.9 L MCV (test code = 787-2) 97.6 fL 79.4-94.8 H MCH (test code = 785-6) 32.0 pg 25.6-32.2 RDW (test code = 788-0) 13.6 % 11.7-14.4 Platelets (test code = 777-3) 105 150- 450 K/CU MM L MPV (test code = 55401-2) 12.7 fL 9.4-12.3 H nRBC (test code = 413) 0 0- 0 /100 WBC % Neutros (test code = 429) 66 % % Lymphs (test code = 430) 20 % % Monos (test code = 431) 10 % % Eos (test code = 432) 4 % % Baso (test code = 437) 0 % # Neutros (test code = 670) 4.62 1.56- 6.13 K/L # Lymphs (test code = 414) 1.37 1.18- 3.74 K/L # Monos (test code = 415) 0.69 0.24- 0.36 K/L H # Eos (test code = 416) 0.25 0.04- 0.36 K/L # Baso (test code = 417) 0.03 0.01- 0.08 K/L Immature Granulocytes-Relative 1 % 0-1 (test code = 2801) Lab Interpretation (test code = Abnormal 41496-7) [facility] W/PLT COUNT & AUTO [id number] 07:22:00 Test Item Value Reference Range Interpretation Comments WHITE BLOOD CELL COUNT (BEAKER) 7.0 K/ L 3.5-10.5 (test code = 775) RED BLOOD CELL COUNT (BEAKER) 2.50 M/ L 3.93-5.22 L (test code = 761) HEMOGLOBIN (BEAKER) (test code = 8.0 GM/DL 11.2-15.7 L 410) HEMATOCRIT (BEAKER) (test code = 24.4 % 34.1-44.9 L 411) MEAN CORPUSCULAR VOLUME (BEAKER) 97.6 fL 79.4-94.8 H (test code = 753) MEAN CORPUSCULAR HEMOGLOBIN 32.0 pg 25.6-32.2 (BEAKER) (test code = 751) MEAN CORPUSCULAR HEMOGLOBIN CONC 32.8 GM/DL 32.2-35.5 (BEAKER) (test code = 752) RED CELL DISTRIBUTION WIDTH 13.6 % 11.7-14.4 (BEAKER) (test code = 412) PLATELET COUNT (BEAKER) (test 105 K/CU MM 150-450 L code = 756) MEAN PLATELET VOLUME (BEAKER) 12.7 fL 9.4-12.3 H (test code = 754) NUCLEATED RED BLOOD CELLS 0 /100 WBC 0-0 (BEAKER) (test code = 413) NEUTROPHILS RELATIVE PERCENT 66 % (BEAKER) (test code = 429) LYMPHOCYTES RELATIVE PERCENT 20 % (BEAKER) (test code = 430) MONOCYTES RELATIVE PERCENT 10 % (BEAKER) (test code = 431) EOSINOPHILS RELATIVE PERCENT 4 % (BEAKER) (test code = 432) BASOPHILS RELATIVE PERCENT 0 % (BEAKER) (test code = 437) NEUTROPHILS ABSOLUTE COUNT 4.62 K/ L 1.56-6.13 (BEAKER) (test code = 670) LYMPHOCYTES ABSOLUTE COUNT 1.37 K/ L 1.18-3.74 (BEAKER) (test code = 414) MONOCYTES ABSOLUTE COUNT (BEAKER) 0.69 K/ L 0.24-0.36 H (test code = 415) EOSINOPHILS ABSOLUTE COUNT 0.25 K/ L 0.04-0.36 (BEAKER) (test code = 416) BASOPHILS ABSOLUTE COUNT (BEAKER) 0.03 K/ L 0.01-0.08 (test code = 417) IMMATURE GRANULOCYTES-RELATIVE 1 % 0-1 PERCENT (BEAKER) (test code = 2801) PTH, [id number] 06:07:00 Test Item Value Reference Range Interpretation Comments PTH (test code = 2731-8) 278.4 pg/mL 8.5-72.5 H SILVER (test code = SILVER) Aerospace Engineer ID - ADMIN Lab Interpretation (test Abnormal code = 10536-5) [facility], [id number] 06:07:00 Test Item Value Reference Range Interpretation Comments PARATHYROID HORMONE INTACT 278.4 pg/mL 8.5-72.5 H (BEAKER) (test code = 577) Aerospace Engineer ID - ADMINHemoglobin [id number] 22:18:00 Test Item Value Reference Range Interpretation Comments Hemoglobin A1C (test code = 4548-4) 6.8 % 4.3-6.1 H Lab Interpretation (test code = Abnormal 70779-6) [facility] [id number] 22:18:00 Test Item Value Reference Range Interpretation Comments HEMOGLOBIN A1C (BEAKER) (test code = 6.8 % 4.3-6.1 H 368) POCT-GLUCOSE [id number] 21:23:00 Test Item Value Reference Range Interpretation Comments POC-GLUCOSE METER 203 mg/dL 70-110 H : TESTED A T [facility] 6720 (BEAKER) (test code = MARA KEEN RI, 1538) 33868: Aerospace Engineer/Techni carlos ID = [id number] for ROSI GIBSON [id number] 18:31:00 Test Item Value Reference Range Interpretation Comments PHOSPHORUS (BEAKER) (test code = 4.6 mg/dL 2.3-4.7 604) Aerospace Engineer ID - RADHA CHepatitis C [id number] 18:15:00 Test Item Value Reference Range Interpretation Comments Hepatitis C Ab (test code Nonreactive Nonreactive = 25897-8) SILVER (test code = SILVER) Aerospace Engineer ID - RADHA C Lab Interpretation (test Normal code = 13743-6) [facility] Antigen with HIV-1/2 [id number] 18:15:00 Test Item Value Reference Range Interpretation Comments HIV-1 Antigen with HIV Nonreactive Nonreactive 1&2 Antibody (test code = 39355-5) SILVER (test code = SILVER) Aerospace Engineer ID - RADHA C Lab Interpretation (test Normal code = 15134-8) [facility]AT[facility]IS [facility] [id number] 18:15:00 Test Item Value Reference Range Interpretation Comments HEPATITIS C ANTIBODY (BEAKER) Nonreactive Nonreactive (test code = 367) Aerospace Engineer ID - RADHA CHIV-1 ANTIGEN WITH HIV-1/2 [id number] 18:15:00 Test Item Value Reference Range Interpretation Comments HIV-1 ANTIGEN WITH HIV 1\T\2 Nonreactive Nonreactive ANTIBODY (2) (BEAKER) (test code = 2586) Aerospace Engineer ID - RADHA CChloride, random [id number] 18:10:00 Test Item Value Reference Range Interpretation Comments ChlorideUr (test 33 meq/L code = 09705-7) SILVER (test code = Reference Range: No SILVER) NormalsOperator ID - RADHA [facility] [id number] 18:10:00 Test Item Value Reference Range Interpretation Comments Potassium Urine 39.9 meq/L (test code = 2828-2) SILVER (test code = Reference Range: No SILVER) NormalsOperator ID - RADHA [facility] [id number] 18:10:00 Test Item Value Reference Range Interpretation Comments Sodium Urine (test 45 meq/L code = 2955-3) SILVER (test code = Reference Range: No SILVER) NormalsOperator ID - RADHA [facility] CenterCHLORIDE, RANDOM [id number] 18:10:00 Test Item Value Reference Range Interpretation Comments CHLORIDE URINE (BEAKER) (test code = 33 meq/L 682) Reference Range: No NormalsOperator ID - RADHA CPOTASSIUM, RANDOM [id number] 18:10:00 Test Item Value Reference Range Interpretation Comments POTASSIUM URINE (BEAKER) (test 39.9 meq/L code = 195) Reference Range: No NormalsOperator ID - RADHA CSODIUM, RANDOM [id number] 18:10:00 Test Item Value Reference Range Interpretation Comments SODIUM URINE (BEAKER) (test code = 45 meq/L 243) Reference Range: No NormalsOperator ID - RADHA CCreatinine, random [id number] 17:53:00 Test Item Value Reference Range Interpretation Comments Creatinine, Ur 87.0 mg/dL (test code = 2161-8) SILVER (test code = Reference Range: No SILVER) NormalsOperator ID - [facility] [id number] 17:53:00 Test Item Value Reference Range Interpretation Comments CREATININE URINE (BEAKER) (test 87.0 mg/dL code = 375) Reference Range: No NormalsOperator ID - RADHA CProtein, random [id number] 14:40:00 Test Item Value Reference Range Interpretation Comments Protein, Urine (test code >392 0-14 H = 2888-6) SILVER (test code = SILVER) Aerospace Engineer ID - RADHA C Lab Interpretation (test Abnormal code = 13575-3) [facility]PROTE[facility]ANDOM [id number] 14:40:00 Test Item Value Reference Range Interpretation Comments PROTEIN, URINE (BEAKER) (test code = > mg/dL 0-14 H 1569) Aerospace Engineer ID - JUN CBASIC METABOLIC [id number] 13:59:00 Test Item Value Reference Range Interpretation Comments SODIUM (BEAKER) 144 meq/L 136-145 (test code = 381) POTASSIUM (BEAKER) 5.2 meq/L 3.5-5.1 H (test code = 379) CHLORIDE (BEAKER) 115 meq/L 98-107 H (test code = 382) CO2 (BEAKER) (test 21 meq/L 22-29 L code = 355) BLOOD UREA NITROGEN 44 mg/dL 7-21 H (BEAKER) (test code = 354) CREATININE (BEAKER) 2.99 mg/dL 0.57-1.25 H (test code = 358) GLUCOSE RANDOM 148 mg/dL 70-105 H (BEAKER) (test code = 652) CALCIUM (BEAKER) 7.6 mg/dL 8.4-10.2 L (test code = 697) EGFR (BEAKER) (test 15 mL/min/1.73 ESTIMA DAT GFR IS code = 1092) sq m NOT ACCURATE CREATININE CLEARANCE IN PREDICTING GLOMERULAR FILTRATION RATE . ESTIMATED GFR I S NOT APPLICABLE FOR DIALYSIS PATIEN TS. Aerospace Engineer ID - JUN CUrinalysis w/Microscopic + Reflex to [id number] 12:41:00 Test Item Value Reference Range Interpretation Comments Color, UA (test code = Light Yellow 5778-6) Clarity, UA (test code = Hazy 5767-9) Specific [place], UA (test 1.016 1.001-1.035 code = 5811-5) pH, UA (test code = 6.0 5.0-8.0 5803-2) Protein, UA (test code = 300 mg/dL Negative A 10493-4) Glucose, UA (test code = 70 mg/dL Negative A 365) Ketones, UA (test code = Negative Negative 4664-8) Bilirubin, UA (test code = Negative Negative 06896-5) Blood, UA (test code = Moderate Negative A 59220-4) Nitrite, UA (test code = Negative Negative 5802-4) Leukocytes, UA (test code Small Negative A = 5799-2) Urobilinogen, UA (test 0.2 mg/dL 0.2-1 code = 01634-7) RBC, UA (test code = 1 /HPF 82980-5) WBC, UA (test code = 19 /HPF 5821-4) Bacteria, UA (test code = Few 51472-2) Mucus (test code = 8247-9) Rare Specimen Source (test code = 2795) SILVER (test code = SILVER) Aerospace Engineer ID - [auto]Aerospace Engineer ID - tech Lab Interpretation (test Abnormal code = 35300-5) [facility] W/ REFLEX URINE [id number] 12:41:00 Test Item Value Reference Range Interpretation Comments COLOR (BEAKER) (test code = 470) Light Yellow CLARITY (BEAKER) (test code = Hazy 469) SPECIFIC GRAVITY UA (BEAKER) 1.016 1.001-1.035 (test code = 468) PH UA (BEAKER) (test code = 467) 6.0 5.0-8.0 PROTEIN UA (BEAKER) (test code = 300 mg/dL Negative A 464) GLUCOSE UA (BEAKER) (test code = 70 mg/dL Negative A 365) KETONES UA (BEAKER) (test code = Negative Negative 371) BILIRUBIN UA (BEAKER) (test code Negative Negative = 462) BLOOD UA (BEAKER) (test code = Moderate Negative A 461) NITRITE UA (BEAKER) (test code = Negative Negative 465) LEUKOCYTE ESTERASE UA (BEAKER) Small Negative A (test code = 466) UROBILINOGEN UA (BEAKER) (test 0.2 mg/dL 0.2-1.0 code = 463) RBC UA (BEAKER) (test code = 1 /HPF 519) WBC UA (BEAKER) (test code = 19 /HPF 520) BACTERIA (BEAKER) (test code = Few 517) MUCUS (BEAKER) (test code = Rare 1574) SOURCE(BEAKER) (test code = 2795) Aerospace Engineer ID - [auto]Aerospace Engineer ID - [id number] 11:47:00 Test Item Value Reference Range Interpretation Comments Ferritin (test code = 106.31 ng/mL 5-275 2276-4) SILVER (test code = SILVER) Aerospace Engineer ID - RADHA C Lab Interpretation (test Normal code = 24720-5) [facility] HospitalVitamin B12 and [id number] 11:47:00 Test Item Value Reference Range Interpretation Comments Vitamin B12 (test code = 381 pg/mL 197-007 0415-9) Folate (test code = 9.40 ng/mL >=7.00 2284-8) SILVER (test code = SILVER) Aerospace Engineer ID - RADHA C Lab Interpretation (test Normal code = 63609-0) [facility] HospitalFERRITIN2021-01-22 11:47:00 Test Item Value Reference Range Interpretation Comments FERRITIN (BEAKER) (test code = 106.31 ng/mL 5.00-275.00 361) Aerospace Engineer ID - RADHA CVITAMIN B12 AND [id number] 11:47:00 Test Item Value Reference Range Interpretation Comments VITAMIN B12 (BEAKER) (test code = 381 pg/mL 213-816 774) FOLATE (BEAKER) (test code = 362) 9.40 ng/mL >=7.00 Aerospace Engineer ID - RADHA CU/S, RENAL, [id number] 11:14:00Reason for exam:->[facility] : 1930 Sex: FFINAL REPORT Renal ultrasound dated 07/08/2020 Comment: Real-time tr ansabdominal renal ultrasound was performed.Right kidney measures 9.5 x 4.7 x 5.0 cm. Left kidney measures 8.7 x 4.3 x 4.3 cm. Right renal cortex measures 1.2 cm. Left renal cortex measures 1.1 cm. Echogenicity of both renal parenchyma is normal. A 1.9 x 2.1 x 1.7 cm and 1.2 x 1.1 x 1.1 cm cysts are seen in right kidney. A 0.7 x 0.8 cm cyst is seen in the left kidney. A 5 x 4 x 5 mm, 6 x 5 x 6 mm,and 7 x 5 x 6 mm stones are seen in the right kidney. No hydronephrosis or hydroureter is apparent. The urinary bladder is contracted. Doppler ultrasound demonstrates patent main renal artery and vein bilaterally. Impression: 1. Bilateral renal cysts.2. Nonobstructive right renal stones. Signed: Carmita Muñozeport Verified Date/Time: 07/08/2020 11:14:30 US renal [id number] 11:14:00Interface, External Ris In - 07/08/2020 11:16 AM CSTFINAL REPORT Renal ultrasound dated 07/08/2020 Comment: Real-time transabdominal renal ultrasound was performed.Right kidney m easures 9.5 x 4.7 x 5.0 cm. Left kidney measures 8.7 x 4.3 x 4.3 cm. Right renal cortex measures 1.2 cm. Left renal cortex measures 1.1 cm. Echogenicity of both renal parenchyma is normal. A 1.9 x 2.1 x 1.7 cm and 1.2 x 1.1 x 1.1 cm cysts are seen in right kidney. A 0.7 x 0.8 cm cyst is seen in theleft kidney. A 5 x 4 x 5 mm, 6 x 5 x 6 mm, and 7 x 5 x 6 mm stones are seen in the right kidney. No hydronephrosis or hydroureter is apparent. The urinary bladder is contracted. Doppler ultrasound demonstrates patent main renal artery and vein bilaterally. Impression: 1. Bilateral renal cysts.2. Nonobstructive right renal stones. Signed: Carmita Muñoz MDReport Verified Date/Time: 07/08/2020 11:14:30 [facility]atoriumIron, TIBC, % sat. (without ferritin)2020-07-08 11:12:00 Test Item Value Reference Range Interpretation Comments Iron (test code = 2498-4) 36.0 ug/dL 40-160 L TIBC (test code = 2500-7) 194 ug/dL 250-450 L Iron % Saturation (test 19 % 20-55 L code = 2502-3) SILVER (test code = SILVER) Aerospace Engineer ID - RADHA C Lab Interpretation (test Abnormal code = 47461-8) [facility] HospitalIRON, TIBC, % SAT. (WITHOUT FERRITIN)2020-07-08 11:12:00 Test Item Value Reference Range Interpretation Comments IRON (BEAKER) (test code = 547) 36.0 ug/dL 40.0-160.0 L TOTAL IRON BINDING CAPACITY 194 ug/dL 250-450 L (BEAKER) (test code = 769) IRON % SATURATION (2) (BEAKER) 19 % 20-55 L (test code = 2590) Aerospace Engineer ID - RADHA CReticulocyte [id number] 11:06:00 Test Item Value Reference Range Interpretation Comments % Retic (test code = 1.2 % 0.5-1.7 91112-8) SILVER (test code = SILVER) Aerospace Engineer ID - [id number] Lab Interpretation (test Normal code = 05267-0) [facility] HospitalRETICULOCYTE [id number] 11:06:00 Test Item Value Reference Range Interpretation Comments RETICULOCYTE COUNT PCT (BEAKER) (test 1.2 % 0.5-1.7 code = 575) Aerospace Engineer ID - [id number] W/PLT COUNT & AUTO [id number] 11:04:00 Test Item Value Reference Range Interpretation Comments WHITE BLOOD CELL COUNT (BEAKER) 10.8 K/ L 3.5-10.5 H (test code = 775) RED BLOOD CELL COUNT (BEAKER) 2.49 M/ L 3.93-5.22 L (test code = 761) HEMOGLOBIN (BEAKER) (test code = 8.0 GM/DL 11.2-15.7 L 410) HEMATOCRIT (BEAKER) (test code = 25.7 % 34.1-44.9 L 411) MEAN CORPUSCULAR VOLUME (BEAKER) 103.2 fL 79.4-94.8 H (test code = 753) MEAN CORPUSCULAR HEMOGLOBIN 32.1 pg 25.6-32.2 (BEAKER) (test code = 751) MEAN CORPUSCULAR HEMOGLOBIN CONC 31.1 GM/DL 32.2-35.5 L (BEAKER) (test code = 752) RED CELL DISTRIBUTION WIDTH 13.7 % 11.7-14.4 (BEAKER) (test code = 412) PLATELET COUNT (BEAKER) (test 153 K/CU MM 150-450 code = 756) MEAN PLATELET VOLUME (BEAKER) 12.4 fL 9.4-12.3 H (test code = 754) NUCLEATED RED BLOOD CELLS 0 /100 WBC 0-0 (BEAKER) (test code = 413) NEUTROPHILS RELATIVE PERCENT 79 % (BEAKER) (test code = 429) LYMPHOCYTES RELATIVE PERCENT 11 % (BEAKER) (test code = 430) MONOCYTES RELATIVE PERCENT 10 % (BEAKER) (test code = 431) EOSINOPHILS RELATIVE PERCENT 0 % (BEAKER) (test code = 432) BASOPHILS RELATIVE PERCENT 0 % (BEAKER) (test code = 437) NEUTROPHILS ABSOLUTE COUNT 8.48 K/ L 1.56-6.13 H (BEAKER) (test code = 670) LYMPHOCYTES ABSOLUTE COUNT 1.18 K/ L 1.18-3.74 (BEAKER) (test code = 414) MONOCYTES ABSOLUTE COUNT (BEAKER) 1.04 K/ L 0.24-0.36 H (test code = 415) EOSINOPHILS ABSOLUTE COUNT 0.01 K/ L 0.04-0.36 L (BEAKER) (test code = 416) BASOPHILS ABSOLUTE COUNT (BEAKER) 0.02 K/ L 0.01-0.08 (test code = 417) IMMATURE GRANULOCYTES-RELATIVE 1 % 0-1 PERCENT (BEAKER) (test code = 2801) Creatine Kinase (CK)2020-07-08 08:39:00 Test Item Value Reference Range Interpretation Comments Total CK (test code = 383 U/L 29-200 H 2157-6) SILVER (test code = SILVER) Aerospace Engineer ID - RADHA C Lab Interpretation (test Abnormal code = 05851-4) [facility] HospitalCREATINE KINASE (CK)2020-07-08 08:39:00 Test Item Value Reference Range Interpretation Comments CREATINE KINASE TOTAL (BEAKER) (test 383 U/L 29-200 H code = 380) Aerospace Engineer ID - RADHA COSTELLO, PELVIS, 1 OR 2 [id number] 07:42:00Reason for exam:- >postopShould this be performed at the bedside?->Yes [facility] : 1930 Sex: FFINAL REPORT RAD, PELVIS, 1 OR 2 VIEWS INDICATION: postop COMPARISON: None TECHNIQUE: AP view of the pelvis FINDINGS/IMPRESSION:Left hip arthroplasty. No periprosthetic fracture. Signed: Mónica Unger Verified Date/Time: 07/08/2020 07:42:18 Reading Location:[facility] Reading Room XR pelvis 1 or 2 [id number] 07:42:00Interface, External Ris In - 07/08/2020 7:44 AM CSTFINAL REPORT RAD, PELVIS,1 OR 2 VIEWS INDICATION: postop COMPARISON: None TECHNIQUE: AP view of the pelvis FINDINGS/IMPRESSION:Left hip arthroplasty. No periprosthetic fracture. Signed: Mónica Unger Verified Date/Time: 07/08/2020 07:42:18 Reading Location: [facility] Radiology Reading Room [facility]atoriumBASI METABOLIC [id number] 07:29:00 Test Item Value Reference Range Interpretation Comments SODIUM (BEAKER) 144 meq/L 136-145 (test code = 381) POTASSIUM (BEAKER) 5.6 meq/L 3.5-5.1 H (test code = 379) CHLORIDE (BEAKER) 117 meq/L 98-107 H (test code = 382) CO2 (BEAKER) (test 19 meq/L 22-29 L code = 355) BLOOD UREA NITROGEN 43 mg/dL 7-21 H (BEAKER) (test code = 354) CREATININE (BEAKER) 2.85 mg/dL 0.57-1.25 H (test code = 358) GLUCOSE RANDOM 193 mg/dL 70-105 H (BEAKER) (test code = 652) CALCIUM (BEAKER) 7.5 mg/dL 8.4-10.2 L (test code = 697) EGFR (BEAKER) (test 16 mL/min/1.73 ESTIMA DAT GFR IS code = 1092) sq m NOT ACCURATE CREATININE CLEARANCE IN PREDICTING GLOMERULAR FILTRATION RATE . ESTIMATED GFR I S NOT APPLICABLE FOR DIALYSIS PATIEN TS. Aerospace Engineer ID - MAICOL WCBC W/PLT COUNT & AUTO [id number] 06:36:00 Test Item Value Reference Range Interpretation Comments WHITE BLOOD CELL COUNT (BEAKER) 8.9 K/ L 3.5-10.5 (test code = 775) RED BLOOD CELL COUNT (BEAKER) 2.46 M/ L 3.93-5.22 L (test code = 761) HEMOGLOBIN (BEAKER) (test code = 7.8 GM/DL 11.2-15.7 L 410) HEMATOCRIT (BEAKER) (test code = 25.5 % 34.1-44.9 L 411) MEAN CORPUSCULAR VOLUME (BEAKER) 103.7 fL 79.4-94.8 H (test code = 753) MEAN CORPUSCULAR HEMOGLOBIN 31.7 pg 25.6-32.2 (BEAKER) (test code = 751) MEAN CORPUSCULAR HEMOGLOBIN CONC 30.6 GM/DL 32.2-35.5 L (BEAKER) (test code = 752) RED CELL DISTRIBUTION WIDTH 13.7 % 11.7-14.4 (BEAKER) (test code = 412) PLATELET COUNT (BEAKER) (test 138 K/CU MM 150-450 L code = 756) MEAN PLATELET VOLUME (BEAKER) 12.0 fL 9.4-12.3 (test code = 754) NUCLEATED RED BLOOD CELLS 0 /100 WBC 0-0 (BEAKER) (test code = 413) NEUTROPHILS RELATIVE PERCENT 85 % (BEAKER) (test code = 429) LYMPHOCYTES RELATIVE PERCENT 6 % (BEAKER) (test code = 430) MONOCYTES RELATIVE PERCENT 9 % (BEAKER) (test code = 431) EOSINOPHILS RELATIVE PERCENT 0 % (BEAKER) (test code = 432) BASOPHILS RELATIVE PERCENT 0 % (BEAKER) (test code = 437) NEUTROPHILS ABSOLUTE COUNT 7.56 K/ L 1.56-6.13 H (BEAKER) (test code = 670) LYMPHOCYTES ABSOLUTE COUNT 0.57 K/ L 1.18-3.74 L (BEAKER) (test code = 414) MONOCYTES ABSOLUTE COUNT (BEAKER) 0.76 K/ L 0.24-0.36 H (test code = 415) EOSINOPHILS ABSOLUTE COUNT 0.00 K/ L 0.04-0.36 L (BEAKER) (test code = 416) BASOPHILS ABSOLUTE COUNT (BEAKER) 0.01 K/ L 0.01-0.08 (test code = 417) IMMATURE GRANULOCYTES-RELATIVE 0 % 0-1 PERCENT (BEAKER) (test code = 2801) RAD, CHEST, 1 VIEW, NON [id number] 01:09:00Reason for exam:->postopShould this be performed at the bedside?->Yes [facility] : 1930 Sex: FFINAL REPORT Chest one view. Clinical history: postop Comparison: Ch est radiograph 02/25/2007. Technique: A single frontal view of the chest was obtained. Findings: Thecardiac silhouette is mildly enlarged. The aorta is tortuous and atherosclerotic. There is a left coronary artery stent. There is a calcified right mediastinal lymph node. There is no focal pulmonary co nsolidation, pleural effusion or pneumothorax. There is no pulmonary edema. The osseous structures are demineralized. There are mild degenerative changes of the bilateral shoulders. There is spondylosis deformans. Impression:Mild cardiomegaly.No pulmonary edema or focal pulmonary consolidation. Signed: Angel Sexton Verified Date/Time: 07/08/2020 01:09:12 XR chest 1 view portable / [id number] 01:09:00Interface, External Ris In - 07/08/2020 1:11 AM CSTFINAL REPORT Chest one view. Clinical history: postop Comparison: Chest radiograph 02/25/2007. Technique: A single frontal view of the chest was obtained. Findings: The cardiac silhouette is mildly enlarged. The aorta is tortuous and atherosclerotic. There is a left coronary artery stent. There is a calcified right mediastinal lymph node. There is no focal pulmonary consolidation, pleural effusion or pneumothorax. There is no pulmonary edema. The osseous structures are demineralized. There are mild degenerative changes of the bilateral shoulders. There is spondylosis deformans. Impression:Mild cardiomegaly.No pulmonary edema or focal pulmonary consolidation. Signed: Angel Sexton Verified Date/Time: 07/08/2020 01 :09:12 [facility]POCT-GLUCOSE [id number] 21:35:00 Test Item Value Reference Range Interpretation Comments POC-GLUCOSE METER 182 mg/dL 70-110 H : TESTED A T [facility] 6720 (BEAKER) (test code = MARA KEEN RI, 1083) 15861: Aerospace Engineer/Techni carlos ID = [id number] for ROSI GIBSON CREATININE, RANDOM [id number] 18:03:00 Test Item Value Reference Range Interpretation Comments CREATININE URINE (BEAKER) (test 106.6 mg/dL code = 375) Reference Range: No NormalsOperator ID - FSESODIUM, RANDOM [id number] 18:03:00 Test Item Value Reference Range Interpretation Comments SODIUM URINE (BEAKER) (test code = 34 meq/L 243) Reference Range: No NormalsOperator ID - FSEBlood gas, [id number] 17:23:00 Test Item Value Reference Range Interpretation Comments pH, Arterial (test code = 7.21 7.35-7.45 L 2744-1) pCO2, Arterial (test code 52 35- 45 mm Hg H = 2018-8) pO2, Arterial (test code = 193 80- 90 mm Hg H 2703-7) O2 Sat, Arterial (test 99.0 % 96-97 H code = 2708-6) HCO3, Arterial (test code 20 mmol/L 21-29 L = 1960-4) Base Excess, Arterial -7.2 mmol/L -2-3 L (test code = 1925-7) Patient Temperature (test 37.0 code = 8310-5) FIO2 (test code = 1819) 100 SILVER (test code = SILVER) FiO2 50% temp 36.4FiO2 50% temp 36.4FiO2 50% temp 36.4FiO2 50% temp 36.4FiO2 50% temp 36.4 Lab Interpretation (test Abnormal code = 59015-2) [facility] HospitalCalcium, [id number] 17:23:00 Test Item Value Reference Range Interpretation Comments Calcium, Ion (test code = 1993-3) 1.11 mmol/L 1.12-1.27 L pH, Blood (test code = 02019-1) 7.21 Lab Interpretation (test code = Abnormal 09029-7) [facility] HospitalHGB/HCT (H&H)-Stat [id number] 17:23:00 Test Item Value Reference Range Interpretation Comments Hemoglobin (test code = 8.3 12.0- 15.0 GM/DL L 786-4) Hematocrit (test code = 24.0 % 36-45 L 4544-3) SILVER (test code = SILVER) FiO2 50% temp 36.4FiO2 50% temp 36.4FiO2 50% temp 36.4FiO2 50% temp 36.4FiO2 50% temp 36.4 Lab Interpretation (test Abnormal code = 56986-4) [facility] HospitalGlucose-Stat [id number] 17:23:00 Test Item Value Reference Range Interpretation Comments Glucose (test code = 125 mg/dL 70-110 H 2345-7) SILVER (test code = SILVER) FiO2 50% temp 36.4FiO2 50% temp 36.4FiO2 50% temp 36.4FiO2 50% temp 36.4FiO2 50% temp 36.4 Lab Interpretation (test Abnormal code = 44145-1) [facility]Stat [id number] 17:23:00 Test Item Value Reference Range Interpretation Comments Sodium (test code = 2951-2) 142 meq/L 136-145 SILVER (test code = SILVER) FiO2 50% temp 36.4FiO2 50% temp 36.4FiO2 50% temp 36.4FiO2 50% temp 36.4FiO2 50% temp 36.4 Lab Interpretation (test Normal code = 85720-7) [facility] HospitalPotassium-Stat [id number] 17:23:00 Test Item Value Reference Range Interpretation Comments Potassium (test code = 4.5 meq/L 3.6-5.5 2823-3) SILVER (test code = SILVER) FiO2 50% temp 36.4FiO2 50% temp 36.4FiO2 50% temp 36.4FiO2 50% temp 36.4FiO2 50% temp 36.4 Lab Interpretation (test Normal code = 34122-5) [facility] HospitalCALCIUM, [id number] 17:23:00 Test Item Value Reference Range Interpretation Comments CALCIUM IONIZED (BEAKER) (test 1.11 mmol/L 1.12-1.27 L code = 698) PH, BLOOD (BEAKER) (test code = 7.21 1810) SODIUM NA-STAT [id number] 17:23:00 Test Item Value Reference Range Interpretation Comments SODIUM (BEAKER) (test code = 381) 142 meq/L 136-145 FiO2 50% temp 36.4FiO2 50% temp 36.4FiO2 50% temp 36.4FiO2 50% temp 36.4FiO2 50% temp 36.4POTASSIUM-STAT [id number] 17:23:00 Test Item Value Reference Range Interpretation Comments POTASSIUM (BEAKER) (test code = 4.5 meq/L 3.6-5.5 379) FiO2 50% temp 36.4FiO2 50% temp 36.4FiO2 50% temp 36.4FiO2 50% temp 36.4FiO2 50% temp 36.4BLOOD GAS, [id number] 17:23:00 Test Item Value Reference Range Interpretation Comments PH ARTERIAL (BEAKER) (test code = 7.21 7.35-7.45 L 383) PCO2 ARTERIAL (BEAKER) (test code 52 mm Hg 35-45 H = 384) PO2 ARTERIAL (BEAKER) (test code 193 mm Hg 80-90 H = 385) O2 SATURATION ARTERIAL (BEAKER) 99.0 % 96.0-97.0 H (test code = 386) HCO3 ARTERIAL (BEAKER) (test code 20 mmol/L 21-29 L = 388) BASE EXCESS ARTERIAL (BEAKER) -7.2 mmol/L -2.0-3.0 L (test code = 387) PATIENT TEMPERATURE (BEAKER) 37.0 (test code = 1818) FIO2 (BEAKER) (test code = 1819) 100.0 FiO2 50% temp 36.4FiO2 50% temp 36.4FiO2 50% temp 36.4FiO2 50% temp 36.4FiO2 50% temp 36.4GLUCOSE-STAT [id number] 17:23:00 Test Item Value Reference Range Interpretation Comments GLUCOSE RANDOM (BEAKER) (test code 125 mg/dL 70-110 H = 652) FiO2 50% temp 36.4FiO2 50% temp 36.4FiO2 50% temp 36.4FiO2 50% temp 36.4FiO2 50% temp 36.4HGB/HCT (H&H) - STAT [id number] 17:23:00 Test Item Value Reference Range Interpretation Comments HEMOGLOBIN (BEAKER) (test code = 8.3 GM/DL 12.0-15.0 L 410) HEMATOCRIT (BEAKER) (test code = 24.0 % 36.0-45.0 L 411) FiO2 50% temp 36.4FiO2 50% temp 36.4FiO2 50% temp 36.4FiO2 50% temp 36.4FiO2 50% temp 36.4SARS-COV2/RT-PCR ([facility])2020-07-07 15:12:00 Test Item Value Reference Range Interpretation Comments SARS-COV2/RT-PCR (test Negative Not Detected, Negative, code = 5403881) See external report for linked test SARS-COV-2 PERFORMING LAB [facility] MELISSA (test code = 2717257) Negative result for this test determines that SARS-CoV-2 RNA was not present in the specimen above the Limit of Detection (LOD). However, Negative results do not preclude SARS-CoV-2 infection and should not be used as the sole basis for treatment or patient management decisions. Negative results mustbe combined with clinical observations, patient history, and epidemiological information. A false negative result may occur if a specimen is improperly collected, transported or handled. A false negative result should be considered if patient's recent exposures or clinical presentation indicate that COVID-19 (SARS-CoV-2) is likely and diagnostic tests for other causes of illness are negative. Re-testing should be considered in cases of suspected false negatives.The limit of detection for this assay is 800 copies/mL.This SARS CoV-2 test is a real-time RT-PCR test intended for the qualitative detection of nucleic acid from SARS-CoV-2 in a nasopharyngeal swab specimen collected from individuals suspected of COVID-19 by their healthcare provider.This test has not been Food and Drug [...] is revoked under Section 564(g) of the Act.Fact Sheet for Healthcare Providers:https://www.[employer].com/sites/default/files/product/documents/Fact_Teo malloryo_XQ_Uctlhtbwt_Twly_XPRU-CpK-4.pdfFact Sheet for Healthcare Patients:https://www.[employer].Zhengedai.com/sites/default/files/product/ documents/Muek_Itnsm_Pwtbjsip_Vcxt_APGE-NkW-1.pdfPerforming Laboratory:[facility], [place] [address]LKGRDOX B12 AND [id number] 14:08:00 Test Item Value Reference Range Interpretation Comments VITAMIN B12 (BEAKER) (test code = 409 pg/mL 213-816 774) FOLATE (BEAKER) (test code = 362) 16.40 ng/mL >=7.00 Aerospace Engineer ID - CARLOS MUrinalysis Microscopic [id number] 13:34:00 Test Item Value Reference Range Interpretation Comments RBC, UA (test code = 6 /HPF 70603-9) WBC, UA (test code = 69 /HPF 5821-4) Bacteria, UA (test code = Many 32074-7) Mucus (test code = 8247-9) Few Squam Epithel, UA (test 5 /HPF code = 18653-0) Amorphous Crystals (test Rare code = 34244-2) SILVER (test code = SILVER) Aerospace Engineer ID - tech [facility] [id number] 13:34:00 Test Item Value Reference Range Interpretation Comments RBC UA (BEAKER) (test code = 519) 6 /HPF WBC UA (BEAKER) (test code = 520) 69 /HPF BACTERIA (BEAKER) (test code = 517) Many MUCUS (BEAKER) (test code = 1574) Few SQUAMOUS EPITHELIAL (BEAKER) (test 5 /HPF code = 516) AMORPHOUS CRYSTALS (BEAKER) (test Rare code = 1584) Aerospace Engineer ID - techUrinalysis with Microscopic If [id number] 13:33:00 Test Item Value Reference Range Interpretation Comments Color, UA (test code = Yellow 5778-6) Clarity, UA (test code = Cloudy 5767-9) Specific [place], UA (test 1.017 1.001-1.035 code = 5811-5) pH, UA (test code = 6.0 5.0-8.0 5803-2) Protein, UA (test code = 600 mg/dL Negative A 66254-0) Glucose, UA (test code = 100 mg/dL Negative A 365) Ketones, UA (test code = Negative Negative 2514-8) Bilirubin, UA (test code = Negative Negative 29576-2) Blood, UA (test code = Moderate Negative A 66558-2) Nitrite, UA (test code = Positive Negative A 5802-4) Leukocytes, UA (test code Small Negative A = 5799-2) Urobilinogen, UA (test 0.2 mg/dL 0.2-1 code = 93766-4) Specimen Source (test code = 2795) SILVER (test code = SILVER) Aerospace Engineer ID - [auto] Lab Interpretation (test Abnormal code = 34630-1) [facility] IF [id number] 13:33:00 Test Item Value Reference Range Interpretation Comments COLOR (BEAKER) (test code = 470) Yellow CLARITY (BEAKER) (test code = 469) Cloudy SPECIFIC GRAVITY UA (BEAKER) (test 1.017 1.001-1.035 code = 468) PH UA (BEAKER) (test code = 467) 6.0 5.0-8.0 PROTEIN UA (BEAKER) (test code = 600 mg/dL Negative A 464) GLUCOSE UA (BEAKER) (test code = 100 mg/dL Negative A 365) KETONES UA (BEAKER) (test code = Negative Negative 371) BILIRUBIN UA (BEAKER) (test code = Negative Negative 462) BLOOD UA (BEAKER) (test code = 461) Moderate Negative A NITRITE UA (BEAKER) (test code = Positive Negative A 465) LEUKOCYTE ESTERASE UA (BEAKER) Small Negative A (test code = 466) UROBILINOGEN UA (BEAKER) (test code 0.2 mg/dL 0.2-1.0 = 463) SOURCE(BEAKER) (test code = 2795) Aerospace Engineer ID - [auto][id number] 13:27:00 Test Item Value Reference Range Interpretation Comments Potassium (test code = 5.6 meq/L 3.5-5.1 H Speci men 2823-3) slightly hemolyzed SILVER (test code = SILVER) Aerospace Engineer ID - CARLOS M Lab Interpretation Abnormal (test code = 31247-6) [id number]:27[facility]00 Test Item Value Reference Range Interpretation Comments POTASSIUM (BEAKER) 5.6 meq/L 3.5-5.1 H Specimen slightly (test code = 379) hemolyzed Aerospace Engineer ID - CARLOS MPOCT-GLUCOSE [id number] 11:43:00 Test Item Value Reference Range Interpretation Comments POC-GLUCOSE METER 128 mg/dL 70-110 H : TESTED A T [facility] 6720 (BEAKER) (test code = [facility], 1538) 48600: Aerospace Engineer/Techni carlos ID = [id number] for Barb Moura POCT-GLUCOSE [id number] 10:38:00 Test Item Value Reference Range Interpretation Comments POC-GLUCOSE METER 133 mg/dL 70-110 H : TESTED A T [facility] 6720 (BEAKER) (test code = [facility], 1538) 12363: Aerospace Engineer/Techni carlos ID = [id number] for Maite Owens BASIC METABOLIC [id number] 08:24:00 Test Item Value Reference Range Interpretation Comments SODIUM (BEAKER) 144 meq/L 136-145 (test code = 381) POTASSIUM (BEAKER) 5.3 meq/L 3.5-5.1 H (test code = 379) CHLORIDE (BEAKER) 113 meq/L 98-107 H (test code = 382) CO2 (BEAKER) (test 23 meq/L 22-29 code = 355) BLOOD UREA NITROGEN 38 mg/dL 7-21 H (BEAKER) (test code = 354) CREATININE (BEAKER) 2.60 mg/dL 0.57-1.25 H (test code = 358) GLUCOSE RANDOM 148 mg/dL 70-105 H (BEAKER) (test code = 652) CALCIUM (BEAKER) 8.2 mg/dL 8.4-10.2 L (test code = 697) EGFR (BEAKER) (test 17 mL/min/1.73 ESTIMA DAT GFR IS code = 1092) sq m NOT ACCURATE CREATININE CLEARANCE IN PREDICTING GLOMERULAR FILTRATION RATE . ESTIMATED GFR I S NOT APPLICABLE FOR DIALYSIS PATIEN TS. Aerospace Engineer ID - CARLOS MHepatic function [id number] 08:22:00 Test Item Value Reference Range Interpretation Comments Protein, Total (test code 5.9 6.0- 8.3 gm/dL L = 2885-2) Albumin (test code = 2.9 g/dL 3.5-5 L 80576-0) Total Bilirubin (test code 0.6 mg/dL 0.2-1.2 = 1975-2) Bilirubin, Direct (test 0.3 mg/dL 0.1-0.5 code = 1968-7) Alkaline Phosphatase (test 80 U/L 40-150 code = 6768-6) AST (test code = 1920-8) 19 U/L 5-34 ALT (test code = 1742-6) 17 U/L 6-55 SILVER (test code = SILVER) Aerospace Engineer ID - CARLOS M Lab Interpretation (test Abnormal code = 61123-5) [id number] 08:22:00 Test Item Value Reference Range Interpretation Comments MAGNESIUM (BEAKER) (test code = 2.1 mg/dL 1.6-2.6 627) Aerospace Engineer ID - CARLOS EPATIC FUNCTION [id number] 08:22:00 Test Item Value Reference Range Interpretation Comments TOTAL PROTEIN (BEAKER) (test code = 5.9 gm/dL 6.0-8.3 L 770) ALBUMIN (BEAKER) (test code = 1145) 2.9 g/dL 3.5-5.0 L BILIRUBIN TOTAL (BEAKER) (test code 0.6 mg/dL 0.2-1.2 = 377) BILIRUBIN DIRECT (BEAKER) (test 0.3 mg/dL 0.1-0.5 code = 706) ALKALINE PHOSPHATASE (BEAKER) (test 80 U/L 40-150 code = 346) AST (SGOT) (BEAKER) (test code = 19 U/L 5-34 353) ALT (SGPT) (BEAKER) (test code = 17 U/L 6-55 347) Aerospace Engineer ID - CARLOS MType and screen, [id number] 06:30:00 Test Item Value Reference Range Interpretation Comments ABO/RH AUTOMATED (BEAKER) (test B POSITIVE code = 2260) Ab Scrn (test code = 890-4) NEGATIVE [facility], [id number] 06:23:00 Test Item Value Reference Range Interpretation Comments Rh Factor (test code = 2589) POS ABO Grouping (test code = 2588) [facility] & AUTO [id number] 05:50:00 Test Item Value Reference Range Interpretation Comments WHITE BLOOD CELL COUNT (BEAKER) 7.8 K/ L 3.5-10.5 (test code = 775) RED BLOOD CELL COUNT (BEAKER) 3.00 M/ L 3.93-5.22 L (test code = 761) HEMOGLOBIN (BEAKER) (test code = 9.5 GM/DL 11.2-15.7 L 410) HEMATOCRIT (BEAKER) (test code = 30.6 % 34.1-44.9 L 411) MEAN CORPUSCULAR VOLUME (BEAKER) 102.0 fL 79.4-94.8 H (test code = 753) MEAN CORPUSCULAR HEMOGLOBIN 31.7 pg 25.6-32.2 (BEAKER) (test code = 751) MEAN CORPUSCULAR HEMOGLOBIN CONC 31.0 GM/DL 32.2-35.5 L (BEAKER) (test code = 752) RED CELL DISTRIBUTION WIDTH 13.8 % 11.7-14.4 (BEAKER) (test code = 412) PLATELET COUNT (BEAKER) (test 186 K/CU MM 150-450 code = 756) MEAN PLATELET VOLUME (BEAKER) 11.6 fL 9.4-12.3 (test code = 754) NUCLEATED RED BLOOD CELLS 0 /100 WBC 0-0 (BEAKER) (test code = 413) NEUTROPHILS RELATIVE PERCENT 71 % (BEAKER) (test code = 429) LYMPHOCYTES RELATIVE PERCENT 17 % (BEAKER) (test code = 430) MONOCYTES RELATIVE PERCENT 10 % (BEAKER) (test code = 431) EOSINOPHILS RELATIVE PERCENT 2 % (BEAKER) (test code = 432) BASOPHILS RELATIVE PERCENT 1 % (BEAKER) (test code = 437) NEUTROPHILS ABSOLUTE COUNT 5.54 K/ L 1.56-6.13 (BEAKER) (test code = 670) LYMPHOCYTES ABSOLUTE COUNT 1.31 K/ L 1.18-3.74 (BEAKER) (test code = 414) MONOCYTES ABSOLUTE COUNT (BEAKER) 0.78 K/ L 0.24-0.36 H (test code = 415) EOSINOPHILS ABSOLUTE COUNT 0.14 K/ L 0.04-0.36 (BEAKER) (test code = 416) BASOPHILS ABSOLUTE COUNT (BEAKER) 0.04 K/ L 0.01-0.08 (test code = 417) IMMATURE GRANULOCYTES-RELATIVE 0 % 0-1 PERCENT (BEAKER) (test code = 2801) [id number] 05:44:00 Test Item Value Reference Range Interpretation Comments Protime (test code = 14.0 11.9- 14.2 5902-2) seconds INR (test code = 1.12 <=5.90 6301-6) PTT (test code = 27.8 22.5- 36.0 61282-5) seconds SILVER (test code = SILVER) Effective 11/12/2018: PT Reference Range ChangeNew: 11.9-14.2 Previous: 11.7-14.7 RECOMMENDED COUMADIN/WARFARIN INR THERAPY RANGESSTANDARD DOSE: 2.0-3.0 Includes: PROPHYLAXIS for venous thrombosis, systemic embolization; TREATMENT for venous thrombosis and/or pulmonary embolus.HIGH RISK: Target INR is 2.5-3.5 for patients wiht mechanical heart valves. Lab Interpretation Normal (test code = 39032-9) [facility]/[id number] 05:44:00 Test Item Value Reference Range Interpretation Comments PROTIME (BEAKER) (test code = 14.0 seconds 11.9-14.2 759) INR (BEAKER) (test code = 370) 1.12 <=5.90 PARTIAL THROMBOPLASTIN TIME 27.8 seconds 22.5-36.0 (BEAKER) (test code = 760) Effective 11/12/2018: PT Reference Range ChangeNew: 11.9-14.2 Previous: 11.7- 14.7RECOMMENDED COUMADIN/WARFARIN INR THERAPY RANGESSTANDARD DOSE: 2.0-3.0 Includes: PROPHYLAXIS for venous thrombosis, systemic embolization; TREATMENT for venous thrombosis and/or pulmonary embolus.HIGH RISK: Target INR is2.5-3.5 for patients wiht mechanical heart valves.
[2020-07-12] MEDS: HYDROCODONE/APAP 5/325 MG TAB PO PRN (21:50)
[2020-07-12 22:25] LABS: Urine Appearance CLOUDY; Urine Bilirubin NEGATIVE (NEG); Urine Blood 2+ (NEG); Urine Color YELLOW; Urine Glucose TRACE (NEG); Urine Protein 3+ (NEG); Urine Specific Gravity 1.015 (1.005-1.030); Urine Urobilinogen 0.2 mg/dL (0.2-1.0); Urine pH 5.5 (5.0-7.0)
[2020-07-12 22:53] LABS: Urine Bacteria 20-50 /HPF (<20); Urine Coarse Granular Casts 0-5 /LPF (NONE SEEN); Urine RBC <5 /HPF (NONE SEEN); Urine Urothelial Cells <5 /HPF (NONE SEEN)
[2020-07-12 23:26] VITALS: BMI 23.2
[2020-07-12] MEDS ORDERED: ACETAMINOPHEN 325 MG TABLET PO PRN (23:53)
[2020-07-12] MEDS ORDERED: BISACODYL 10 MG RECTAL SUPP RC PRN (23:54)
[2020-07-13] MEDS ORDERED: POLYETHYL GLY 3350 17 GM/DOSE PO PRN (00:01)
[2020-07-13] MEDS ORDERED: DOCUSATE NA/SENNA CONC 1 TAB PO PRN (00:02)
[2020-07-13] MEDS ORDERED: D50W 25 GM/50 ML SYRINGE IV PRN (05:58)
[2020-07-13] MEDS ORDERED: GLUCAGON 1 MG/VIAL IM PRN (05:58)
[2020-07-13 06:01] LABS: Absolute Lymphocytes (CBC) 1.9 K/uL (0.7-4.9); Basophils % 0.7 % (0-1.3); Hematocrit 23.1 % (36.0-45.0); Lymphocytes % 21.4 % (15.3-44.8); RBC Red Blood Cell Count 2.39 M/uL (3.86-4.86)
[2020-07-13 06:18] LABS: Magnesium 2.3 mg/dL (1.8-2.4); Prealbumin 10.4 mg/dL (20-40)
[2020-07-13] MEDS: INSULIN -REGULAR HUMAN 50 UNIT/0.5 ML ML SQ SCH ×4 (07:30→20:35)
[2020-07-13] MEDS ORDERED: ramipriL 5 MG CAP PO SCH (08:00)
[2020-07-13] MEDS ORDERED: PROMOD 30 ML DOSE PO SCH (08:00)
[2020-07-13] MEDS: HEPARIN 5000 UNIT/ML 1 ML VIAL SQ SCH ×2 (08:00→18:59)
[2020-07-13] MEDS: HYDROCODONE/APAP 5/325 MG TAB PO PRN (08:46)
[2020-07-13] MEDS: ASPIRIN EC 81 MG TAB PO SCH (08:48)
[2020-07-13] MEDS: PARoxetine HCL 10 MG TAB PO SCH (08:48)
[2020-07-13] MEDS: FERROUS SULFATE 325 MG TAB PO SCH (08:48)
[2020-07-13] MEDS: LIDOCAINE 4% PATCH TOP SCH (08:48)
[2020-07-13] MEDS: CETIRIZINE HCL 5 MG TABLET PO SCH (08:48)
[2020-07-13] MEDS: OXYBUTYNIN ER 5 MG TAB PO SCH (08:48)
[2020-07-13] MEDS: PIOGLITAZONE 15 MG TAB PO SCH (08:49)
[2020-07-13] MEDS: FE SULF/FA/VIT B COMP & C TAB PO SCH (08:49)
[2020-07-13] MEDS ORDERED: HEPARIN 5000 UNIT/ML 1 ML VIAL SQ SCH (09:00)
--- NOTE | 2020-07-13 09:22 | RAD REPORT ---
EXAM DESCRIPTION: RAD - Chest Single View - 07/13/2020 9:01 am CLINICAL HISTORY: increase coughing COMPARISON: July 06 TECHNIQUE: AP portable chest image was obtained 07/13/2020 9:01 am . FINDINGS: No new mass or consolidation. The baseline prominent interstitial pattern has not clearly changed. Heart size is normal range and stable. Pulmonary vasculature within normal limits. Chest fin dings are accentuated slightly by a more shallow inspiratory effort. No measurable pleural effusion a nd no pneumothorax. No acute bony abnormality seen. No acute aortic findings suspected. IMPRESSION: No focal pneumonia changes are present. Patient has a stable but prominent baseline interstitial pattern that could potentially mask mild int erstitial edema or infiltrate.
[2020-07-13] MEDS ORDERED: NA CHLORIDE 0.9% 250 ML ONE (11:32)
[2020-07-13] MEDS ORDERED: ACETAMINOPHEN 325 MG TABLET PO PRN (12:34)
--- NOTE | 2020-07-13 14:17 | CON ---
Date of Consultation: 07/13/2020 Reason For Consult: Acute on chronic renal insufficiency. History Of Present Illness: Ms. Ferrer is an 89-year-old female with past medical history signifi cant for history of type 2 diabetes, dementia, and possibly chronic renal insufficiency, presented to [facility] after she had a fall and was admitted with a left femur fracture. She was in her normal state of health until the morning of July 06 when she reportedly lost her balance comin g in from the patio and fell, was not observed, and family heard her crying and came over and saw diann t she was sitting in her recliner chair. She could not walk and she was brought into the emergency r oom for further evaluation. She underwent arthroplasty on 07/07 and has been transferred to [facility] floor for further rehabilitation and improving her range of movements. Her hospital course was complicated by UTI with altered mental status and acute on chronic renal insu fficiency, unknown what her baseline renal function is at. Past Medical History: Significant for history of type 2 diabetes, dementia, coronary artery disease status post PCI. Past Surgical History: Status post hip arthroplasty on July 07, 2020. Social History: She is an active smoker. She was living with her family prior to this admission. N o history of alcohol or drug use reported. Family History: Unable to be obtained. Physical Examination: Vital signs: At this time are showing temperature of 98.5, pulse rate of 83, respiratory rate of 18, and blood pressure 159/75. General: She appears in no acute distress. HEENT: She has atraumatic head. Lungs: Auscultation of the lungs revealed bilateral equal air entry. Heart: Auscultation of the heart revealed regular rate and rhythm. Abdomen: Soft and nontender. Extremities: Showed no evidence of edema. Laboratory Data: Showing creatinine of 2.6, sodium of 144, potassium of 4, chloride of 114, and bica rb of 21. CBC showed hemoglobin of 7.6, hematocrit of 23.1, and platelet count of 190. Current Medications: Include aspirin 81 mg a day, Dulcolax rectally, cetirizine daily, hydrocodone 3 times a day, oral iron, oxybutynin, pioglitazone, and ramipril 5 mg a day Impression: 1.Left hip fracture status post arthroplasty. The patient is receiving physical therapy and occupat ional therapy. 2.Pgozq-ou-wifgzof renal insufficiency. Baseline renal function unknown. We will get records from her nvgrgdcl-hm-sct and evaluate her baseline renal function. Creatinine is currently at 2.6. She w ould not benefit from any KEESHA inhibitor at this time because of advanced nature of the renal insuffic iency. We will discontinue that and we will put her on amlodipine as needed for her blood pressure a nd monitor her. 3.Anemia secondary to underlying renal insufficiency and also secondary to recent blood loss from he r surgery. The patient is on anticoagulation with heparin 5000 units b.i.d. and she is also on baby aspirin. We will go ahead and get her started on Epogen and monitor her iron saturations. 4.Underlying dementia. 5.Hypertension. 6.Pain, currently on hydrocodone along with bowel regimen. Plan: Overall, the patient is doing okay at this time. Continue all medications and plan of care. Discontinue the ramipril and start her on amlodipine as needed and will follow up closely. MARCIAL/JOSE RAFAEL Voice ID: [id number] Report ID: [id number]
[2020-07-13] MEDS: EPOETIN ALFA 10,000 UNIT/ML VIAL SQ SCH (15:01)
[2020-07-13 18:33] LABS: Hematocrit 26.7 % (36.0-45.0)
[2020-07-13] MEDS: GABAPENTIN 100 MG CAP PO SCH (20:34)
[2020-07-13] MEDS: carvediloL 6.25 MG TAB PO SCH (20:34)
[2020-07-13] MEDS: DOCUSATE NA/SENNA CONC 1 TAB PO SCH (20:34)
[2020-07-13] MEDS: MELATONIN 3 MG TABLET PO PRN (20:35)
[2020-07-13] MEDS: ACETAMINOPHEN 500 MG TAB PO PRN (20:35)
[2020-07-13] MEDS: JUVEN PACKET PO SCH (22:16)
--- NOTE | 2020-07-14 02:39 | PAPE ---
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 Shaun Johnson M.D. ADMISSION DIAGNOSIS: LEFT FEMORAL FRACTURE ONSET DATE 07/06/2020 POST-ADMISSION FUNCTIONAL/MEDICAL STATUS: - Bladder Same accident frequency: Ind - No accidents in the past 7 days - Bowel Same accident frequency: Ind - No accidents in the past 7 days - Walking Same score based on distance walked: 0(N/A) Same score based on distance walked: 1(<=50ft) - Wheelchair Same score based on distance traveled: 0(N/A) STATUS CHANGE EVALUATION: No change in Functional or Medical Status is identified compared with Pre-Admission screening. PATIENT NEEDS CLOSE MEDICAL SUPERVISION BY A REHABILITATION PHYSICIAN FOR: Coordination of Treatment Team PATIENT REQUIRES 24X7 REHAB NURSING FOR MEDICAL AND FUNCTIONAL MGT. OF THE FOLLOWING DEFICITS: Disease Management Medication Management Patient/Family Education Providing Safe Environment PATIENT REQUIRES INTENSIVE, COORDINATED INTERDISCIPLINARY APPROACH TO REHAB: Arranging Home Equipment/Services Discharge Planning Family Intervention/Training Swatch Cutter/Case Management LIST OF IDENTIFIED AND POTENTIAL PROBLEMS: Alteration in leisure activities Bladder, Incontinence Bowel, Incontinence Infection, Actual or Potential Mobility Impaired Pain, Alteration in Comfort Self Care Deficit Skin Integrity, Actual or Potential Urinary Tract Infection (UTI), Actual or Potential PATIENT COULD BE AT RISK FOR COMPLICATIONS FROM ADVERSE MEDICAL CONDITIONS DUE TO HIS/HER COMORBIDITI ES AND THE RIGORS OF THE INTENSIVE REHABILLITATION PROGRAM. METHODS OR INTERVENTIONS TO AVOID COMPLIC ATIONS INCLUDE: - Infection Clinical staff to assess and manage the signs and symptoms of infection including fever, redness, war mth, etc. - Urinary Tract Infection - Falls Patient will be evaluated for Fall Precautions and will be placed on Fall Precautions as indicated pe r protocol. - Skin Breakdown Nursing will assess skin daily using assessment tool and will place on Skin Breakdown Precautions as indicated per protocol. - Pain Clinical staff may employ non-medication methods such as massage, distraction, decrease stimulus, etc . as needed. Clinical staff will assess patient's pain level every shift per protocol to assess and e nsure pain management effectiveness. Medications will be given and the pain level re-assessed. PRELIMINARY PLAN OF CARE: - Physical Therapy Patient needs Physical Therapy for a daily minimum of 1.5 hours at least 5 out of 7 days, to improve: Mobility, Strengthening, Transfers, Stretching, ROM, Endurance, Ability to manage stairs, Gait, and Balance. - Speech Therapy Patient needs Speech Therapy for a daily minimum of 0.5 hours at least 5 out of 7 days, to improve: S wallowing, Cognition, Language Skills, and Compensatory Strategies. - Rehabilitation Nursing Patient requires 24x7 Rehabilitation Nursing for: Pain Issues, Identifying and preventing risk factor s, Monitoring and reporting current medical conditions, Assisting with ambulation and transfer, Ada ting with all ADL-s, Teaching patients about disease process and medications, Family teaching, Provid ing safe environment, Bowel and Bladder Issues, Skin Integrity, and Medication Management. Patient needs Swatch Cutter and/or Case Management for: Discharge Planning, Arranging Home Equipmen t or Services, and Family Interventions. - Dietary and Nutrition Services Patient needs Dietary and Nutrition Services for: Adequate Nutrition, Nutritional Supplements, and Nu tritional Education. - Occupational Therapy Patient needs Occupational Therapy for a daily minimum of 1.5 hours at least 5 out of 7 days, to impr ove Activities of Daily Living, including: Eating, Grooming, Bathing, Dressing, Toileting, Toilet Tra nsfers, Community Reintegration, Higher functional activities, Adaptive Equipment, Splinting, Househo ld Tasks, and Other activities as determined. QI SCORES: - Self-Care A. Eating 03-Partial/moderate assistance B. Oral hygiene 03-Partial/moderate assistance C. Toileting hygiene E. Shower/bathe self 02-Substantial/maximal assistance F. Upper body dressing 03-Partial/moderate assistance G. Lower body dressing 02-Substantial/maximal assistance H. Putting on/taking off footwear 88-Not attempted due to medical condition or safety concerns - Mobility A. Roll left and right 03-Partial/moderate assistance B. Sit to lying 03-Partial/moderate assistance C. Lying to sitting on side of bed 03-Partial/moderate assistance D. Sit to stand 03-Partial/moderate assistance E. Chair/pnz-al-kpcpc transfer 02-Substantial/maximal assistance F. Toilet transfer G. Car transfer 88-Not attempted due to medical condition or safety concerns I. Walk 10 feet 03-Partial/moderate assistance J. Walk 50 feet with two turns 88-Not attempted due to medical condition or safety concerns K. Walk 150 feet 88-Not attempted due to medical condition or safety concerns L. Walking 10 feet on uneven surfaces 88-Not attempted due to medical condition or safety concerns M. 1 step (curb) 88-Not attempted due to medical condition or safety concerns N. 4 steps 88-Not attempted due to medical condition or safety concerns O. 12 steps 88-Not attempted due to medical condition or safety concerns P. Picking up object 88-Not attempted due to medical condition or safety concerns R. Wheel 50 feet with two turns 88-Not attempted due to medical condition or safety concerns S. Wheel 150 feet 88-Not attempted due to medical condition or safety concerns - Bladder and Bowel Bladder continence Bowel continence - Endurance Fair - Balance Fair - Safety Awareness Fair POTENTIAL FUNCTIONAL GOALS FOR PATIENT TO ACHIEVE BY DISCHARGE: - Safety Precaution Patient will remain free from falls or injury at time of discharge. - Bed Mobility Patient will perform bed mobility at 4-Jocelyn level of assistance. - Transfers Patient will complete transfers from bed to chair at 4-Jocelyn level of assistance. - Mobility Patient will ambulate 150 ft with 4-Jocelyn level of assistance with RW. PATIENT REHAB POTENTIAL Luisa CHEUNG is able and expected to receive 3 hours of individualized therapy daily on at least 5 of every 7 days Luisa CHEUNG's prognosis for significant practical improvement within a reasonable period of time deborah ears Good Expected level of measurable improvement will be of a practical value to Luisa CHEUNG's functional ca pacity or adaptations to impairments Has a viable Discharge Plan Medically appropriate; condition is sufficiently stable to participate in intensive rehab program DISCHARGE PLAN: - Estimated Length of Stay (days) 14. - Consensus on plan Discharge plan has been discussed with primary caregiver. Patient/Family is in agreement with the gavino n. Primary caregiver is in agreement with the plan. - Patient/Family Goals Return home independently. - Planned Living Setting Upon Discharge Home, to live with Family/Relatives. Transitional Living. CONCLUSION ON REHABILITATION NECESSITY: I have evaluated patient's pre-admission functional status and, comparing it to the patient's post-ad mission functional status now, I conclude that the pre-admission assessment was accurate. Patient's c ondition on admission supports the medical necessity of admission to IR[facility]. It is safe to proceed with patient's therapy program. 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
--- NOTE | 2020-07-14 02:39 | R.HP ---
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 board/care, assisted living, fdc, transitional living) PRE-HOSPITAL LIVING WITH Family/Relatives ENCOUNTER PHYSICIAN: Dr. Shaun Johnson M.D. 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 HOME TYPE AND DETAILS: Type of home: single family house # of levels in the residence: 1 # of steps within the residence: 0 # of steps to enter the residence: 0 ONSET DATE: 07/06/2020 PRIMARY DIAGNOSIS-RELATED SURGERIES: ARTHROPLASTY, LEFT HIP HISTORY OF PRESENT ILLNESS (HPI): Pt. is a 89 yo Right-handed female of unknown race. On 07/06/2020 she was admitted to [facility] with diagnosis LEFT FEMORAL FRACTURE. Her impairment category is Orthopaedic Disorders 08 - Unilateral Hip Fracture (08.11). Pre-morbidly, Pt. was independent/mod-I in Self-Care, Endurance, Communication, Locomotion, and Safet y Awareness; and she had good Sphincter Control, Transfers Control, and Social Cognition. Currently, she has deficits of Balance, Transfers Control, Sphincter Control, Self-Care, and Locomoti on. Pt. is now referred to [facility] for acute in-patient rehabilitation in order to maximize patient's functional independence in activities of daily living, strength, ROM, and mobi lity. Patient has realistic goal of being discharged at assistance level 7-Ind to reside at Home with Fami ly/Relatives. Sallie Ferrer is a 89 -year- old female that lives independently at home. She lives in a single story home with family help when needed. She has a history of active smoking with medical h/o dementia, DM2, CAD s/p PCI x2 ( 10 yers ago). She admitted with a left femur fracture. She had arthroplasty 07/07/20, hospital course c/b ANKITA and delirium likely 2/2 UTI. Shes working well with PT and has made a great impovedment. The patient would most definitely benefit from acute inpatient rehab and has become severely debilitated and unable to live at her prior level of activity at home getting her stronger to be back living at home independently is our goal. It is reasonable and necessary for the patient to come to acute inpatient rehab for approximately 7-10 days in order to return to her prior level of care. She is now being transferred to [facility] Inpatient rehabilitation and is medically stable with relatively stable labs. She is now medically stable but in need of 24 hour nursing, doctor supervision and oversight while receiving active and ongoing intensive (PT, OT therapy a day/15 hours per week and receive care with intensive interdisciplinary approach. COVID-19 screening performed; spoke with patient via phone. Patient denies new onset of fever, cough, difficulty breathing, sore throat, body aches and non-allergy nasal congestion in the past 24 hours. Patient denies travel outside of [place] in the past 14 days. Patient denies any contact with someone who has a confirmed diagnosis of or is under investigation for COVID-19 in the past 14 days. Patient has been tested negative for COVID- 19. MEDICATION ALLERGIES: No Known Drug Allergies (NKDA) ENVIRONMENTAL ALLERGIES: - Substance Allergies None Known - Other Allergies None Known PAST MEDICAL HISTORY: ACTIVE SMOKER W MEDICAL H/O DEMENTIA DM2 CAD S/P PCI X2 (10 YEARS AGO) UTI HTN PAST SURGICAL HISTORY: ARTHROPLASTY OF LEFT FEMUR SOCIAL HISTORY: - Home Living Family/Relatives REVIEW OF SYSTEMS: - Gen No Chills No Fatigue No Fever - Eyes No Double Vision No itchiness - ENMT No Difficulty Swallowing - CVS No Chest Discomfort No Chest Pain Fatigue No Weight Gain - Resp No Cough No Shortness of Breath - GI Continent No Abdominal Pain Constipation No Diarrhea - Continent No Kidney Pain No Painful Urination No Urinary Urgency - MSK No Joint Pain Muscle Cramps Stiffness - Skin No Itching No Rash No Suspicious Lesions - Neuro Coordination Difficulty No Difficulty with Concentration No Memory Loss No Seizures Weakness - Psych No Anxiety No Depression No HIV Exposure No Persistent Infections No Seasonal Allergies - Endo No Cold/Heat Intolerance No Excessive Hunger No Excessive Thirst No Excessive Urination PHYSICAL EXAM - Gen Alert and awake Lying in bed No apparent distress Oriented to: person, time, and place - Skin No skin breakdown. Normacephalic - Eyes No abnormalities - ENMT No abnormalities - Neck No abnormalities No cervical adenopathy - CVS RRR - Chest No abnormalities - Resp Clear to auscultation - Abd + bowel sounds - GI Soft Deferred - No abnormalities - Ext Left hip surgical site has good hemostasis. - MSK 4+/5 weakness in both lower extremity. - Neuro 4/5 strength left lower extremity. - Psych No abnormalities VITAL SIGNS Temperature: 98.5 F BP: 159/75 Pulse: 83 Resp: 16 NURSING: - Shower allowing shower - Skin care per protocol PRECAUTIONS: - Posterior Hip Precaution No adduction across midline No external rotation No hip flexion >90 degrees No internal rotation No wheel chair propulsion ACTIVITIES OOB only with supervision QI SCORES: - Self-Care A. Eating 03-Partial/moderate assistance B. Oral hygiene 03-Partial/moderate assistance C. Toileting hygiene E. Shower/bathe self 02-Substantial/maximal assistance F. Upper body dressing 03-Partial/moderate assistance G. Lower body dressing 02-Substantial/maximal assistance H. Putting on/taking off footwear 88-Not attempted due to medical condition or safety concerns - Mobility A. Roll left and right 03-Partial/moderate assistance B. Sit to lying 03-Partial/moderate assistance C. Lying to sitting on side of bed 03-Partial/moderate assistance D. Sit to stand 03-Partial/moderate assistance E. Chair/lgu-ke-yxblv transfer 02-Substantial/maximal assistance F. Toilet transfer G. Car transfer 88-Not attempted due to medical condition or safety concerns I. Walk 10 feet 03-Partial/moderate assistance J. Walk 50 feet with two turns 88-Not attempted due to medical condition or safety concerns K. Walk 150 feet 88-Not attempted due to medical condition or safety concerns L. Walking 10 feet on uneven surfaces 88-Not attempted due to medical condition or safety concerns M. 1 step (curb) 88-Not attempted due to medical condition or safety concerns N. 4 steps 88-Not attempted due to medical condition or safety concerns O. 12 steps 88-Not attempted due to medical condition or safety concerns P. Picking up object 88-Not attempted due to medical condition or safety concerns R. Wheel 50 feet with two turns 88-Not attempted due to medical condition or safety concerns S. Wheel 150 feet 88-Not attempted due to medical condition or safety concerns - Bladder and Bowel Bladder continence Bowel continence - Endurance Fair - Balance Fair - Safety Awareness Fair CURRENT FUNC. DEFICITS: Self-Care, Mobility, Endurance, Balance, and Safety Awareness MEDICATIONS: - Other See attached MAR (Medication Administration Record) ASSESSMENT: Pt. is a 89 yo Right-handed female of unknown race.On 07/06/2020 [address] [facility] with diagnosis LEFT FEMORAL FRACTURE.Her impairment category is Orthopaedic Disorders 08 - Unilater al Hip Fracture (01.25).Pre-morbidly, Pt. was independent/mod-I in Self-Care, Endurance, Communicatio n, Locomotion, and Safety Awareness; and she had good Sphincter Control, Transfers Control, and Socia l Cognition.Currently, she has deficits of Balance, Transfers Control, Sphincter Control, Self-Care, and Locomotion.Pt. is now referred to [facility] for acute in-patient rehabili tation in order to maximize patient's functional independence in activities of daily living, strength , ROM, and mobility.- Rehab Goal Patient has realistic goal of being discharged at assistance level 7-Ind to reside at Home with Fami ly/Relatives. Sallie Ferrer is a 89 -year- old female that lives independently at home. She lives in a single story home with family help when needed. She has a history of active smoking with medical h/o dementia, DM2, CAD s/p PCI x2 ( 10 yers ago). She admitted with a left femur fracture. She had arthroplasty 07/07/20, hospital course c/b ANKITA and delirium likely 2/2 UTI. Shes working well with PT and has made a great impovedment. The patient would most definitely benefit from acute inpatient rehab and has become severely debilitated and unable to live at her prior level of activity at home getting her stronger to be back living at home independently is our goal. It is reasonable and necessary for the patient to come to acute inpatient rehab for approximately 7-10 days in order to return to her prior level of care. She is now being transferred to [facility] Inpatient rehabilitation and is medically stable with relatively stable labs. She is now medically stable but in need of 24 hour nursing, doctor supervision and oversight while receiving active and ongoing intensive (PT, OT therapy a day/15 hours per week and receive care with intensive interdisciplinary approach. COVID-19 screening performed; spoke with patient via phone. Patient denies new onset of fever, cough, difficulty breathing, sore throat, body aches and non-allergy nasal congestion in the past 24 hours. Patient denies travel outside of [place] in the past 14 days. Patient denies any contact with someone who has a confirmed diagnosis of or is under investigation for COVID-19 in the past 14 days. Patient has been tested negative for COVID- 19.REHAB PLAN: - Physical Therapy Decreased range of motion - to improve, our physical therapists will perform initial evaluation of pt 's status upon admission and devise an individualized program for increasing patient's Range of Motio n. Gait dysfunction - to improve, our physical therapists will perform initial evaluation of pt's status upon admission and devise an individualized program for Gait Training, and Wheel Chair mobility Inability to transfer - to improve, our physical therapists will perform initial evaluation of pt's s tatus upon admission and devise an individualized program for Bed mobility Need for home safety evaluation - to improve, our physical therapists will perform initial evaluation of pt's status upon admission and devise an individualized program for Home Evaluation Need in caregiver upon discharge - to improve, our physical therapists will perform initial evaluatio n of pt's status upon admission and devise an individualized program for Caregiver Training New precaution - to improve, our physical therapists will perform initial evaluation of pt's status u ashley admission and devise an individualized program for Patient precaution education Poor balance - to improve, our physical therapists will perform initial evaluation of pt's status upo n admission and devise an individualized program for Balance Training Weakness - to improve, our physical therapists will perform initial evaluation of pt's status upon ad mission and devise an individualized program for Aquatic Therapy, Neuromuscular Reeducation, and Stre ngthening Achieving independence - to improve, our physical therapists will perform initial evaluation of pt's status upon admission and devise an individualized program for Community Reintegration Activities - Occupational Therapy ADL deficits - to improve, our occupation therapists will perform initial evaluation of pt's status u ashley admission and devise an individualized program for Bathing, Bed mobility, Community Reintegration , Cooking, Dressing, Eating, Fine Motor Skills, Grooming, Homemaking, Kitchen Mobility, Laundry, Pooja ent Education, Safety Awareness, Splinting - Positioning, Transfers(Toilet, Tub, Shower), and Wheel C hair Management Need for adult live in caregiver - to improve, our occupation therapists will perform initial evaluation of pt's s tatus upon admission and devise an individualized program for Caregiver Training Weakness - to improve, our occupation therapists will perform initial evaluation of pt's status upon admission and devise an individualized program for Aquatic Therapy, Balance, Endurance, UE ROM, and U E strengthening MEDICAL PLAN: - Anterior Hip Precaution No abduction No active extension No adduction across midline No external rotation No hip flexion >90 degrees No internal rotation - Diet - Liquid Texture Start Regular - Tube Feed Start N/A - Diet Type Start Regular - Posterior Hip Precaution No adduction across midline No external rotation No hip flexion >90 degrees No internal rotation No wheel chair propulsion - Weight Bearing Precaution WBAT left LE - Skin care per protocol - Other See attached MAR (Medication Administration Record) - Diet - Solid Texture Regular - Shower shower DISCHARGE PLAN: - Estimated Length of Stay (days) 14. - Consensus on plan Discharge plan has been discussed with primary caregiver. Patient/Family is in agreement with the gavino n. Primary caregiver is in agreement with the plan. - Patient/Family Goals Return home independently. - Planned Living Setting Upon Discharge Home, to live with Family/Relatives. Transitional Living. 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
[2020-07-14] MEDS: HEPARIN 5000 UNIT/ML 1 ML VIAL SQ SCH ×2 (06:19→18:43)
[2020-07-14] MEDS: INSULIN -REGULAR HUMAN 50 UNIT/0.5 ML ML SQ SCH ×4 (07:30→19:50)
[2020-07-14] MEDS: ACETAMINOPHEN 500 MG TAB PO PRN (09:13)
[2020-07-14] MEDS: NICOTINE 14 MG/PAT TD SCH (09:15)
[2020-07-14] MEDS: CETIRIZINE HCL 5 MG TABLET PO SCH (09:16)
[2020-07-14] MEDS: FE SULF/FA/VIT B COMP & C TAB PO SCH (09:17)
[2020-07-14] MEDS: PARoxetine HCL 10 MG TAB PO SCH (09:17)
[2020-07-14] MEDS: GABAPENTIN 100 MG CAP PO SCH ×2 (09:17→19:48)
[2020-07-14] MEDS: carvediloL 6.25 MG TAB PO SCH ×2 (09:17→19:49)
[2020-07-14] MEDS: FERROUS SULFATE 325 MG TAB PO SCH (09:17)
[2020-07-14] MEDS: OXYBUTYNIN ER 5 MG TAB PO SCH (09:18)
[2020-07-14] MEDS: PIOGLITAZONE 15 MG TAB PO SCH (09:18)
[2020-07-14] MEDS: ASPIRIN EC 81 MG TAB PO SCH (09:18)
[2020-07-14] MEDS: LIDOCAINE 4% PATCH TOP SCH (09:21)
[2020-07-14] MEDS: JUVEN PACKET PO SCH ×2 (09:22→19:48)
[2020-07-14] MEDS: TRAMADOL HCL 50 MG TAB PO PRN (11:14)
[2020-07-14] MEDS: EPOETIN ALFA 10,000 UNIT/ML VIAL SQ SCH (15:30)
--- NOTE | 2020-07-14 18:08 | R.PN ---
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 SUBJECTIVE: Pt denied any Shortness of Breath. Pt denied any depression. Her hypertension is managed by the renal service. Her Hgb improved to 8.7 from 7.6 without transfusio n. She is on hemocyte plus and ferrous sulfate. 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 UA trac e esterase, WBC 5-10, bacteria 20-50. Ambulated 500' with rolling walker and contact guard assistance. VITAL SIGNS Temperature: 97.3 F BP: 181/61 Pulse: 78 Resp: 16 MEDICATION ALLERGIES: No Known Drug Allergies (NKDA) ENVIRONMENTAL ALLERGIES: - Substance Allergies None Known - Other Allergies None Known NURSING: - Shower allowing shower - Skin care per protocol PRECAUTIONS: - Posterior Hip Precaution No adduction across midline No external rotation No hip flexion >90 degrees No internal rotation No wheel chair propulsion ACTIVITIES OOB only with supervision THERAPIES: - Dietary and Nutrition Adequate Nutrition. Nutritional Education. Nutritional Supplements. PHYSICAL EXAM - Gen Alert and awake Lying in bed No apparent distress Oriented to: person, time, and place - Skin No skin breakdown. Normacephalic - Eyes No abnormalities - ENMT No abnormalities - Neck No abnormalities No cervical adenopathy - CVS RRR - Chest No abnormalities - Resp Clear to auscultation - Abd + bowel sounds - GI Soft Deferred - No abnormalities - Ext Left hip surgical site has good hemostasis. - MSK 4+/5 weakness in both lower extremity. - Neuro 4/5 strength left lower extremity. - Psych No abnormalities ASSESSMENT: Pt. is a 89 yo Right-handed female of unknown race.On 07/06/[address] [facility] with diagnosis LEFT FEMORAL FRACTURE.Her impairment category is Orthopaedic Disorders 08 - Unilater al Hip Fracture (08.11).Pre-morbidly, Pt. was independent/mod-I in Self-Care, Endurance, Communicatio n, Locomotion, and Safety Awareness; and she had good Sphincter Control, Transfers Control, and Socia l Cognition.Currently, she has deficits of Balance, Transfers Control, Sphincter Control, Self-Care, and Locomotion.Pt. is now referred to [facility] for acute in-patient rehabili tation in order to maximize patient's functional independence in activities of daily living, strength , ROM, and mobility.- Rehab Goal Patient has realistic goal of being discharged at assistance level 7-Ind to reside at Home with Fami ly/Relatives. MDM/PLAN: - Physical Therapy Decreased range of motion - to improve, our physical therapists will perform initial evaluation of p t's status upon admission and devise an individualized program for increasing patient's Range of Ramses on. Gait dysfunction - to improve, our physical therapists will perform initial evaluation of pt's statu s upon admission and devise an individualized program for Gait Training, and Wheel Chair mobility Inability to transfer - to improve, our physical therapists will perform initial evaluation of pt's status upon admission and devise an individualized program for Bed mobility Need for home safety evaluation - to improve, our physical therapists will perform initial evaluatio n of pt's status upon admission and devise an individualized program for Home Evaluation Need in caregiver upon discharge - to improve, our physical therapists will perform initial evaluati on of pt's status upon admission and devise an individualized program for Caregiver Training New precaution - to improve, our physical therapists will perform initial evaluation of pt's status upon admission and devise an individualized program for Patient precaution education Poor balance - to improve, our physical therapists will perform initial evaluation of pt's status up on admission and devise an individualized program for Balance Training Weakness - to improve, our physical therapists will perform initial evaluation of pt's status upon a dmission and devise an individualized program for Aquatic Therapy, Neuromuscular Reeducation, and Str engthening Achieving independence - to improve, our physical therapists will perform initial evaluation of pt's status upon admission and devise an individualized program for Community Reintegration Activities - Occupational Therapy ADL deficits - to improve, our occupation therapists will perform initial evaluation of pt's status upon admission and devise an individualized program for Bathing, Bed mobility, Community Reintegratio n, Cooking, Dressing, Eating, Fine Motor Skills, Grooming, Homemaking, Kitchen Mobility, Laundry, Pat ient Education, Safety Awareness, Splinting - Positioning, Transfers(Toilet, Tub, Shower), and Wheel Chair Management Need for lpn care manager - to improve, our occupation therapists will perform initial evaluation of pt's status upon admission and devise an individualized program for Caregiver Training Weakness - to improve, our occupation therapists will perform initial evaluation of pt's status upon admission and devise an individualized program for Aquatic Therapy, Balance, Endurance, UE ROM, and UE strengthening - Other See attached MAR (Medication Administration Record) - Anterior Hip Precaution No abduction No active extension No adduction across midline No external rotation No hip flexion >90 degrees No internal rotation - Diet - Liquid Texture Continue Regular - Tube Feed Continue N/A - Diet Type Continue Regular - Posterior Hip Precaution No adduction across midline No external rotation No hip flexion >90 degrees No internal rotation No wheel chair propulsion - Weight Bearing Precaution WBAT left LE - Skin care per protocol - Diet - Solid Texture Continue Regular - Shower allowing shower FUNCTIONAL STATUS: UPDATED AT WEEKLY TEAM CONFERENCE - Bladder Same accident frequency: 7-Ind - No accidents in the past 7 days - Bowel Same accident frequency: 7-Ind - No accidents in the past 7 days - Walking Same score based on distance walked: 0(N/A) Same score based on distance walked: 1(<=50ft) - Wheelchair Same score based on distance traveled: 0(N/A) FUNCTIONAL STATUS: - Self-Care A. Eating Christian B. Grooming sup C. Bathing sup D. Dressing - Upper Jocelyn E. Dressing - Lower modA F. Toileting sup - Sphincter Control G. Bladder control Jocelyn H. Bowel control Jocelyn - Transfers Control I. Bed/Chair/Wheelchair Jocelyn J. Toilet Jocelyn K. Tub/Shower modA - Locomotion L. Walk/Wheelchair (B) Jocelyn M. Stairs maxA - Communication N. Comprehension (B) Christian O. Expression (B) Christian - Social Cognition P. Social Interaction Christian Q. Problem Solving sup R. Memory Christian - Endurance Fair - Balance Fair - Safety Awareness Fair QI SCORES: - Self-Care A. Eating 03-Partial/moderate assistance B. Oral hygiene 03-Partial/moderate assistance C. Toileting hygiene E. Shower/bathe self 02-Substantial/maximal assistance F. Upper body dressing 03-Partial/moderate assistance G. Lower body dressing 02-Substantial/maximal assistance H. Putting on/taking off footwear 88-Not attempted due to medical condition or safety concerns - Mobility A. Roll left and right 03-Partial/moderate assistance B. Sit to lying 03-Partial/moderate assistance C. Lying to sitting on side of bed 03-Partial/moderate assistance D. Sit to stand 03-Partial/moderate assistance E. Chair/dhi-cv-arntc transfer 02-Substantial/maximal assistance F. Toilet transfer G. Car transfer 88-Not attempted due to medical condition or safety concerns I. Walk 10 feet 03-Partial/moderate assistance J. Walk 50 feet with two turns 88-Not attempted due to medical condition or safety concerns K. Walk 150 feet 88-Not attempted due to medical condition or safety concerns L. Walking 10 feet on uneven surfaces 88-Not attempted due to medical condition or safety concerns M. 1 step (curb) 88-Not attempted due to medical condition or safety concerns N. 4 steps 88-Not attempted due to medical condition or safety concerns O. 12 steps 88-Not attempted due to medical condition or safety concerns P. Picking up object 88-Not attempted due to medical condition or safety concerns R. Wheel 50 feet with two turns 88-Not attempted due to medical condition or safety concerns S. Wheel 150 feet 88-Not attempted due to medical condition or safety concerns - Bladder and Bowel Bladder continence Bowel continence - Endurance Fair - Balance Fair - Safety Awareness Fair CURRENT [facility]. 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
--- NOTE | 2020-07-14 18:30 | PN ---
Date of Progress Note: 07/14/2020 Subjective: The patient was seen and examined. She is sleeping. She is doing very well. Physical Examination: Vital Signs: Have been reviewed and are stable. General: She appears in no acute distress. Lungs: Clear to auscultation. Abdomen: Soft. Extremities: Showed no evidence of edema. Current blood pressures have been reviewed and seem to be slightly elevated. Laboratory Data: Has been reviewed. Her CBC improved with hemoglobin improving to 8.7, hematocrit 2 6.7. Current Medications: Have been reviewed in detail. Impression: 1.Acute on chronic renal insufficiency, currently KEESHA inhibitors discontinued. 2.Left hip fracture, status post arthroplasty, undergoing rehab. 3.Anemia secondary to chronic renal insufficiency. Received a dose of Epogen yesterday. Hemoglobin has improved. We will continue to monitor. Continue p.o. iron. 4.Hypertension, possibly uncontrolled secondary to pain. The patient has been currently on carvedil ol. We will add more medications if need to, but for now, we will hold off. 5.Type 2 diabetes, on Actos. Plan: Overall, the patient's renal function is slightly worse than baseline. Baseline renal functio n seems to be creatinine with 1.7 with underlying diabetic nephropathy. Continue p.r.n. Epogen for anemia. We will order labs for valentin booth and we will follow up. MARCIAL/JOSE RAFAEL Voice ID: [id number] Report ID: [id number]
[2020-07-14] MEDS: MELATONIN 3 MG TABLET PO PRN (19:49)
[2020-07-14] MEDS: DOCUSATE NA/SENNA CONC 1 TAB PO SCH (19:49)
[2020-07-15 06:15] LABS: Absolute Lymphocytes (CBC) 1.5 K/uL (0.7-4.9); Basophils % 0.7 % (0-1.3); Hematocrit 23.3 % (36.0-45.0); Lymphocytes % 24.3 % (15.3-44.8); MPV 9.8 fL (7.6-11.3); RBC Red Blood Cell Count 2.41 M/uL (3.86-4.86)
[2020-07-15] MEDS: HEPARIN 5000 UNIT/ML 1 ML VIAL SQ SCH ×2 (06:26→19:07)
[2020-07-15 06:51] LABS: Potassium 4.6 mmol/L (3.5-5.1)
[2020-07-15] MEDS: INSULIN -REGULAR HUMAN 50 UNIT/0.5 ML ML SQ SCH ×4 (07:30→21:00)
[2020-07-15] MEDS: JUVEN PACKET PO SCH ×3 (08:00→20:00)
[2020-07-15] MEDS: TRAMADOL HCL 50 MG TAB PO PRN (08:36)
[2020-07-15] MEDS: ASPIRIN EC 81 MG TAB PO SCH (08:38)
[2020-07-15] MEDS: FERROUS SULFATE 325 MG TAB PO SCH (08:38)
[2020-07-15] MEDS: PIOGLITAZONE 15 MG TAB PO SCH (08:38)
[2020-07-15] MEDS: carvediloL 6.25 MG TAB PO SCH ×2 (08:38→21:09)
[2020-07-15] MEDS: CETIRIZINE HCL 5 MG TABLET PO SCH (08:39)
[2020-07-15] MEDS: OXYBUTYNIN ER 5 MG TAB PO SCH (08:39)
[2020-07-15] MEDS: PARoxetine HCL 10 MG TAB PO SCH (08:39)
[2020-07-15] MEDS: FE SULF/FA/VIT B COMP & C TAB PO SCH (08:39)
[2020-07-15] MEDS: GABAPENTIN 100 MG CAP PO SCH ×2 (08:39→21:07)
--- NOTE | 2020-07-15 09:41 | P.RH.PN ---
Estimated Length of Stay: 12 Expected Discharge Date: 07/23/20 Discharge Disposition Plan: Home Family Support: Yes Residential Goal: Mobility, Transfers, Self Care Vital Signs: Last Vital Signs Temp 96.8 F 07/15/20 08:56 Pulse 63 07/15/20 08:56 Resp 14 07/15/20 08:56 BP 168/56 H 07/15/20 08:56 Pulse Ox 100 07/15/20 08:56 Laboratory: Laboratory Last Values WBC 6.10 K/uL (4.3-10.9) D 07/15/20 05:54 RBC 2.41 M/uL (3.86-4.86) L 07/15/20 05:54 Hgb 7.5 g/dL (12.0-15.0) L* 07/15/20 05:54 Hct 23.3 % (36.0-45.0) L 07/15/20 05:54 MCV 96.8 fL (80-100) 07/15/20 05:54 MCH 31.2 pg (27.0-35.0) 07/15/20 05:54 MCHC 32.2 g/dL (32.0-36.0) 07/15/20 05:54 RDW 13.3 % (12.1-15.2) 07/15/20 05:54 Plt Count 222 K/uL (152-406) 07/15/20 05:54 MPV 9.8 fL (7.6-11.3) 07/15/20 05:54 Neutrophils % 58.7 % (41.7-73.7) 07/15/20 05:54 Lymphocytes % 24.3 % (15.3-44.8) 07/15/20 05:54 Monocytes % 11.7 % (3.3-12.3) 07/15/20 05:54 Eosinophils % 4.6 % (0-4.4) H 07/15/20 05:54 Basophils % 0.7 % (0-1.3) 07/15/20 05:54 Absolute Neutrophils 3.6 K/uL (1.8-8.0) 07/15/20 05:54 Absolute Lymphocytes 1.5 K/uL (0.7-4.9) 07/15/20 05:54 Absolute Monocytes 0.7 K/uL (0.1-1.3) 07/15/20 05:54 Absolute Eosinophils 0.3 K/uL (0-0.5) 07/15/20 05:54 Absolute Basophils 0.0 K/uL (0-0.5) 07/15/20 05:54 Sodium 144 mmol/L (136-145) 07/15/20 05:54 Potassium 4.6 mmol/L (3.5-5.1) 07/15/20 05:54 Chloride 116 mmol/L (98-107) H 07/15/20 05:54 Carbon Dioxide 23 mmol/L (21-32) 07/15/20 05:54 BUN 47 mg/dL (7-18) H 07/15/20 05:54 Creatinine 2.47 mg/dL (0.55-1.3) H 07/15/20 05:54 Estimated GFR 18 mL/min (=/>90) L 07/15/20 05:54 Glucose 100 mg/dL (74-106) 07/15/20 05:54 POC Glucose 105 mg/dL (65-120) 07/15/20 07:36 Calcium 7.7 mg/dL (8.5-10.1) L 07/15/20 05:54 Magnesium 2.3 mg/dL (1.8-2.4) 07/13/20 05:41 Albumin 2.0 g/dL (3.4-5.0) L 07/13/20 05:41 Prealbumin 10.4 mg/dL (20-40) L 07/13/20 05:41 Urine Color Yellow 07/12/20 21:30 Urine Appearance Cloudy 07/12/20 21:30 Urine pH 5.5 (5.0-7.0) 07/12/20 21:30 Ur Specific [place] 1.015 (1.005-1.030) 07/12/20 21:30 Glucose (UA)(Auto) Trace (NEG) 07/12/20 21:30 Urine Ketones Trace (NEG) 07/12/20 21:30 Urine Blood 2+ (NEG) H 07/12/20 21:30 Urine Nitrite Negative (NEG) 07/12/20 21:30 Urine Bilirubin Negative (NEG) 07/12/20 21:30 Urine Urobilinogen 0.2 mg/dL (0.2-1.0) 07/12/20 21:30 Ur Leukocyte Esterase Trace (NEG) H 07/12/20 21:30 Urine RBC <5 /HPF (NONE SEEN) 07/12/20 21:30 Urine WBC 5-10 /HPF (<5) H 07/12/20 21:30 Ur Squamous Epith Cells <5 /HPF (NONE SEEN) 07/12/20 21:30 Ur Urothelial Cells <5 /HPF (NONE SEEN) 07/12/20 21:30 Urine Bacteria 20-50 /HPF (<20) H 07/12/20 21:30 Hyaline Casts 0-5 /LPF (NONE SEEN) 07/12/20 21:30 Coarse Granular Casts 0-5 /LPF (NONE SEEN) 07/12/20 21:30 Urine Culture Reflexed Not needed 07/12/20 21:30 Urine Total Protein 3+ (NEG) H 07/12/20 21:30 SARS-CoV-2 RNA (RT-PCR) Negative (NEGATIVE) 07/12/20 22:00 ABO/Rh B POSITIVE 07/13/20 Unknown ABO/Rh Cancelled 07/13/20 Unknown Solid Phase Ab Screen Cancelled 07/13/20 Unknown Crossmatch See Detail 07/13/20 06:57 Weight: 123 lb 1.6 oz Wound Present: Yes Closed Surgical Incision Present: No Negative Pressure Wound Therapy Present: No Physician Update: Her Hgb has fallen again to 7.5. Will give a unit of PRBCs. She is doing well with therapy. Chest x-ray shows no pneumonia. Functional Improvement: pt is demonstrating functional progress. She is more alert and less confused today, which helped tremendously. pt continues to require skilled PT services to address her functional deficits and enhance functional mobility and safety. 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 Please see the Rehabilitation Signature page for all necessary signatures.
[2020-07-15] MEDS: LIDOCAINE 4% PATCH TOP SCH (11:01)
[2020-07-15] MEDS: NICOTINE 14 MG/PAT TD SCH (11:01)
[2020-07-15] MEDS: ACETAMINOPHEN 500 MG TAB PO PRN (12:49)
[2020-07-15] MEDS ORDERED: NA CHLORIDE 0.9% 250 ML IV SCH (15:00)
[2020-07-15] MEDS: cloNIDine HCL 0.1 MG TAB PO PRN (15:40)
[2020-07-15] MEDS: ramipriL 5 MG CAP PO SCH (15:50)
[2020-07-15] MEDS: CRANBERRY FRUIT EXTRACT 200 MG CAP PO SCH (21:07)
[2020-07-15] MEDS: DOCUSATE NA/SENNA CONC 1 TAB PO SCH (21:08)
[2020-07-15 21:10] LABS: Hematocrit 26.2 % (36.0-45.0)
[2020-07-15] MEDS: MELATONIN 3 MG TABLET PO PRN (21:12)
[2020-07-16] MEDS: HEPARIN 5000 UNIT/ML 1 ML VIAL SQ SCH ×2 (07:30→20:25)
[2020-07-16] MEDS: INSULIN -REGULAR HUMAN 50 UNIT/0.5 ML ML SQ SCH ×4 (07:30→20:39)
[2020-07-16] MEDS: JUVEN PACKET PO SCH ×2 (08:00→20:00)
[2020-07-16] MEDS ORDERED: ramipriL 5 MG CAP PO SCH (08:00)
[2020-07-16] MEDS: ACETAMINOPHEN 500 MG TAB PO PRN (09:25)
[2020-07-16] MEDS: carvediloL 6.25 MG TAB PO SCH ×2 (09:26→20:38)
[2020-07-16] MEDS: CETIRIZINE HCL 5 MG TABLET PO SCH (09:26)
[2020-07-16] MEDS: PARoxetine HCL 10 MG TAB PO SCH (09:27)
[2020-07-16] MEDS: FERROUS SULFATE 325 MG TAB PO SCH (09:28)
[2020-07-16] MEDS: OXYBUTYNIN ER 5 MG TAB PO SCH (09:28)
[2020-07-16] MEDS: ramipriL 5 MG CAP PO SCH (09:28)
[2020-07-16] MEDS: ASPIRIN EC 81 MG TAB PO SCH (09:28)
[2020-07-16] MEDS: PIOGLITAZONE 15 MG TAB PO SCH (09:28)
[2020-07-16] MEDS: CRANBERRY FRUIT EXTRACT 200 MG CAP PO SCH ×2 (09:28→20:38)
[2020-07-16] MEDS: GABAPENTIN 100 MG CAP PO SCH ×2 (09:29→20:38)
[2020-07-16] MEDS: FE SULF/FA/VIT B COMP & C TAB PO SCH (09:29)
[2020-07-16] MEDS: NICOTINE 14 MG/PAT TD SCH (09:30)
[2020-07-16] MEDS: LIDOCAINE 4% PATCH TOP SCH (09:31)
--- NOTE | 2020-07-16 16:50 | FAST ---
[employer] FORM SHIFT START DATE/TIME: 07/16/2020 07:00 ([employer]) SHIFT END DATE/TIME: 07/16/2020 19:00 ([employer]) NAME SALLIE CHEUNG DATE OF : 1930 DATE OF ADMISSION: 07/12/2020 20:06 ([employer]ER) PHONE: AGE: 89 N# [id number] GENDER: Female ENCOUNTER PHYSICIAN: Dr. Shaun Johnson M.D. ADMISSION DIAGNOSIS: - Orthopaedic Disorders 08 - Unilateral Hip Fracture (08.11) LEFT FEMORAL FRACTURE. EATING: EATING - STEP 1: Does the patient complete the activity by him/herself with no assistance (physical, verbal/nonverbal cueing, setup/clean-up)? No. EATING - STEP 2: Does the patient need only setup/clean-up assistance from one helper? Yes. 1. [id number] ADMISSION PERFORMANCE: Setup or clean-up assistance CODE: 05 ORAL HYGIENE: ORAL HYGIENE - STEP 1: Does the patient complete the activity by him/herself with no assistance (physical, verbal/nonverbal cueing, setup/clean-up)? No. ORAL HYGIENE - STEP 2: Does the patient need only setup/clean-up assistance from one helper? Yes. 1. [id number] ADMISSION PERFORMANCE: Setup or clean-up assistance CODE: 05 TOILETING HYGIENE: TOILETING HYGIENE - STEP 1: Does the patient complete the activity by him/herself with no assistance (physical, verbal/nonverbal cueing, setup/clean-up)? No. TOILETING HYGIENE - STEP 2: Does the patient need only setup/clean-up assistance from one helper? Yes. 1. [id number] ADMISSION PERFORMANCE: Setup or clean-up assistance CODE: 05 BATHING: Not assessed/no information CODE: - DRESSING - UPPER BODY: DRESSING - UPPER BODY - STEP 1: Does the patient complete the activity by him/herself with no assistance (physical, verbal/nonverbal cueing, setup/clean-up)? No. DRESSING - UPPER BODY - STEP 2: Does the patient need only setup/clean-up assistance from one helper? No. DRESSING - UPPER BODY - STEP 3: Does the patient need only verbal/nonverbal cueing or touching/steadying/contact guard assistance fro m one helper? Yes. 1. [id number] ADMISSION PERFORMANCE: Supervision or touching assistance CODE: 04 DRESSING - LOWER BODY: DRESSING - LOWER BODY - STEP 1: Does the patient complete the activity by him/herself with no assistance (physical, verbal/nonverbal cueing, setup/clean-up)? No. DRESSING - LOWER BODY - STEP 2: Does the patient need only setup/clean-up assistance from one helper? No. DRESSING - LOWER BODY - STEP 3: Does the patient need only verbal/nonverbal cueing or touching/steadying/contact guard assistance fro m one helper? Yes. 1. [id number] ADMISSION PERFORMANCE: Supervision or touching assistance CODE: 04 PUTTING ON/TAKING OFF FOOTWEAR: FOOTWEAR - STEP 1: Does the patient complete the activity by him/herself with no assistance (physical, verbal/nonverbal cueing, setup/clean-up)? No. FOOTWEAR - STEP 2: Does the patient need only setup/clean-up assistance from one helper? No. FOOTWEAR - STEP 3: Does the patient need only verbal/nonverbal cueing or touching/steadying/contact guard assistance fro m one helper? Yes. 1. [id number] ADMISSION PERFORMANCE: Supervision or touching assistance CODE: 04 ROLL LEFT AND RIGHT: ROLL LEFT AND RIGHT - STEP 1: Does the patient complete the activity by him/herself with no assistance (physical, verbal/nonverbal cueing, setup/clean-up)? No. ROLL LEFT AND RIGHT - STEP 2: Does the patient need only setup/clean-up assistance from one helper? No. ROLL LEFT AND RIGHT - STEP 3: Does the patient need only verbal/nonverbal cueing or touching/steadying/contact guard assistance fro m one helper? Yes. 1. [id number] ADMISSION PERFORMANCE: Supervision or touching assistance CODE: 04 SIT TO LYING: SIT TO LYING - STEP 1: Does the patient complete the activity by him/herself with no assistance (physical, verbal/nonverbal cueing, setup/clean-up)? No. SIT TO LYING - STEP 2: Does the patient need only setup/clean-up assistance from one helper? No. SIT TO LYING - STEP 3: Does the patient need only verbal/nonverbal cueing or touching/steadying/contact guard assistance fro m one helper? Yes. 1. [id number] ADMISSION PERFORMANCE: Supervision or touching assistance CODE: 04 LYING TO SITTING: LYING TO SITTING ON SIDE OF BED - STEP 1: Does the patient complete the activity by him/herself with no assistance (physical, verbal/nonverbal cueing, setup/clean-up)? No. LYING TO SITTING ON SIDE OF BED - STEP 2: Does the patient need only setup/clean-up assistance from one helper? No. LYING TO SITTING ON SIDE OF BED - STEP 3: Does the patient need only verbal/nonverbal cueing or touching/steadying/contact guard assistance fro m one helper? Yes. 1. [id number] ADMISSION PERFORMANCE: Supervision or touching assistance CODE: 04 SIT TO STAND: SIT TO STAND - STEP 1: Does the patient complete the activity by him/herself with no assistance (physical, verbal/nonverbal cueing, setup/clean-up)? No. SIT TO STAND - STEP 2: Does the patient need only setup/clean-up assistance from one helper? No. SIT TO STAND - STEP 3: Does the patient need only verbal/nonverbal cueing or touching/steadying/contact guard assistance fro m one helper? Yes. 1. [id number] ADMISSION PERFORMANCE: Supervision or touching assistance CODE: 04 TRANSFERS: BED, CHAIR: CHAIR/[id number] TRANSFER - STEP 1: Does the patient complete the activity by him/herself with no assistance (physical, verbal/nonverbal cueing, setup/clean-up)? No. CHAIR/[id number] TRANSFER - STEP 2: Does the patient need only setup/clean-up assistance from one helper? No. CHAIR/[id number] TRANSFER - STEP 3: Does the patient need only verbal/nonverbal cueing or touching/steadying/contact guard assistance fro m one helper? Yes. 1. [id number] ADMISSION PERFORMANCE: Supervision or touching assistance CODE: 04 TRANSFER TOILET: TOILET TRANSFER - STEP 1: Does the patient complete the activity by him/herself with no assistance (physical, verbal/nonverbal cueing, setup/clean-up)? No. TOILET TRANSFER - STEP 2: Does the patient need only setup/clean-up assistance from one helper? No. TOILET TRANSFER - STEP 3: Does the patient need only verbal/nonverbal cueing or touching/steadying/contact guard assistance fro m one helper? Yes. 1. [id number] ADMISSION PERFORMANCE: Supervision or touching assistance CODE: 04 TRANSFERS: CAR: Not assessed/no information CODE: - WALK 10 FEET: Not assessed/no information CODE: - 1 STEP (CURB): Not assessed/no information CODE: - PICKING UP OBJECT: Not assessed/no information CODE: - DOES THE PATIENT USE A WHEELCHAIR/SCOOTER? Q1. DOES THE PATIENT USE A WHEELCHAIR/SCOOTER?: Yes CODE: 1 WHEEL 50 FEET WITH TWO TURNS: WHEEL 50 FEET WITH TWO TURNS - STEP 1: Does the patient complete the activity by him/herself with no assistance (physical, verbal/nonverbal cueing, setup/clean-up)? No. WHEEL 50 FEET WITH TWO TURNS - STEP 2: Does the patient need only setup/clean-up assistance from one helper? No. WHEEL 50 FEET WITH TWO TURNS - STEP 3: Does the patient need only verbal/nonverbal cueing or touching/steadying/contact guard assistance fro m one helper? Yes. 1. [id number] ADMISSION PERFORMANCE: Supervision or touching assistance CODE: 04 INDICATE THE TYPE OF WHEELCHAIR/SCOOTER USED: RR1. INDICATE THE TYPE OF WHEELCHAIR/SCOOTER USED.: Manual CODE: 1 WHEEL 150 FEET: Not assessed/no information CODE: - INDICATE THE TYPE OF WHEELCHAIR/SCOOTER USED: SS1. INDICATE THE TYPE OF WHEELCHAIR/SCOOTER USED.: Manual CODE: 1 BLADDER AND BOWEL: H350. BLADDER CONTINENCE (3-DAY ASSESSMENT PERIOD): Always continent (no documented incontinence) CODE: 0 H400. BOWEL CONTINENCE (3-DAY ASSESSMENT PERIOD): Always continent CODE: 0 SIGNATURE PANEL: The following modified sections: 1. [id number] Admission Performance, 1. [id number] Admission Performance, 1. CQ4423S Admission Performance, 1. NB4201f Admission Performance, 1. OA9905h Admission Performance, 1. IH4478n Admission Performance, 1. GP2237f Admission Performance, 1. FI9578C Admission Performance , 1. [id number] Admission Performance, 1. [id number] Admission Performance, 1. HD4454v Admission Performanc e, 1. OF4079V Admission Performance, 1. [id number] Admission Performance, 1. [id number] Admission Performan ce, 1. [id number] Admission Performance, 1. [id number] Admission Performance, Q1. Does the patient use a wh eelchair/scooter?, 1. [id number] Admission Performance, RR1. Indicate the type of wheelchair/scooter use d., Code, SS1. Indicate the type of wheelchair/scooter used., H350. Bladder Continence (3-day assessm ent period), H400. Bowel Continence (3-day assessment period) were [electronically] signed by Alaina Dinh C.N.A. on Sat Jul 16 2020 16:50:06 GMT-0600 (Central Standard Time)
[2020-07-16] MEDS: DOCUSATE NA/SENNA CONC 1 TAB PO SCH (20:38)
[2020-07-17] MEDS: INSULIN -REGULAR HUMAN 50 UNIT/0.5 ML ML SQ SCH ×4 (07:30→21:00)
[2020-07-17] MEDS: JUVEN PACKET PO SCH ×2 (08:00→20:00)
[2020-07-17] MEDS: HEPARIN 5000 UNIT/ML 1 ML VIAL SQ SCH ×2 (09:00→20:00)
[2020-07-17] MEDS: LIDOCAINE 4% PATCH TOP SCH ×2 (09:41→09:45)
[2020-07-17] MEDS: FE SULF/FA/VIT B COMP & C TAB PO SCH (09:42)
[2020-07-17] MEDS: CRANBERRY FRUIT EXTRACT 200 MG CAP PO SCH ×2 (09:42→20:42)
[2020-07-17] MEDS: NICOTINE 14 MG/PAT TD SCH (09:42)
[2020-07-17] MEDS: CETIRIZINE HCL 5 MG TABLET PO SCH (09:42)
[2020-07-17] MEDS: OXYBUTYNIN ER 5 MG TAB PO SCH (09:42)
[2020-07-17] MEDS: GABAPENTIN 100 MG CAP PO SCH ×2 (09:43→20:42)
[2020-07-17] MEDS: ASPIRIN EC 81 MG TAB PO SCH (09:43)
[2020-07-17] MEDS: carvediloL 6.25 MG TAB PO SCH ×2 (09:43→20:43)
[2020-07-17] MEDS: FERROUS SULFATE 325 MG TAB PO SCH (09:44)
[2020-07-17] MEDS: ACETAMINOPHEN 500 MG TAB PO PRN ×2 (09:44→17:22)
[2020-07-17] MEDS: PARoxetine HCL 10 MG TAB PO SCH (09:44)
[2020-07-17] MEDS: PIOGLITAZONE 15 MG TAB PO SCH (09:44)
[2020-07-17] MEDS: ramipriL 5 MG CAP PO SCH (09:47)
[2020-07-17] MEDS: DOCUSATE NA/SENNA CONC 1 TAB PO SCH (20:43)
[2020-07-18 05:50] LABS: Absolute Lymphocytes (CBC) 1.8 K/uL (0.7-4.9); Basophils % 1.5 % (0-1.3); Hematocrit 27.9 % (36.0-45.0); Lymphocytes % 23.8 % (15.3-44.8); MPV 10.2 fL (7.6-11.3); RBC Red Blood Cell Count 2.96 M/uL (3.86-4.86)
[2020-07-18] MEDS: HEPARIN 5000 UNIT/ML 1 ML VIAL SQ SCH ×2 (06:40→18:13)
[2020-07-18] MEDS: INSULIN -REGULAR HUMAN 50 UNIT/0.5 ML ML SQ SCH ×4 (07:30→20:30)
[2020-07-18] MEDS: JUVEN PACKET PO SCH ×2 (08:00→19:09)
[2020-07-18] MEDS: TRAMADOL HCL 50 MG TAB PO PRN (08:06)
[2020-07-18] MEDS: ASPIRIN EC 81 MG TAB PO SCH (08:07)
[2020-07-18] MEDS: ramipriL 5 MG CAP PO SCH (08:07)
[2020-07-18] MEDS: CETIRIZINE HCL 5 MG TABLET PO SCH (08:07)
[2020-07-18] MEDS: CRANBERRY FRUIT EXTRACT 200 MG CAP PO SCH ×2 (08:07→19:09)
[2020-07-18] MEDS: OXYBUTYNIN ER 5 MG TAB PO SCH (08:07)
[2020-07-18] MEDS: FERROUS SULFATE 325 MG TAB PO SCH (08:08)
[2020-07-18] MEDS: carvediloL 6.25 MG TAB PO SCH ×2 (08:08→19:06)
[2020-07-18] MEDS: PIOGLITAZONE 15 MG TAB PO SCH (08:08)
[2020-07-18] MEDS: PARoxetine HCL 10 MG TAB PO SCH (08:08)
[2020-07-18] MEDS: FE SULF/FA/VIT B COMP & C TAB PO SCH (08:08)
[2020-07-18] MEDS: GABAPENTIN 100 MG CAP PO SCH ×2 (08:08→19:07)
[2020-07-18] MEDS: NICOTINE 14 MG/PAT TD SCH (09:47)
[2020-07-18] MEDS: cloNIDine HCL 0.1 MG TAB PO PRN (12:23)
[2020-07-18] MEDS: ACETAMINOPHEN 500 MG TAB PO PRN (12:24)
--- NOTE | 2020-07-18 17:39 | R.PN ---
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 SUBJECTIVE: Pt denied any Shortness of Breath. Pt denied any depression. Patient states that pain is under control. Ambulated 500' with rolling walker and contact guard assistance. WBC 7.5, Hgb 9.1, glucose 104 - 212, calcium 7.8. VITAL SIGNS Temperature: 97.4 F BP: 116/51 Pulse: 54 Resp: 16 MEDICATION ALLERGIES: No Known Drug Allergies (NKDA) ENVIRONMENTAL ALLERGIES: - Substance Allergies None Known - Other Allergies None Known NURSING: - Shower allowing shower - Skin care per protocol PRECAUTIONS: - Posterior Hip Precaution No adduction across midline No external rotation No hip flexion >90 degrees No internal rotation No wheel chair propulsion ACTIVITIES OOB only with supervision THERAPIES: - Dietary and Nutrition Adequate Nutrition. Nutritional Education. Nutritional Supplements. PHYSICAL EXAM - Gen Alert and awake Lying in bed No apparent distress Oriented to: person, time, and place - Skin No skin breakdown. Normacephalic - Eyes No abnormalities - ENMT No abnormalities - Neck No abnormalities No cervical adenopathy - CVS RRR - Chest No abnormalities - Resp Clear to auscultation - Abd + bowel sounds - GI Soft Deferred - No abnormalities - Ext Left hip surgical site has good hemostasis. - MSK 4+/5 weakness in both lower extremity. - Neuro 4/5 strength left lower extremity. - Psych No abnormalities ASSESSMENT: Pt. is a 89 yo Right-handed female of unknown race.On 07/06/2020 she was admitted to [facility] with diagnosis LEFT FEMORAL FRACTURE.Her impairment category is Orthopaedic Disorders 08 - Unilater al Hip Fracture (08.11).Pre-morbidly, Pt. was independent/mod-I in Self-Care, Endurance, Communicatio n, Locomotion, and Safety Awareness; and she had good Sphincter Control, Transfers Control, and Socia l Cognition.Currently, she has deficits of Balance, Transfers Control, Sphincter Control, Self-Care, and Locomotion.Pt. is now [facility] to [facility] for acute in-patient rehabili tation in order to maximize patient's functional independence in activities of daily living, strength , ROM, and mobility.- Rehab Goal Patient has realistic goal of being discharged at assistance level 7-Ind to reside at Home with Fami ly/Relatives. MDM/PLAN: - Physical Therapy Decreased range of motion - to improve, our physical therapists will perform initial evaluation of p t's status upon admission and devise an individualized program for increasing patient's Range of Ramses on. Gait dysfunction - to improve, our physical therapists will perform initial evaluation of pt's statu s upon admission and devise an individualized program for Gait Training, and Wheel Chair mobility Inability to transfer - to improve, our physical therapists will perform initial evaluation of pt's status upon admission and devise an individualized program for Bed mobility Need for home safety evaluation - to improve, our physical therapists will perform initial evaluatio n of pt's status upon admission and devise an individualized program for Home Evaluation Need in caregiver upon discharge - to improve, our physical therapists will perform initial evaluati on of pt's status upon admission and devise an individualized program for Caregiver Training New precaution - to improve, our physical therapists will perform initial evaluation of pt's status upon admission and devise an individualized program for Patient precaution education Poor balance - to improve, our physical therapists will perform initial evaluation of pt's status up on admission and devise an individualized program for Balance Training Weakness - to improve, our physical therapists will perform initial evaluation of pt's status upon a dmission and devise an individualized program for Aquatic Therapy, Neuromuscular Reeducation, and Str engthening Achieving independence - to improve, our physical therapists will perform initial evaluation of pt's status upon admission and devise an individualized program for Community Reintegration Activities - Occupational Therapy ADL deficits - to improve, our occupation therapists will perform initial evaluation of pt's status upon admission and devise an individualized program for Bathing, Bed mobility, Community Reintegratio n, Cooking, Dressing, Eating, Fine Motor Skills, Grooming, Homemaking, Kitchen Mobility, Laundry, Pat ient Education, Safety Awareness, Splinting - Positioning, Transfers(Toilet, Tub, Shower), and Wheel Chair Management Need for career and guidance counselor - to improve, our occupation therapists will perform initial evaluation of pt's status upon admission and devise an individualized program for Caregiver Training Weakness - to improve, our occupation therapists will perform initial evaluation of pt's status upon admission and devise an individualized program for Aquatic Therapy, Balance, Endurance, UE ROM, and UE strengthening - Other See attached MAR (Medication Administration Record) - Anterior Hip Precaution No abduction No active extension No adduction across midline No external rotation No hip flexion >90 degrees No internal rotation - Diet - Liquid Texture Continue Regular - Tube Feed Continue N/A - Diet Type Continue Regular - Posterior Hip Precaution No adduction across midline No external rotation No hip flexion >90 degrees No internal rotation No wheel chair propulsion - Weight Bearing Precaution WBAT left LE - Skin care per protocol - Diet - Solid Texture Continue Regular - Shower allowing shower FUNCTIONAL STATUS: UPDATED AT WEEKLY TEAM CONFERENCE - Bladder Same accident frequency: 7-Ind - No accidents in the past 7 days - Bowel Same accident frequency: 7-Ind - No accidents in the past 7 days - Walking Same score based on distance walked: 0(N/A) Same score based on distance walked: 1(<=50ft) - Wheelchair Same score based on distance traveled: 0(N/A) FUNCTIONAL STATUS: - Self-Care A. Eating Christian B. Grooming sup C. Bathing sup D. Dressing - Upper Jocelyn E. Dressing - Lower modA F. Toileting sup - Sphincter Control G. Bladder control Jocelyn H. Bowel control Jocelyn - Transfers Control I. Bed/Chair/Wheelchair Jocelyn J. Toilet Jocelyn K. Tub/Shower modA - Locomotion L. Walk/Wheelchair (B) Jocelyn M. Stairs maxA - Communication N. Comprehension (B) Christian O. Expression (B) Christian - Social Cognition P. Social Interaction Christian Q. Problem Solving sup R. Memory Christian - Endurance Fair - Balance Fair - Safety Awareness Fair QI SCORES: - Self-Care A. Eating 03-Partial/moderate assistance B. Oral hygiene 03-Partial/moderate assistance C. Toileting hygiene E. Shower/bathe self 02-Substantial/maximal assistance F. Upper body dressing 03-Partial/moderate assistance G. Lower body dressing 02-Substantial/maximal assistance H. Putting on/taking off footwear 88-Not attempted due to medical condition or safety concerns - Mobility A. Roll left and right 03-Partial/moderate assistance B. Sit to lying 03-Partial/moderate assistance C. Lying to sitting on side of bed 03-Partial/moderate assistance D. Sit to stand 03-Partial/moderate assistance E. Chair/dwn-ol-shkqm transfer 02-Substantial/maximal assistance F. Toilet transfer G. Car transfer 88-Not attempted due to medical condition or safety concerns I. Walk 10 feet 03-Partial/moderate assistance J. Walk 50 feet with two turns 88-Not attempted due to medical condition or safety concerns K. Walk 150 feet 88-Not attempted due to medical condition or safety concerns L. Walking 10 feet on uneven surfaces 88-Not attempted due to medical condition or safety concerns M. 1 step (curb) 88-Not attempted due to medical condition or safety concerns N. 4 steps 88-Not attempted due to medical condition or safety concerns O. 12 steps 88-Not attempted due to medical condition or safety concerns P. Picking up object 88-Not attempted due to medical condition or safety concerns R. Wheel 50 feet with two turns 88-Not attempted due to medical condition or safety concerns S. Wheel 150 feet 88-Not attempted due to medical condition or safety concerns - Bladder and Bowel Bladder continence Bowel continence - Endurance Fair - Balance Fair - Safety Awareness Fair CURRENT [facility]. 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
[2020-07-18] MEDS: DOCUSATE NA/SENNA CONC 1 TAB PO SCH (19:06)
--- NOTE | 2020-07-18 21:16 | P.PN ---
Date of Service: 07/18/20 Vital Signs Temp Pulse Resp BP Pulse Ox 97.2 F 52 15 106/43 L 97 07/18/20 20:09 07/18/20 20:09 07/18/20 20:09 07/18/20 20:09 07/18/20 20:09 Medications Acetaminophen (Acetaminophen 500 Mg Tab) 500 mg PO Q4H PRN PRN Reason: Pain scale 2-4 (Mild) Stop: 08/12/20 12:52 Last Admin: 07/18/20 12:24 Dose: 500 mg Documented by: Aspirin (Aspirin Ec 81 Mg Tab) 81 mg PO DAILY [facility] Stop: 08/12/20 08:01 Last Admin: 07/18/20 08:07 Dose: 81 mg Documented by: Bisacodyl (Bisacodyl 10 Mg Rectal Supp) 10 mg RC DAILY PRN PRN Reason: CONSTIPATION Stop: 08/11/20 23:55 Carvedilol (Carvedilol 6.25 Mg Tab) 6.25 mg PO BID [facility] Stop: 08/12/20 20:01 Last Admin: 07/18/20 19:06 Dose: Not Given Documented by: Cetirizine HCl (Cetirizine Hcl 5 Mg Tablet) 10 mg PO DAILY [facility] Stop: 08/12/20 08:01 Last Admin: 07/18/20 08:07 Dose: 10 mg Documented by: Clonidine HCl (Clonidine Hcl 0.1 Mg Tab) 0.1 mg PO Q6H PRN PRN Reason: high bp Stop: 08/14/20 16:01 Last Admin: 07/18/20 12:23 Dose: 0.1 mg Documented by: Dextrose (D50w 25 Gm/50 Ml Syringe) 12.5 gm IV PRN PRN; Protocol PRN Reason: HYPOGLYCEMIA Stop: 08/12/20 05:59 Ferrous Sulfate (Ferrous Sulfate 325 Mg Tab) 325 mg PO DAILY [facility] Stop: 08/12/20 08:01 Last Admin: 07/18/20 08:08 Dose: 325 mg Documented by: Gabapentin (Gabapentin 100 Mg Cap) 100 mg PO BID [facility] Stop: 08/12/20 20:01 Last Admin: 07/18/20 19:07 Dose: 100 mg Documented by: Glucagon (Glucagon 1 Mg/Vial) 1 mg IM 1X PRN; Protocol PRN Reason: HYPOGLYCEMIA Stop: 08/12/20 05:59 Heparin Sodium (Porcine) (Heparin 5000 Unit/Ml 1 Ml Vial) 5,000 unit SQ Q12H [facility] Stop: 08/12/20 08:01 Last Admin: 07/18/20 18:13 Dose: 5,000 unit Documented by: Sodium Chloride (Sodium Chloride) 250 mls @ 0 mls/hr IV .Q0M [facility] Stop: 08/14/20 15:01 Last Admin: 07/15/20 15:00 Dose: 250 mls Documented by: Insulin Human Regular (Insulin -Regular Human 50 Unit/0.5 Ml Ml) 0 unit SQ ACHS [facility]; Protocol Stop: 08/12/20 07:31 Last Admin: 07/18/20 20:30 Dose: Not Given Documented by: L-Arginine/L-Glutamine/HMB (Ricardo Packet) 1 pkt PO BID [facility] Stop: 08/12/20 20:01 Last Admin: 07/18/20 19:09 Dose: Not Given Documented by: Lidocaine (Lidocaine 4% Patch) 1 patch TOP DAILY [facility] Stop: 08/12/20 08:01 Last Admin: 07/17/20 09:45 Dose: 1 patch Documented by: Melatonin (Melatonin 3 Mg Tablet) 3 mg PO BEDTIME PRN PRN PRN Reason: INSOMNIA Stop: 08/12/20 15:21 Last Admin: 07/15/20 21:12 Dose: 3 mg Documented by: Multivitamins/Iron (Fe Sulf/Fa/Vit B Comp & C Tab) 1 tab PO DAILY WITH BREAKFAST [facility] Stop: 08/12/20 08:01 Last Admin: 07/18/20 08:08 Dose: 1 tab Documented by: Nicotine (Nicotine 14 Mg/Pat) 14 mg TD DAILY [facility] Stop: 08/13/20 08:01 Last Admin: 07/18/20 09:47 Dose: 14 mg Documented by: Oxybutynin Chloride (Oxybutynin Er 5 Mg Tab) 5 mg PO DAILY [facility] Stop: 08/12/20 08:01 Last Admin: 07/18/20 08:07 Dose: 5 mg Documented by: Paroxetine HCl (Paroxetine Hcl 10 Mg Tab) 20 mg PO DAILY [facility] Stop: 08/12/20 08:01 Last Admin: 07/18/20 08:08 Dose: 20 mg Documented by: Pioglitazone HCl (Pioglitazone 15 Mg Tab) 15 mg PO DAILY WITH BREAKFAST [facility] Stop: 08/12/20 08:01 Last Admin: 07/18/20 08:08 Dose: 15 mg Documented by: Ramipril (Ramipril 5 Mg Cap) 5 mg PO DAILY [facility] Stop: 08/14/20 16:01 Last Admin: 07/18/20 08:07 Dose: 5 mg Documented by: Senna/Docusate Sodium (Docusate Na/Senna Conc 1 Tab) 1 tab PO BEDTIME [facility] Stop: 08/12/20 21:01 Last Admin: 07/18/20 19:06 Dose: 1 tab Documented by: Tramadol HCl (Tramadol Hcl 50 Mg Tab) 50 mg PO Q6H PRN PRN Reason: Pain scale 5-7 (Moderate) Stop: 08/13/20 11:06 Last Admin: 07/18/20 08:06 Dose: 50 mg Documented by: Lab Results (last 24 hrs) 07/18/20 19:49: POC Glucose 169 H 07/18/20 16:08: POC Glucose 212 H 07/18/20 11:17: POC Glucose 169 H 07/18/20 07:11: POC Glucose 104 07/18/20 05:34: Sodium 144, Potassium 5.0, Chloride 117 H, Carbon Dioxide 23, BUN 45 H, Creatinine 2.43 H, Estimated GFR 19 L, Glucose 103, Calcium 7.8 L 07/18/20 05:34: WBC 7.50 D, RBC 2.96 L D, Hgb 9.1 L, Hct 27.9 L, MCV 94.3, MCH 30.9, MCHC 32.8, RDW 15.3 H D, Plt Count 249, MPV 10.2, Neutrophils % 60.4, Lymphocytes % 23.8, Monocytes % 9.5, Eosinophils % 4.8 H, Basophils % 1.5 H, Absolute Neutrophils 4.5, Absolute Lymphocytes 1.8, Absolute Monocytes 0.7, Absolute Eosinophils 0.4, Absolute Basophils 0.1 Microbiology Results 07/12/20 21:30 Clean Catch Urine [place] Count - Final >100,000 CFU/ML. 07/12/20 21:30 Clean Catch Urine - Final Enterococcus Faecalis Assessment/ Plan: Nephrology No acute cardiac or pulmonary compaints. No CP or SOB. No acute events overnight. Vitals, medications, blood work and imaging reviewed in the chart. NAD. MMM. Neck supple. CTA. RRR. Soft Abd. No C/C/E. No rash. Somnolent. No Speech. A/P: Continue the current POC and Medications other than the changes listed. AM Labs PRN. Recommend daily weight. Please see the orders for complete details. CKD IV with proteinuria -Continue Ramipril -No NSAIDs Hypocalcemia -Start Cholecalciferol and Calcitriol HTN with CKD -Continue Coreg and Clonidine DM II with CKD -Continue RISS Moderate malnutrition -Recommend protein supplementation Anemia in chronic illness -Continue oral iron supplementation -Start Retacrit Acute cystitis -Repeat UA and Culture
[2020-07-19] MEDS: HEPARIN 5000 UNIT/ML 1 ML VIAL SQ SCH ×2 (05:59→18:04)
[2020-07-19] MEDS: INSULIN -REGULAR HUMAN 50 UNIT/0.5 ML ML SQ SCH ×4 (07:30→19:16)
[2020-07-19] MEDS: LIDOCAINE 4% PATCH TOP SCH (07:45)
[2020-07-19] MEDS: NICOTINE 14 MG/PAT TD SCH (07:45)
[2020-07-19] MEDS: JUVEN PACKET PO SCH ×2 (08:00→19:14)
[2020-07-19] MEDS: TRAMADOL HCL 50 MG TAB PO PRN (08:14)
[2020-07-19] MEDS: carvediloL 6.25 MG TAB PO SCH ×2 (08:15→19:13)
[2020-07-19] MEDS: FE SULF/FA/VIT B COMP & C TAB PO SCH (08:16)
[2020-07-19] MEDS: GABAPENTIN 100 MG CAP PO SCH ×2 (08:16→19:14)
[2020-07-19] MEDS: FERROUS SULFATE 325 MG TAB PO SCH (08:16)
[2020-07-19] MEDS: ramipriL 5 MG CAP PO SCH (08:16)
[2020-07-19] MEDS: CRANBERRY FRUIT EXTRACT 200 MG CAP PO SCH ×2 (08:16→19:13)
[2020-07-19] MEDS: ASPIRIN EC 81 MG TAB PO SCH (08:16)
[2020-07-19] MEDS: PIOGLITAZONE 15 MG TAB PO SCH (08:17)
[2020-07-19] MEDS: VITAMIN D 5,000 UNIT CAP PO SCH (08:17)
[2020-07-19] MEDS: CALCITROL 0.25 MCG CAP PO SCH (08:17)
[2020-07-19] MEDS: CETIRIZINE HCL 5 MG TABLET PO SCH (08:17)
[2020-07-19] MEDS: PARoxetine HCL 10 MG TAB PO SCH (08:17)
[2020-07-19] MEDS: OXYBUTYNIN ER 5 MG TAB PO SCH (08:17)
[2020-07-19] MEDS ORDERED: EPOETIN ALFA-EPBX 10,000 UNIT/ML VIAL SQ SCH (09:00)
[2020-07-19] MEDS: ACETAMINOPHEN 500 MG TAB PO PRN (11:17)
--- NOTE | 2020-07-19 17:56 | R.PN ---
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 SUBJECTIVE: Pt denied any Shortness of Breath. Pt denied any depression. Patient states that pain is under control. Ambulated 550' with rolling walker and contact guard assistance. WBC 7.5, Hgb 9.1, glucose 134 - 189, calcium 7.8. VITAL SIGNS Temperature: 97.3 F BP: 155/50 Pulse: 51 Resp: 16 MEDICATION ALLERGIES: No Known Drug Allergies (NKDA) ENVIRONMENTAL ALLERGIES: - Substance Allergies None Known - Other Allergies None Known NURSING: - Shower allowing shower - Skin care per protocol PRECAUTIONS: - Posterior Hip Precaution No adduction across midline No external rotation No hip flexion >90 degrees No internal rotation No wheel chair propulsion ACTIVITIES OOB only with supervision THERAPIES: - Dietary and Nutrition Adequate Nutrition. Nutritional Education. Nutritional Supplements. PHYSICAL EXAM - Gen Alert and awake Lying in bed No apparent distress Oriented to: person, time, and place - Skin No skin breakdown. Normacephalic - Eyes No abnormalities - ENMT No abnormalities - Neck No abnormalities No cervical adenopathy - CVS RRR - Chest No abnormalities - Resp Clear to auscultation - Abd + bowel sounds - GI Soft Deferred - No abnormalities - Ext Left hip surgical site has good hemostasis. - MSK 4+/5 weakness in both lower extremity. - Neuro 4/5 strength left lower extremity. - Psych No abnormalities ASSESSMENT: Pt. is a 89 yo Right-handed female of unknown race.On 07/06/2020 she was admitted to [facility] with diagnosis LEFT FEMORAL FRACTURE.Her impairment category is Orthopaedic Disorders 08 - Unilater al Hip Fracture (08.11).Pre-morbidly, Pt. was independent/mod-I in Self-Care, Endurance, Communicatio n, Locomotion, and Safety Awareness; and she had good Sphincter Control, Transfers Control, and Socia l Cognition.Currently, she has deficits of Balance, Transfers Control, Sphincter Control, Self-Care, and Locomotion.Pt. is now referred to [facility] for acute in-patient rehabili tation in order to maximize patient's functional independence in activities of daily living, strength , ROM, and mobility.- Rehab Goal Patient has realistic goal of being discharged at assistance level 7-Ind to reside at Home with Fami ly/Relatives. MDM/PLAN: - Physical Therapy Decreased range of motion - to improve, our physical therapists will perform initial evaluation of p t's status upon admission and devise an individualized program for increasing patient's Range of [place]es on. Gait dysfunction - to improve, our physical therapists will perform initial evaluation of pt's statu s upon admission and devise an individualized program for Gait Training, and Wheel Chair mobility Inability to transfer - to improve, our physical therapists will perform initial evaluation of pt's status upon admission and devise an individualized program for Bed mobility Need for home safety evaluation - to improve, our physical therapists will perform initial evaluatio n of pt's status upon admission and devise an individualized program for Home Evaluation Need in caregiver upon discharge - to improve, our physical therapists will perform initial evaluati on of pt's status upon admission and devise an individualized program for Caregiver Training New precaution - to improve, our physical therapists will perform initial evaluation of pt's status upon admission and devise an individualized program for Patient precaution education Poor balance - to improve, our physical therapists will perform initial evaluation of pt's status up on admission and devise an individualized program for Balance Training Weakness - to improve, our physical therapists will perform initial evaluation of pt's status upon a dmission and devise an individualized program for Aquatic Therapy, Neuromuscular Reeducation, and Str engthening Achieving independence - to improve, our physical therapists will perform initial evaluation of pt's status upon admission and devise an individualized program for Community Reintegration Activities - Occupational Therapy ADL deficits - to improve, our occupation therapists will perform initial evaluation of pt's status upon admission and devise an individualized program for Bathing, Bed mobility, Community Reintegratio n, Cooking, Dressing, Eating, Fine Motor Skills, Grooming, Homemaking, Kitchen Mobility, Laundry, Pat ient Education, Safety Awareness, Splinting - Positioning, Transfers(Toilet, Tub, Shower), and Wheel Chair Management Need for managed care director - to improve, our occupation therapists will perform initial evaluation of pt's status upon admission and devise an individualized program for Caregiver Training Weakness - to improve, our occupation therapists will perform initial evaluation of pt's status upon admission and devise an individualized program for Aquatic Therapy, Balance, Endurance, UE ROM, and UE strengthening - Other See attached MAR (Medication Administration Record) - Anterior Hip Precaution No abduction No active extension No adduction across midline No external rotation No hip flexion >90 degrees No internal rotation - Diet - Liquid Texture Continue Regular - Tube Feed Continue N/A - Diet Type Continue Regular - Posterior Hip Precaution No adduction across midline No external rotation No hip flexion >90 degrees No internal rotation No wheel chair propulsion - Weight Bearing Precaution WBAT left LE - Skin care per protocol - Diet - Solid Texture Continue Regular - Shower allowing shower FUNCTIONAL STATUS: UPDATED AT WEEKLY TEAM CONFERENCE - Bladder Same accident frequency: 7-Ind - No accidents in the past 7 days - Bowel Same accident frequency: 7-Ind - No accidents in the past 7 days - Walking Same score based on distance walked: 0(N/A) Same score based on distance walked: 1(<=50ft) - Wheelchair Same score based on distance traveled: 0(N/A) FUNCTIONAL STATUS: - Self-Care A. Eating Christian B. Grooming sup C. Bathing sup D. Dressing - Upper Jocelyn E. Dressing - Lower modA F. Toileting sup - Sphincter Control G. Bladder control Jocelyn H. Bowel control Jocelyn - Transfers Control I. Bed/Chair/Wheelchair Jocelyn J. Toilet Jocelyn K. Tub/Shower modA - Locomotion L. Walk/Wheelchair (B) Jocelyn M. Stairs maxA - Communication N. Comprehension (B) Christian O. Expression (B) Christian - Social Cognition P. Social Interaction Christian Q. Problem Solving sup R. Memory Christian - Endurance Fair - Balance Fair - Safety Awareness Fair QI SCORES: - Self-Care A. Eating 03-Partial/moderate assistance B. Oral hygiene 03-Partial/moderate assistance C. Toileting hygiene E. Shower/bathe self 02-Substantial/maximal assistance F. Upper body dressing 03-Partial/moderate assistance G. Lower body dressing 02-Substantial/maximal assistance H. Putting on/taking off footwear 88-Not attempted due to medical condition or safety concerns - Mobility A. Roll left and right 03-Partial/moderate assistance B. Sit to lying 03-Partial/moderate assistance C. Lying to sitting on side of bed 03-Partial/moderate assistance D. Sit to stand 03-Partial/moderate assistance E. Chair/[id number] transfer 02-Substantial/maximal assistance F. Toilet transfer G. Car transfer 88-Not attempted due to medical condition or safety concerns I. Walk 10 feet 03-Partial/moderate assistance J. Walk 50 feet with two turns 88-Not attempted due to medical condition or safety concerns K. Walk 150 feet 88-Not attempted due to medical condition or safety concerns L. Walking 10 feet on uneven surfaces 88-Not attempted due to medical condition or safety concerns M. 1 step (curb) 88-Not attempted due to medical condition or safety concerns N. 4 steps 88-Not attempted due to medical condition or safety concerns O. 12 steps 88-Not attempted due to medical condition or safety concerns P. Picking up object 88-Not attempted due to medical condition or safety concerns R. Wheel 50 feet with two turns 88-Not attempted due to medical condition or safety concerns S. Wheel 150 feet 88-Not attempted due to medical condition or safety concerns - Bladder and Bowel Bladder continence Bowel continence - Endurance Fair - Balance Fair - Safety Awareness Fair CURRENT [facility]. 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
[2020-07-19] MEDS: DOCUSATE NA/SENNA CONC 1 TAB PO SCH (19:13)
--- NOTE | 2020-07-19 20:18 | P.PN ---
Date of Service: 07/19/20 Vital Signs Temp Pulse Resp BP Pulse Ox 97.3 F 51 16 138/69 99 07/19/20 07:00 07/19/20 19:13 07/19/20 09:14 07/19/20 19:13 07/19/20 09:14 Medications Acetaminophen (Acetaminophen 500 Mg Tab) 500 mg PO Q4H PRN PRN Reason: Pain scale 2-4 (Mild) Stop: 08/12/20 12:52 Last Admin: 07/19/20 11:17 Dose: 500 mg Documented by: Aspirin (Aspirin Ec 81 Mg Tab) 81 mg PO DAILY [facility] Stop: 08/12/20 08:01 Last Admin: 07/19/20 08:16 Dose: 81 mg Documented by: Bisacodyl (Bisacodyl 10 Mg Rectal Supp) 10 mg RC DAILY PRN PRN Reason: CONSTIPATION Stop: 08/11/20 23:55 Calcitriol (Calcitrol 0.25 Mcg Cap) 0.5 mcg PO DAILY [facility] Stop: 08/18/20 08:01 Last Admin: 07/19/20 08:17 Dose: 0.5 mcg Documented by: Carvedilol (Carvedilol 6.25 Mg Tab) 6.25 mg PO BID [facility] Stop: 08/12/20 20:01 Last Admin: 07/19/20 19:13 Dose: 6.25 mg Documented by: Cetirizine HCl (Cetirizine Hcl 5 Mg Tablet) 10 mg PO DAILY [facility] Stop: 08/12/20 08:01 Last Admin: 07/19/20 08:17 Dose: 10 mg Documented by: Cholecalciferol (Vitamin D 5,000 Unit Cap) 5,000 unit PO DAILY [facility] Stop: 08/18/20 08:01 Last Admin: 07/19/20 08:17 Dose: 5,000 unit Documented by: Clonidine HCl (Clonidine Hcl 0.1 Mg Tab) 0.1 mg PO Q6H PRN PRN Reason: high bp Stop: 08/14/20 16:01 Last Admin: 07/18/20 12:23 Dose: 0.1 mg Documented by: Dextrose (D50w 25 Gm/50 Ml Syringe) 12.5 gm IV PRN PRN; Protocol PRN Reason: HYPOGLYCEMIA Stop: 08/12/20 05:59 Ferrous Sulfate (Ferrous Sulfate 325 Mg Tab) 325 mg PO DAILY [facility] Stop: 08/12/20 08:01 Last Admin: 07/19/20 08:16 Dose: 325 mg Documented by: Gabapentin (Gabapentin 100 Mg Cap) 100 mg PO BID [facility] Stop: 08/12/20 20:01 Last Admin: 07/19/20 19:14 Dose: 100 mg Documented by: Glucagon (Glucagon 1 Mg/Vial) 1 mg IM 1X PRN; Protocol PRN Reason: HYPOGLYCEMIA Stop: 08/12/20 05:59 Heparin Sodium (Porcine) (Heparin 5000 Unit/Ml 1 Ml Vial) 5,000 unit SQ Q12H [facility] Stop: 08/12/20 08:01 Last Admin: 07/19/20 18:04 Dose: 5,000 unit Documented by: Sodium Chloride (Sodium Chloride) 250 mls @ 0 mls/hr IV .Q0M [facility] Stop: 08/14/20 15:01 Last Admin: 07/15/20 15:00 Dose: 250 mls Documented by: Insulin Human Regular (Insulin -Regular Human 50 Unit/0.5 Ml Ml) 0 unit SQ ACHS [facility]; Protocol Stop: 08/12/20 07:31 Last Admin: 07/19/20 19:16 Dose: Not Given Documented by: L-Arginine/L-Glutamine/HMB (Ricardo Packet) 1 pkt PO BID [facility] Stop: 08/12/20 20:01 Last Admin: 07/19/20 19:14 Dose: Not Given Documented by: Lidocaine (Lidocaine 4% Patch) 1 patch TOP DAILY [facility] Stop: 08/12/20 08:01 Last Admin: 07/19/20 07:45 Dose: 1 patch Documented by: Melatonin (Melatonin 3 Mg Tablet) 3 mg PO BEDTIME PRN PRN PRN Reason: INSOMNIA Stop: 08/12/20 15:21 Last Admin: 07/15/20 21:12 Dose: 3 mg Documented by: Multivitamins/Iron (Fe Sulf/Fa/Vit B Comp & C Tab) 1 tab PO DAILY WITH BREAKFAST [facility] Stop: 08/12/20 08:01 Last Admin: 07/19/20 08:16 Dose: 1 tab Documented by: Nicotine (Nicotine 14 Mg/Pat) 14 mg TD DAILY [facility] Stop: 08/13/20 08:01 Last Admin: 07/19/20 07:45 Dose: 14 mg Documented by: Oxybutynin Chloride (Oxybutynin Er 5 Mg Tab) 5 mg PO DAILY [facility] Stop: 08/12/20 08:01 Last Admin: 07/19/20 08:17 Dose: 5 mg Documented by: Paroxetine HCl (Paroxetine Hcl 10 Mg Tab) 20 mg PO DAILY [facility] Stop: 08/12/20 08:01 Last Admin: 07/19/20 08:17 Dose: 20 mg Documented by: Pioglitazone HCl (Pioglitazone 15 Mg Tab) 15 mg PO DAILY WITH BREAKFAST [facility] Stop: 08/12/20 08:01 Last Admin: 07/19/20 08:17 Dose: 15 mg Documented by: Ramipril (Ramipril 5 Mg Cap) 5 mg PO DAILY [facility] Stop: 08/14/20 16:01 Last Admin: 07/19/20 08:16 Dose: 5 mg Documented by: Senna/Docusate Sodium (Docusate Na/Senna Conc 1 Tab) 1 tab PO BEDTIME [facility] Stop: 08/12/20 21:01 Last Admin: 07/19/20 19:13 Dose: 1 tab Documented by: Tramadol HCl (Tramadol Hcl 50 Mg Tab) 50 mg PO Q6H PRN PRN Reason: Pain scale 5-7 (Moderate) Stop: 08/13/20 11:06 Last Admin: 07/19/20 08:14 Dose: 50 mg Documented by: Lab Results (last 24 hrs) 07/19/20 19:12: POC Glucose 159 H 07/19/20 16:04: POC Glucose 134 H 07/19/20 11:11: POC Glucose 189 H 07/19/20 07:02: POC Glucose 147 H Microbiology Results 07/19/20 10:10 Nasopharnyx Coronavirus COVID-19 PCR - Final 07/12/20 21:30 Clean Catch Urine [place] Count - Final >100,000 CFU/ML. 07/12/20 21:30 Clean Catch Urine - Final Enterococcus Faecalis Assessment/ Plan: Nephrology No acute cardiac or pulmonary compaints. No CP or SOB. Feeling better. No acute events overnight. Vitals, medications, blood work and imaging reviewed in the chart. NAD. MMM. Neck supple. CTA. RRR. Soft Abd. No C/C/E. No rash. AAO. Normal Speech. A/P: Continue the current POC and Medications other than the changes listed. AM Labs PRN. Recommend daily weight. Please see the orders for complete details. CKD IV with proteinuria -Continue Ramipril -No NSAIDs Hypocalcemia -Continue Cholecalciferol and Calcitriol HTN with CKD -Continue Coreg and Clonidine DM II with CKD -Continue RISS Moderate malnutrition -Recommend protein supplementation Anemia in chronic illness -Continue oral iron supplementation -Continue Retacrit Acute cystitis -Repeat UA and Culture
[2020-07-20] MEDS: HEPARIN 5000 UNIT/ML 1 ML VIAL SQ SCH ×2 (06:19→20:00)
[2020-07-20] MEDS: INSULIN -REGULAR HUMAN 50 UNIT/0.5 ML ML SQ SCH ×4 (07:30→20:05)
[2020-07-20] MEDS: JUVEN PACKET PO SCH ×2 (08:00→20:00)
[2020-07-20] MEDS: LIDOCAINE 4% PATCH TOP SCH (08:50)
[2020-07-20] MEDS: FE SULF/FA/VIT B COMP & C TAB PO SCH (08:50)
[2020-07-20] MEDS: NICOTINE 14 MG/PAT TD SCH (08:50)
[2020-07-20] MEDS: PIOGLITAZONE 15 MG TAB PO SCH (08:51)
[2020-07-20] MEDS: carvediloL 6.25 MG TAB PO SCH ×2 (08:51→20:05)
[2020-07-20] MEDS: ASPIRIN EC 81 MG TAB PO SCH (08:51)
[2020-07-20] MEDS: ramipriL 5 MG CAP PO SCH (08:51)
[2020-07-20] MEDS: FERROUS SULFATE 325 MG TAB PO SCH (08:51)
[2020-07-20] MEDS: OXYBUTYNIN ER 5 MG TAB PO SCH (08:51)
[2020-07-20] MEDS: PARoxetine HCL 10 MG TAB PO SCH (08:51)
[2020-07-20] MEDS: VITAMIN D 5,000 UNIT CAP PO SCH (08:51)
[2020-07-20] MEDS: CETIRIZINE HCL 5 MG TABLET PO SCH (08:52)
[2020-07-20] MEDS: CALCITROL 0.25 MCG CAP PO SCH (08:52)
[2020-07-20] MEDS: CRANBERRY FRUIT EXTRACT 200 MG CAP PO SCH ×2 (08:52→20:05)
[2020-07-20] MEDS: GABAPENTIN 100 MG CAP PO SCH ×2 (11:26→20:05)
--- NOTE | 2020-07-20 13:32 | RAD REPORT ---
EXAM DESCRIPTION: CT - Head Brain Wo Cont - 07/20/2020 1:17 pm CLINICAL HISTORY: Headache COMPARISON: None TECHNIQUE: Computed axial tomography of the head was obtained. IV contrast was not requested. All CT scans are performed using dose optimization technique as appropriate and may include automated exposure control or mA/KV adjustment according to patient size. FINDINGS: An intracranial bleed is not seen . The ventricles are normal in caliber. No extra-axial fluid collection is noted. Mild to moderate low-density areas within periventricular, deep and subcortical white matter likely r epresent ischemic changes secondary to small vessel disease. Fluid within the sinuses/ mastoids is not seen. IMPRESSION: No acute intracranial abnormality is seen. If patient's symptoms persist MRI of the bra in would be recommended.
[2020-07-20] MEDS ORDERED: D50W 25 GM/50 ML VIAL IV PRN (14:53)
--- NOTE | 2020-07-20 15:28 | FAST ---
[employer] FORM SHIFT START DATE/TIME: 07/20/2020 07:00 (FOUNDING PARTNER) SHIFT END DATE/TIME: 07/20/2020 19:00 (FOUNDING PARTNER) NAME SALLIE CHEUNG DATE OF : 1930 DATE OF ADMISSION: 07/12/2020 20:06 (FOUNDING PARTNER) PHONE: AGE: 89 N# [id number] GENDER: Female ENCOUNTER PHYSICIAN: Dr. Shaun Johnson M.D. ADMISSION DIAGNOSIS: - Orthopaedic Disorders 08 - Unilateral Hip Fracture (08.11) LEFT FEMORAL FRACTURE. EATING: EATING - STEP 1: Does the patient complete the activity by him/herself with no assistance (physical, verbal/nonverbal cueing, setup/clean-up)? No. EATING - STEP 2: Does the patient need only setup/clean-up assistance from one helper? Yes. 1. [id number] ADMISSION PERFORMANCE: Setup or clean-up assistance CODE: 05 ORAL HYGIENE: Patient refused CODE: 07 TOILETING HYGIENE: TOILETING HYGIENE - STEP 1: Does the patient complete the activity by him/herself with no assistance (physical, verbal/nonverbal cueing, setup/clean-up)? No. TOILETING HYGIENE - STEP 2: Does the patient need only setup/clean-up assistance from one helper? No. TOILETING HYGIENE - STEP 3: Does the patient need only verbal/nonverbal cueing or touching/steadying/contact guard assistance fro m one helper? Yes. 1. [id number] ADMISSION PERFORMANCE: Supervision or touching assistance CODE: 04 BATHING: Not assessed/no information CODE: - DRESSING - UPPER BODY: DRESSING - UPPER BODY - STEP 1: Does the patient complete the activity by him/herself with no assistance (physical, verbal/nonverbal cueing, setup/clean-up)? No. DRESSING - UPPER BODY - STEP 2: Does the patient need only setup/clean-up assistance from one helper? No. DRESSING - UPPER BODY - STEP 3: Does the patient need only verbal/nonverbal cueing or touching/steadying/contact guard assistance fro m one helper? Yes. 1. [id number] ADMISSION PERFORMANCE: Supervision or touching assistance CODE: 04 DRESSING - LOWER BODY: DRESSING - LOWER BODY - STEP 1: Does the patient complete the activity by him/herself with no assistance (physical, verbal/nonverbal cueing, setup/clean-up)? No. DRESSING - LOWER BODY - STEP 2: Does the patient need only setup/clean-up assistance from one helper? No. DRESSING - LOWER BODY - STEP 3: Does the patient need only verbal/nonverbal cueing or touching/steadying/contact guard assistance fro m one helper? Yes. 1. [id number] ADMISSION PERFORMANCE: Supervision or touching assistance CODE: 04 PUTTING ON/TAKING OFF FOOTWEAR: FOOTWEAR - STEP 1: Does the patient complete the activity by him/herself with no assistance (physical, verbal/nonverbal cueing, setup/clean-up)? No. FOOTWEAR - STEP 2: Does the patient need only setup/clean-up assistance from one helper? No. FOOTWEAR - STEP 3: Does the patient need only verbal/nonverbal cueing or touching/steadying/contact guard assistance fro m one helper? No. FOOTWEAR - STEP 4: Does the patient need physical assistance - for example lifting or trunk support from one helper - wi th the helper providing less than half of the effort? Yes. 1. [id number] ADMISSION PERFORMANCE: Partial/moderate assistance CODE: 03 ROLL LEFT AND RIGHT: ROLL LEFT AND RIGHT - STEP 1: Does the patient complete the activity by him/herself with no assistance (physical, verbal/nonverbal cueing, setup/clean-up)? No. ROLL LEFT AND RIGHT - STEP 2: Does the patient need only setup/clean-up assistance from one helper? No. ROLL LEFT AND RIGHT - STEP 3: Does the patient need only verbal/nonverbal cueing or touching/steadying/contact guard assistance fro m one helper? Yes. 1. [id number] ADMISSION PERFORMANCE: Supervision or touching assistance CODE: 04 SIT TO LYING: SIT TO LYING - STEP 1: Does the patient complete the activity by him/herself with no assistance (physical, verbal/nonverbal cueing, setup/clean-up)? No. SIT TO LYING - STEP 2: Does the patient need only setup/clean-up assistance from one helper? Yes. 1. [id number] ADMISSION PERFORMANCE: Setup or clean-up assistance CODE: 05 LYING TO SITTING: LYING TO SITTING ON SIDE OF BED - STEP 1: Does the patient complete the activity by him/herself with no assistance (physical, verbal/nonverbal cueing, setup/clean-up)? No. LYING TO SITTING ON SIDE OF BED - STEP 2: Does the patient need only setup/clean-up assistance from one helper? Yes. 1. [id number] ADMISSION PERFORMANCE: Setup or clean-up assistance CODE: 05 SIT TO STAND: SIT TO STAND - STEP 1: Does the patient complete the activity by him/herself with no assistance (physical, verbal/nonverbal cueing, setup/clean-up)? No. SIT TO STAND - STEP 2: Does the patient need only setup/clean-up assistance from one helper? No. SIT TO STAND - STEP 3: Does the patient need only verbal/nonverbal cueing or touching/steadying/contact guard assistance fro m one helper? Yes. 1. [id number] ADMISSION PERFORMANCE: Supervision or touching assistance CODE: 04 TRANSFERS: BED, CHAIR: CHAIR/[id number] TRANSFER - STEP 1: Does the patient complete the activity by him/herself with no assistance (physical, verbal/nonverbal cueing, setup/clean-up)? No. CHAIR/[id number] TRANSFER - STEP 2: Does the patient need only setup/clean-up assistance from one helper? Yes. 1. [id number] ADMISSION PERFORMANCE: Setup or clean-up assistance CODE: 05 TRANSFER TOILET: TOILET TRANSFER - STEP 1: Does the patient complete the activity by him/herself with no assistance (physical, verbal/nonverbal cueing, setup/clean-up)? No. TOILET TRANSFER - STEP 2: Does the patient need only setup/clean-up assistance from one helper? Yes. 1. [id number] ADMISSION PERFORMANCE: Setup or clean-up assistance CODE: 05 TRANSFERS: CAR: Not assessed/no information CODE: - WALK 10 FEET: Not assessed/no information CODE: - 1 STEP (CURB): Not assessed/no information CODE: - PICKING UP OBJECT: Not assessed/no information CODE: - DOES THE PATIENT USE A WHEELCHAIR/SCOOTER? Q1. DOES THE PATIENT USE A WHEELCHAIR/SCOOTER?: Yes CODE: 1 WHEEL 50 FEET WITH TWO TURNS: Not assessed/no information CODE: - INDICATE THE TYPE OF WHEELCHAIR/SCOOTER USED: RR1. INDICATE THE TYPE OF WHEELCHAIR/SCOOTER USED.: Manual CODE: 1 WHEEL 150 FEET: Not assessed/no information CODE: - INDICATE THE TYPE OF WHEELCHAIR/SCOOTER USED: SS1. INDICATE THE TYPE OF WHEELCHAIR/SCOOTER USED.: Manual CODE: 1 BLADDER AND BOWEL: H350. BLADDER CONTINENCE (3-DAY ASSESSMENT PERIOD): Always continent (no documented incontinence) CODE: 0 H400. BOWEL CONTINENCE (3-DAY ASSESSMENT PERIOD): Always continent CODE: 0 SIGNATURE PANEL: The following modified sections: 1. [id number] Admission Performance, 1. [id number] Admission Performance, 1. [id number] Admission Performance, 1. [id number] Admission Performance, 1. [id number] Admission Performance, 1. [id number] Admission Performance, 1. [id number] Admission Performance, 1. [id number] Admission Performance , 1. [id number] Admission Performance, 1. [id number] Admission Performance, 1. [id number] Admission Performanc e, Q1. Does the patient use a wheelchair/scooter?, RR1. Indicate the type of wheelchair/scooter used. , Code, SS1. Indicate the type of wheelchair/scooter used., H350. Bladder Continence (3-day assessmen t period), H400. Bowel Continence (3-day assessment period) were [electronically] signed by Alaina lenz CAnalyNMillie on SatJul 20 2020 15:27:38 GMT-0600 (Central Standard Time)
--- NOTE | 2020-07-20 16:15 | R.PN ---
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 SUBJECTIVE: Pt denied any Shortness of Breath. Pt denied any depression. Patient states that pain is under control. WBC 7.5, Hgb 9.1, glucose 101 - 146, calcium 7.8. Therapeutic exercises done with supervision. MMSE done by speech therapy is 13/30. She has severe cognitive-linguistic impairments. VITAL SIGNS Temperature: 97.6 F BP: 149/78 Pulse: 60 Resp: 16 MEDICATION ALLERGIES: No Known Drug Allergies (NKDA) ENVIRONMENTAL ALLERGIES: - Substance Allergies None Known - Other Allergies None Known NURSING: - Shower allowing shower - Skin care per protocol PRECAUTIONS: - Posterior Hip Precaution No adduction across midline No external rotation No hip flexion >90 degrees No internal rotation No wheel chair propulsion ACTIVITIES OOB only with supervision THERAPIES: - Dietary and Nutrition Adequate Nutrition. Nutritional Education. Nutritional Supplements. PHYSICAL EXAM - Gen Alert and awake Lying in bed No apparent distress Oriented to: person, time, and place - Skin No skin breakdown. Normacephalic - Eyes No abnormalities - ENMT No abnormalities - Neck No abnormalities No cervical adenopathy - CVS RRR - Chest No abnormalities - Resp Clear to auscultation - Abd + bowel sounds - GI Soft Deferred - No abnormalities - Ext Left hip surgical site has good hemostasis. - MSK 4+/5 weakness in both lower extremity. - Neuro 4/5 strength left lower extremity. - Psych No abnormalities ASSESSMENT: Pt. is a 89 yo Right-handed female of unknown race.On 07/06/2020 she was admitted to [facility] with diagnosis LEFT FEMORAL FRACTURE.Her impairment category is Orthopaedic Disorders 08 - Unilater al Hip Fracture (08.11).Pre-morbidly, Pt. was independent/mod-I in Self-Care, Endurance, Communicatio n, Locomotion, and Safety Awareness; and she had good Sphincter Control, Transfers Control, and Socia l Cognition.Currently, she has deficits of Balance, Transfers Control, Sphincter Control, Self-Care, and Locomotion.Pt. is now referred to [facility] for acute in-patient rehabili tation in order to maximize patient's functional independence in activities of daily living, strength , ROM, and mobility.- Rehab Goal Patient has realistic goal of being discharged at assistance level 7-Ind to reside at Home with Fami ly/Relatives. MDM/PLAN: - Physical Therapy Decreased range of motion - to improve, our physical therapists will perform initial evaluation of p t's status upon admission and devise an individualized program for increasing patient's Range of Ramses on. Gait dysfunction - to improve, our physical therapists will perform initial evaluation of pt's statu s upon admission and devise an individualized program for Gait Training, and Wheel Chair mobility Inability to transfer - to improve, our physical therapists will perform initial evaluation of pt's status upon admission and devise an individualized program for Bed mobility Need for home safety evaluation - to improve, our physical therapists will perform initial evaluatio n of pt's status upon admission and devise an individualized program for Home Evaluation Need in caregiver upon discharge - to improve, our physical therapists will perform initial evaluati on of pt's status upon admission and devise an individualized program for Caregiver Training New precaution - to improve, our physical therapists will perform initial evaluation of pt's status upon admission and devise an individualized program for Patient precaution education Poor balance - to improve, our physical therapists will perform initial evaluation of pt's status up on admission and devise an individualized program for Balance Training Weakness - to improve, our physical therapists will perform initial evaluation of pt's status upon a dmission and devise an individualized program for Aquatic Therapy, Neuromuscular Reeducation, and Str engthening Achieving independence - to improve, our physical therapists will perform initial evaluation of pt's status upon admission and devise an individualized program for Community Reintegration Activities - Occupational Therapy ADL deficits - to improve, our occupation therapists will perform initial evaluation of pt's status upon admission and devise an individualized program for Bathing, Bed mobility, Community Reintegratio n, Cooking, Dressing, Eating, Fine Motor Skills, Grooming, Homemaking, Kitchen Mobility, Laundry, Pat ient Education, Safety Awareness, Splinting - Positioning, Transfers(Toilet, Tub, Shower), and Wheel Chair Management Need for weekend caregiver - to improve, our occupation therapists will perform initial evaluation of pt's status upon admission and devise an individualized program for Caregiver Training Weakness - to improve, our occupation therapists will perform initial evaluation of pt's status upon admission and devise an individualized program for Aquatic Therapy, Balance, Endurance, UE ROM, and UE strengthening - Other See attached MAR (Medication Administration Record) - Anterior Hip Precaution No abduction No active extension No adduction across midline No external rotation No hip flexion >90 degrees No internal rotation - Diet - Liquid Texture Continue Regular - Tube Feed Continue N/A - Diet Type Continue Regular - Posterior Hip Precaution No adduction across midline No external rotation No hip flexion >90 degrees No internal rotation No wheel chair propulsion - Weight Bearing Precaution WBAT left LE - Skin care per protocol - Diet - Solid Texture Continue Regular - Shower allowing shower FUNCTIONAL STATUS: UPDATED AT WEEKLY TEAM CONFERENCE - Bladder Same accident frequency: 7-Ind - No accidents in the past 7 days - Bowel Same accident frequency: 7-Ind - No accidents in the past 7 days - Walking Same score based on distance walked: 0(N/A) Same score based on distance walked: 1(<=50ft) - Wheelchair Same score based on distance traveled: 0(N/A) FUNCTIONAL STATUS: - Self-Care A. Eating Christian B. Grooming sup C. Bathing sup D. Dressing - Upper Jocelyn E. Dressing - Lower modA F. Toileting sup - Sphincter Control G. Bladder control Jocelyn H. Bowel control Jocelyn - Transfers Control I. Bed/Chair/Wheelchair Jocelyn J. Toilet Jocelyn K. Tub/Shower modA - Locomotion L. Walk/Wheelchair (B) Jocelyn M. Stairs maxA - Communication N. Comprehension (B) Christian O. Expression (B) Christian - Social Cognition P. Social Interaction Christian Q. Problem Solving sup R. Memory Christian - Endurance Fair - Balance Fair - Safety Awareness Fair QI SCORES: - Self-Care A. Eating 03-Partial/moderate assistance B. Oral hygiene 03-Partial/moderate assistance C. Toileting hygiene E. Shower/bathe self 02-Substantial/maximal assistance F. Upper body dressing 03-Partial/moderate assistance G. Lower body dressing 02-Substantial/maximal assistance H. Putting on/taking off footwear 88-Not attempted due to medical condition or safety concerns - Mobility A. Roll left and right 03-Partial/moderate assistance B. Sit to lying 03-Partial/moderate assistance C. Lying to sitting on side of bed 03-Partial/moderate assistance D. Sit to stand 03-Partial/moderate assistance E. Chair/ldo-dd-qhxie transfer 02-Substantial/maximal assistance F. Toilet transfer G. Car transfer 88-Not attempted due to medical condition or safety concerns I. Walk 10 feet 03-Partial/moderate assistance J. Walk 50 feet with two turns 88-Not attempted due to medical condition or safety concerns K. Walk 150 feet 88-Not attempted due to medical condition or safety concerns L. Walking 10 feet on uneven surfaces 88-Not attempted due to medical condition or safety concerns M. 1 step (curb) 88-Not attempted due to medical condition or safety concerns N. 4 steps 88-Not attempted due to medical condition or safety concerns O. 12 steps 88-Not attempted due to medical condition or safety concerns P. Picking up object 88-Not attempted due to medical condition or safety concerns R. Wheel 50 feet with two turns 88-Not attempted due to medical condition or safety concerns S. Wheel 150 feet 88-Not attempted due to medical condition or safety concerns - Bladder and Bowel Bladder continence Bowel continence - Endurance Fair - Balance Fair - Safety Awareness Fair [facility] 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
[2020-07-20] MEDS: TRAMADOL HCL 50 MG TAB PO PRN (17:18)
[2020-07-20] MEDS: EPOETIN ALFA-EPBX 4,000 UNIT/ML VIAL SQ SCH (17:19)
--- NOTE | 2020-07-20 19:30 | P.PN ---
Date of Service: 07/20/20 Vital Signs Temp Pulse Resp BP Pulse Ox 97.6 F 60 18 149/78 H 96 07/20/20 07:38 07/20/20 08:51 07/20/20 18:14 07/20/20 08:51 07/20/20 18:14 Medications Acetaminophen (Acetaminophen 500 Mg Tab) 500 mg PO Q4H PRN PRN Reason: Pain scale 2-4 (Mild) Stop: 08/12/20 12:52 Last Admin: 07/19/20 11:17 Dose: 500 mg Documented by: Aspirin (Aspirin Ec 81 Mg Tab) 81 mg PO DAILY KASIE Stop: 08/12/20 08:01 Last Admin: 07/20/20 08:51 Dose: 81 mg Documented by: Bisacodyl (Bisacodyl 10 Mg Rectal Supp) 10 mg RC DAILY PRN PRN Reason: CONSTIPATION Stop: 08/11/20 23:55 Calcitriol (Calcitrol 0.25 Mcg Cap) 0.5 mcg PO DAILY KASIE Stop: 08/18/20 08:01 Last Admin: 07/20/20 08:52 Dose: 0.5 mcg Documented by: Carvedilol (Carvedilol 6.25 Mg Tab) 6.25 mg PO BID KASIE Stop: 08/12/20 20:01 Last Admin: 07/20/20 08:51 Dose: 6.25 mg Documented by: Cetirizine HCl (Cetirizine Hcl 5 Mg Tablet) 10 mg PO DAILY KASIE Stop: 08/12/20 08:01 Last Admin: 07/20/20 08:52 Dose: 10 mg Documented by: Cholecalciferol (Vitamin D 5,000 Unit Cap) 5,000 unit PO DAILY KASIE Stop: 08/18/20 08:01 Last Admin: 07/20/20 08:51 Dose: 5,000 unit Documented by: Clonidine HCl (Clonidine Hcl 0.1 Mg Tab) 0.1 mg PO Q6H PRN PRN Reason: high bp Stop: 08/14/20 16:01 Last Admin: 07/18/20 12:23 Dose: 0.1 mg Documented by: Dextrose (D50w 25 Gm/50 Ml Vial) 12.5 gm IV PRN PRN; Protocol PRN Reason: HYPOGLYCEMIA Stop: 08/19/20 14:54 Ferrous Sulfate (Ferrous Sulfate 325 Mg Tab) 325 mg PO DAILY [facility] Stop: 08/12/20 08:01 Last Admin: 07/20/20 08:51 Dose: 325 mg Documented by: Gabapentin (Gabapentin 100 Mg Cap) 100 mg PO BID [facility] Stop: 08/12/20 20:01 Last Admin: 07/20/20 11:26 Dose: 100 mg Documented by: Glucagon (Glucagon 1 Mg/Vial) 1 mg IM 1X PRN; Protocol PRN Reason: HYPOGLYCEMIA Stop: 08/12/20 05:59 Heparin Sodium (Porcine) (Heparin 5000 Unit/Ml 1 Ml Vial) 5,000 unit SQ Q12H KASIE Stop: 08/12/20 08:01 Last Admin: 07/20/20 06:19 Dose: 5,000 unit Documented by: Sodium Chloride (Sodium Chloride) 250 mls @ 0 mls/hr IV .Q0M [facility] Stop: 08/14/20 15:01 Last Admin: 07/15/20 15:00 Dose: 250 mls Documented by: Insulin Human Regular (Insulin -Regular Human 50 Unit/0.5 Ml Ml) 0 unit SQ ACHS [facility]; Protocol Stop: 08/12/20 07:31 Last Admin: 07/20/20 16:30 Dose: Not Given Documented by: L-Arginine/L-Glutamine/HMB (Ricardo Packet) 1 pkt PO BID [facility] Stop: 08/12/20 20:01 Last Admin: 07/20/20 08:00 Dose: Not Given Documented by: Lidocaine (Lidocaine 4% Patch) 1 patch TOP DAILY [facility] Stop: 08/12/20 08:01 Last Admin: 07/20/20 08:50 Dose: 1 patch Documented by: Melatonin (Melatonin 3 Mg Tablet) 3 mg PO BEDTIME PRN PRN PRN Reason: INSOMNIA Stop: 08/12/20 15:21 Last Admin: 07/15/20 21:12 Dose: 3 mg Documented by: Multivitamins/Iron (Fe Sulf/Fa/Vit B Comp & C Tab) 1 tab PO DAILY WITH BREAKFAST [facility] Stop: 08/12/20 08:01 Last Admin: 07/20/20 08:50 Dose: 1 tab Documented by: Nicotine (Nicotine 14 Mg/Pat) 14 mg TD DAILY [facility] Stop: 08/13/20 08:01 Last Admin: 07/20/20 08:50 Dose: 14 mg Documented by: Oxybutynin Chloride (Oxybutynin Er 5 Mg Tab) 5 mg PO DAILY KASIE Stop: 08/12/20 08:01 Last Admin: 07/20/20 08:51 Dose: 5 mg Documented by: Paroxetine HCl (Paroxetine Hcl 10 Mg Tab) 20 mg PO DAILY KASIE Stop: 08/12/20 08:01 Last Admin: 07/20/20 08:51 Dose: 20 mg Documented by: Pioglitazone HCl (Pioglitazone 15 Mg Tab) 15 mg PO DAILY WITH BREAKFAST KASIE Stop: 08/12/20 08:01 Last Admin: 07/20/20 08:51 Dose: 15 mg Documented by: Ramipril (Ramipril 5 Mg Cap) 5 mg PO DAILY KASIE Stop: 08/14/20 16:01 Last Admin: 07/20/20 08:51 Dose: 5 mg Documented by: Senna/Docusate Sodium (Docusate Na/Senna Conc 1 Tab) 1 tab PO BEDTIME KASIE Stop: 08/12/20 21:01 Last Admin: 07/19/20 19:13 Dose: 1 tab Documented by: Tramadol HCl (Tramadol Hcl 50 Mg Tab) 50 mg PO Q6H PRN PRN Reason: Pain scale 5-7 (Moderate) Stop: 08/13/20 11:06 Last Admin: 07/20/20 17:18 Dose: 50 mg Documented by: Lab Results (last 24 hrs) 07/20/20 16:17: POC Glucose 98 07/20/20 12:00: POC Glucose 146 H 07/20/20 07:57: POC Glucose 101 Microbiology Results 07/19/20 10:10 Nasopharnyx Coronavirus COVID-19 PCR - Final 07/12/20 21:30 Clean Catch Urine [place] Count - Final >100,000 CFU/ML. 07/12/20 21:30 Clean Catch Urine - Final Enterococcus Faecalis Assessment/ Plan: Nephrology No acute cardiac or pulmonary compaints. No CP or SOB. Feeling better. No acute events overnight. Vitals, medications, blood work and imaging reviewed in the chart. NAD. MMM. Neck supple. CTA. RRR. Soft Abd. No C/C/E. No rash. AAO. Normal Speech. A/P: Continue the current POC and Medications other than the changes listed. AM Labs PRN. Recommend daily weight. Please see the orders for complete details. CKD IV with proteinuria -Continue Ramipril -No NSAIDs Hypocalcemia -Continue Cholecalciferol and Calcitriol HTN with CKD -Continue Coreg and Clonidine DM II with CKD -Continue RISS Moderate malnutrition -Recommend protein supplementation Anemia in chronic illness -Continue oral iron supplementation -Continue Retacrit Acute cystitis -Repeat UA and Culture
[2020-07-20] MEDS: DOCUSATE NA/SENNA CONC 1 TAB PO SCH (20:05)
[2020-07-21 06:32] LABS: Absolute Lymphocytes (CBC) 1.6 K/uL (0.7-4.9); Basophils % 1.3 % (0-1.3); Hematocrit 27.8 % (36.0-45.0); Lymphocytes % 21.9 % (15.3-44.8); MPV 10.1 fL (7.6-11.3); RBC Red Blood Cell Count 2.92 M/uL (3.86-4.86)
[2020-07-21] MEDS: HEPARIN 5000 UNIT/ML 1 ML VIAL SQ SCH ×2 (07:30→20:32)
[2020-07-21] MEDS: INSULIN -REGULAR HUMAN 50 UNIT/0.5 ML ML SQ SCH ×4 (07:30→20:35)
[2020-07-21 07:48] LABS: Magnesium 2.7 mg/dL (1.8-2.4); Prealbumin 13.7 mg/dL (20-40)
[2020-07-21 07:52] LABS: Potassium 5.8 mmol/L (3.5-5.1)
[2020-07-21] MEDS: JUVEN PACKET PO SCH ×2 (08:00→19:57)
[2020-07-21] MEDS: ramipriL 5 MG CAP PO SCH (08:00)
--- NOTE | 2020-07-21 08:20 | P.PN ---
Date of Service: 07/21/20 Vital Signs Temp Pulse Resp BP Pulse Ox 98.7 F 58 18 169/55 H 98 07/21/20 07:17 07/21/20 07:17 07/21/20 07:17 07/21/20 07:17 07/21/20 07:17 Medications Acetaminophen (Acetaminophen 500 Mg Tab) 500 mg PO Q4H PRN PRN Reason: Pain scale 2-4 (Mild) Stop: 08/12/20 12:52 Last Admin: 07/19/20 11:17 Dose: 500 mg Documented by: Amlodipine Besylate (Amlodipine 5 Mg Tab) 5 mg PO DAILY KASIE Stop: 08/20/20 09:01 Aspirin (Aspirin Ec 81 Mg Tab) 81 mg PO DAILY KASIE Stop: 08/12/20 08:01 Last Admin: 07/20/20 08:51 Dose: 81 mg Documented by: Bisacodyl (Bisacodyl 10 Mg Rectal Supp) 10 mg RC DAILY PRN PRN Reason: CONSTIPATION Stop: 08/11/20 23:55 Calcitriol (Calcitrol 0.25 Mcg Cap) 0.5 mcg PO DAILY KASIE Stop: 08/18/20 08:01 Last Admin: 07/20/20 08:52 Dose: 0.5 mcg Documented by: Carvedilol (Carvedilol 6.25 Mg Tab) 6.25 mg PO BID KASIE Stop: 08/12/20 20:01 Last Admin: 07/20/20 20:05 Dose: 6.25 mg Documented by: Cetirizine HCl (Cetirizine Hcl 5 Mg Tablet) 10 mg PO DAILY KASIE Stop: 08/12/20 08:01 Last Admin: 07/20/20 08:52 Dose: 10 mg Documented by: Cholecalciferol (Vitamin D 5,000 Unit Cap) 5,000 unit PO DAILY KASIE Stop: 08/18/20 08:01 Last Admin: 07/20/20 08:51 Dose: 5,000 unit Documented by: Clonidine HCl (Clonidine Hcl 0.1 Mg Tab) 0.1 mg PO Q6H PRN PRN Reason: high bp Stop: 08/14/20 16:01 Last Admin: 07/18/20 12:23 Dose: 0.1 mg Documented by: Dextrose (D50w 25 Gm/50 Ml Vial) 12.5 gm IV PRN PRN; Protocol PRN Reason: HYPOGLYCEMIA Stop: 08/19/20 14:54 Doxazosin Mesylate (Doxazosin 2 Mg Tab) 2 mg PO BID [facility] Stop: 08/20/20 08:31 Ferrous Sulfate (Ferrous Sulfate 325 Mg Tab) 325 mg PO DAILY KASIE Stop: 08/12/20 08:01 Last Admin: 07/20/20 08:51 Dose: 325 mg Documented by: Gabapentin (Gabapentin 100 Mg Cap) 100 mg PO BID KASIE Stop: 08/12/20 20:01 Last Admin: 07/20/20 20:05 Dose: 100 mg Documented by: Glucagon (Glucagon 1 Mg/Vial) 1 mg IM 1X PRN; Protocol PRN Reason: HYPOGLYCEMIA Stop: 08/12/20 05:59 Heparin Sodium (Porcine) (Heparin 5000 Unit/Ml 1 Ml Vial) 5,000 unit SQ Q12H KASIE Stop: 08/12/20 08:01 Last Admin: 07/20/20 20:00 Dose: 5,000 unit Documented by: Sodium Chloride (Sodium Chloride) 250 mls @ 0 mls/hr IV .Q0M KASIE Stop: 08/14/20 15:01 Last Admin: 07/15/20 15:00 Dose: 250 mls Documented by: Insulin Human Regular (Insulin -Regular Human 50 Unit/0.5 Ml Ml) 0 unit SQ ACHS [facility]; Protocol Stop: 08/12/20 07:31 Last Admin: 07/21/20 07:30 Dose: Not Given Documented by: L-Arginine/L-Glutamine/HMB (Ricardo Packet) 1 pkt PO BID KASIE Stop: 08/12/20 20:01 Last Admin: 07/20/20 20:00 Dose: Not Given Documented by: Lidocaine (Lidocaine 4% Patch) 1 patch TOP DAILY KASIE Stop: 08/12/20 08:01 Last Admin: 07/20/20 08:50 Dose: 1 patch Documented by: Melatonin (Melatonin 3 Mg Tablet) 3 mg PO BEDTIME PRN PRN PRN Reason: INSOMNIA Stop: 08/12/20 15:21 Last Admin: 07/15/20 21:12 Dose: 3 mg Documented by: Multivitamins/Iron (Fe Sulf/Fa/Vit B Comp & C Tab) 1 tab PO DAILY WITH BREAKFAST [facility] Stop: 08/12/20 08:01 Last Admin: 07/20/20 08:50 Dose: 1 tab Documented by: Nicotine (Nicotine 14 Mg/Pat) 14 mg TD DAILY KASEI Stop: 08/13/20 08:01 Last Admin: 07/20/20 08:50 Dose: 14 mg Documented by: Oxybutynin Chloride (Oxybutynin Er 5 Mg Tab) 5 mg PO DAILY KASIE Stop: 08/12/20 08:01 Last Admin: 07/20/20 08:51 Dose: 5 mg Documented by: Paroxetine HCl (Paroxetine Hcl 10 Mg Tab) 20 mg PO DAILY KASIE Stop: 08/12/20 08:01 Last Admin: 07/20/20 08:51 Dose: 20 mg Documented by: Pioglitazone HCl (Pioglitazone 15 Mg Tab) 15 mg PO DAILY WITH BREAKFAST KASIE Stop: 08/12/20 08:01 Last Admin: 07/20/20 08:51 Dose: 15 mg Documented by: Senna/Docusate Sodium (Docusate Na/Senna Conc 1 Tab) 1 tab PO BEDTIME KASIE Stop: 08/12/20 21:01 Last Admin: 07/20/20 20:05 Dose: 1 tab Documented by: Sodium Polystyrene Sulfonate (Sod Polystyren Sul 15 Gm/60 Ml Ucup) 15 gm PO Q6H KASIE Stop: 07/21/20 15:01 Tramadol HCl (Tramadol Hcl 50 Mg Tab) 50 mg PO Q6H PRN PRN Reason: Pain scale 5-7 (Moderate) Stop: 08/13/20 11:06 Last Admin: 07/20/20 17:18 Dose: 50 mg Documented by: Lab Results (last 24 hrs) 07/21/20 07:08: Sodium 145, Potassium 5.8 H*, Chloride 115 H, Carbon Dioxide 25, BUN 40 H, Creatinine 2.60 H, Estimated GFR 17 L, Glucose 95, Calcium 8.4 L, Magnesium 2.7 H, Albumin 2.0 L, Prealbumin 13.7 L 07/21/20 06:39: POC Glucose 86 07/21/20 06:13: WBC 7.40, RBC 2.92 L, Hgb 9.4 L, Hct 27.8 L, MCV 95.1, MCH 32.3, MCHC 34.0, RDW 15.6 H, Plt Count 251, MPV 10.1, Neutrophils % 62.6, Lymphocytes % 21.9, Monocytes % 8.8, Eosinophils % 5.4 H, Basophils % 1.3, Absolute Neutrophils 4.6, Absolute Lymphocytes 1.6, Absolute Monocytes 0.7, Absolute Eosinophils 0.4, Absolute Basophils 0.1 07/20/20 19:17: POC Glucose 139 H 07/20/20 16:17: POC Glucose 98 07/20/20 12:00: POC Glucose 146 H Microbiology Results 07/19/20 10:10 Nasopharnyx Coronavirus COVID-19 PCR - Final 07/12/20 21:30 Clean Catch Urine [place]ton Count - Final >100,000 CFU/ML. 07/12/20 21:30 Clean Catch Urine - Final Enterococcus Faecalis Assessment/ Plan: Nephrology No acute cardiac or pulmonary compaints. No CP or SOB. Feeling better. No acute events overnight. Vitals, medications, blood work and imaging reviewed in the chart. NAD. MMM. Neck supple. CTA. RRR. Soft Abd. No C/C/E. No rash. AAO. Normal Speech. A/P: Continue the current POC and Medications other than the changes listed. AM Labs PRN. Recommend daily weight. Please see the orders for complete details. CKD IV with proteinuria -DC Ramipril -No NSAIDs Hyperkalemia -DC Ramipril -Give Kayexalate -Low potassium diet Hypocalcemia -Continue Cholecalciferol and Calcitriol HTN with CKD -Continue Coreg. -Start Amlodipine and Doxazosin DM II with CKD -Continue RISS Moderate malnutrition -Recommend protein supplementation Anemia in chronic illness -Continue oral iron supplementation -Continue Retacrit Acute cystitis -Repeat UA and Culture
[2020-07-21] MEDS: LIDOCAINE 4% PATCH TOP SCH (08:37)
[2020-07-21] MEDS: PIOGLITAZONE 15 MG TAB PO SCH (08:38)
[2020-07-21] MEDS: NICOTINE 14 MG/PAT TD SCH (08:38)
[2020-07-21] MEDS: TRAMADOL HCL 50 MG TAB PO PRN (08:39)
[2020-07-21] MEDS: CALCITROL 0.25 MCG CAP PO SCH (08:39)
[2020-07-21] MEDS: ASPIRIN EC 81 MG TAB PO SCH (08:39)
[2020-07-21] MEDS: FE SULF/FA/VIT B COMP & C TAB PO SCH (08:39)
[2020-07-21] MEDS: PARoxetine HCL 10 MG TAB PO SCH (08:40)
[2020-07-21] MEDS: OXYBUTYNIN ER 5 MG TAB PO SCH (08:40)
[2020-07-21] MEDS: carvediloL 6.25 MG TAB PO SCH ×2 (08:41→19:56)
[2020-07-21] MEDS: VITAMIN D 5,000 UNIT CAP PO SCH (08:41)
[2020-07-21] MEDS: CETIRIZINE HCL 5 MG TABLET PO SCH (08:41)
[2020-07-21] MEDS: GABAPENTIN 100 MG CAP PO SCH ×2 (08:42→19:56)
[2020-07-21] MEDS: FERROUS SULFATE 325 MG TAB PO SCH (10:01)
[2020-07-21] MEDS: CRANBERRY FRUIT EXTRACT 200 MG CAP PO SCH ×2 (10:02→19:55)
[2020-07-21] MEDS: DOXAZOSIN 2 MG TAB PO SCH ×2 (10:03→19:56)
[2020-07-21] MEDS: SOD POLYSTYREN SUL 15 GM/60 ML UCUP PO SCH ×2 (10:03→15:46)
[2020-07-21] MEDS: AMLODIPINE 5 MG TAB PO SCH (10:57)
[2020-07-21] MEDS: ACETAMINOPHEN 500 MG TAB PO PRN (15:46)
--- NOTE | 2020-07-21 17:31 | R.PN ---
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 SUBJECTIVE: Pt denied any Shortness of Breath. Pt denied any depression. Patient states that pain is under control. WBC 7.4, Hgb 9.4, glucose 95 - 148, prealbumin 13.7, K+ 5.8. She was treatetd kayexelate. Calcium 7.8 . Therapeutic exercises done with supervision. MMSE done by speech therapy is . She has severe cognitive-linguistic impairments. VITAL SIGNS Temperature: 98.7 F BP: 170/74 Pulse: 60 Resp: 16 MEDICATION ALLERGIES: No Known Drug Allergies (NKDA) ENVIRONMENTAL ALLERGIES: - Substance Allergies None Known - Other Allergies None Known NURSING: - Shower allowing shower - Skin care per protocol PRECAUTIONS: - Posterior Hip Precaution No adduction across midline No external rotation No hip flexion >90 degrees No internal rotation No wheel chair propulsion ACTIVITIES OOB only with supervision THERAPIES: - Dietary and Nutrition Adequate Nutrition. Nutritional Education. Nutritional Supplements. PHYSICAL EXAM - Gen Alert and awake Lying in bed No apparent distress Oriented to: person, time, and place - Skin No skin breakdown. Normacephalic - Eyes No abnormalities - ENMT No abnormalities - Neck No abnormalities No cervical adenopathy - CVS RRR - Chest No abnormalities - Resp Clear to auscultation - Abd + bowel sounds - GI Soft Deferred - No abnormalities - Ext Left hip surgical site has good hemostasis. - MSK 4+/5 weakness in both lower extremity. - Neuro 4/5 strength left lower extremity. - Psych No abnormalities ASSESSMENT: Pt. is a 89 yo Right-handed female of unknown race.On 07/06/2020 she was admitted to [facility] with diagnosis LEFT FEMORAL FRACTURE.Her impairment category is Orthopaedic Disorders 08 - Unilater al Hip Fracture (01.25).Pre-morbidly, Pt. was independent/mod-I in Self-Care, Endurance, Communicatio n, Locomotion, and Safety Awareness; and she had good Sphincter Control, Transfers Control, and Socia l Cognition.Currently, she has deficits of Balance, Transfers Control, Sphincter Control, Self-Care, and Locomotion.Pt. is now referred to [facility] for acute in-patient rehabili tation in order to maximize patient's functional independence in activities of daily living, strength , ROM, and mobility.- Rehab Goal Patient has realistic goal of being discharged at assistance level 7-Ind to reside at Home with Fami ly/Relatives. MDM/PLAN: - Physical Therapy Decreased range of motion - to improve, our physical therapists will perform initial evaluation of p t's status upon admission and devise an individualized program for increasing patient's Range of Ramses on. Gait dysfunction - to improve, our physical therapists will perform initial evaluation of pt's statu s upon admission and devise an individualized program for Gait Training, and Wheel Chair mobility Inability to transfer - to improve, our physical therapists will perform initial evaluation of pt's status upon admission and devise an individualized program for Bed mobility Need for home safety evaluation - to improve, our physical therapists will perform initial evaluatio n of pt's status upon admission and devise an individualized program for Home Evaluation Need in caregiver upon discharge - to improve, our physical therapists will perform initial evaluati on of pt's status upon admission and devise an individualized program for Caregiver Training New precaution - to improve, our physical therapists will perform initial evaluation of pt's status upon admission and devise an individualized program for Patient precaution education Poor balance - to improve, our physical therapists will perform initial evaluation of pt's status up on admission and devise an individualized program for Balance Training Weakness - to improve, our physical therapists will perform initial evaluation of pt's status upon a dmission and devise an individualized program for Aquatic Therapy, Neuromuscular Reeducation, and Str engthening Achieving independence - to improve, our physical therapists will perform initial evaluation of pt's status upon admission and devise an individualized program for Community Reintegration Activities - Occupational Therapy ADL deficits - to improve, our occupation therapists will perform initial evaluation of pt's status upon admission and devise an individualized program for Bathing, Bed mobility, Community Reintegratio n, Cooking, Dressing, Eating, Fine Motor Skills, Grooming, Homemaking, Kitchen Mobility, Laundry, Pat ient Education, Safety Awareness, Splinting - Positioning, Transfers(Toilet, Tub, Shower), and Wheel Chair Management Need for manager critical care - to improve, our occupation therapists will perform initial evaluation of pt's status upon admission and devise an individualized program for Caregiver Training Weakness - to improve, our occupation therapists will perform initial evaluation of pt's status upon admission and devise an individualized program for Aquatic Therapy, Balance, Endurance, UE ROM, and UE strengthening - Other See attached MAR (Medication Administration Record) - Anterior Hip Precaution No abduction No active extension No adduction across midline No external rotation No hip flexion >90 degrees No internal rotation - Diet - Liquid Texture Continue Regular - Tube Feed Continue N/A - Diet Type Continue Regular - Posterior Hip Precaution No adduction across midline No external rotation No hip flexion >90 degrees No internal rotation No wheel chair propulsion - Weight Bearing Precaution WBAT left LE - Skin care per protocol - Diet - Solid Texture Continue Regular - Shower allowing shower FUNCTIONAL STATUS: UPDATED AT WEEKLY TEAM CONFERENCE - Bladder Same accident frequency: 7-Ind - No accidents in the past 7 days - Bowel Same accident frequency: 7-Ind - No accidents in the past 7 days - Walking Same score based on distance walked: 0(N/A) Same score based on distance walked: 1(<=50ft) - Wheelchair Same score based on distance traveled: 0(N/A) FUNCTIONAL STATUS: - Self-Care A. Eating Christian B. Grooming sup C. Bathing sup D. Dressing - Upper Jocelyn E. Dressing - Lower modA F. Toileting sup - Sphincter Control G. Bladder control Jocelyn H. Bowel control Jocelyn - Transfers Control I. Bed/Chair/Wheelchair Jocelyn J. Toilet Jocelyn K. Tub/Shower modA - Locomotion L. Walk/Wheelchair (B) Jocelyn M. Stairs maxA - Communication N. Comprehension (B) Christian O. Expression (B) Christian - Social Cognition P. Social Interaction Christian Q. Problem Solving sup R. Memory Christian - Endurance Fair - Balance Fair - Safety Awareness Fair QI SCORES: - Self-Care A. Eating 03-Partial/moderate assistance B. Oral hygiene 03-Partial/moderate assistance C. Toileting hygiene E. Shower/bathe self 02-Substantial/maximal assistance F. Upper body dressing 03-Partial/moderate assistance G. Lower body dressing 02-Substantial/maximal assistance H. Putting on/taking off footwear 88-Not attempted due to medical condition or safety concerns - Mobility A. Roll left and right 03-Partial/moderate assistance B. Sit to lying 03-Partial/moderate assistance C. Lying to sitting on side of bed 03-Partial/moderate assistance D. Sit to stand 03-Partial/moderate assistance E. Chair/pne-re-zueis transfer 02-Substantial/maximal assistance F. Toilet transfer G. Car transfer 88-Not attempted due to medical condition or safety concerns I. Walk 10 feet 03-Partial/moderate assistance J. Walk 50 feet with two turns 88-Not attempted due to medical condition or safety concerns K. Walk 150 feet 88-Not attempted due to medical condition or safety concerns L. Walking 10 feet on uneven surfaces 88-Not attempted due to medical condition or safety concerns M. 1 step (curb) 88-Not attempted due to medical condition or safety concerns N. 4 steps 88-Not attempted due to medical condition or safety concerns O. 12 steps 88-Not attempted due to medical condition or safety concerns P. Picking up object 88-Not attempted due to medical condition or safety concerns R. Wheel 50 feet with two turns 88-Not attempted due to medical condition or safety concerns S. Wheel 150 feet 88-Not attempted due to medical condition or safety concerns - Bladder and Bowel Bladder continence Bowel continence - Endurance Fair - Balance Fair - Safety Awareness Fair CURRENT [facility]. 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
[2020-07-21] MEDS: DOCUSATE NA/SENNA CONC 1 TAB PO SCH (19:57)
[2020-07-22] MEDS: MELATONIN 3 MG TABLET PO PRN ×2 (00:36→22:23)
[2020-07-22] MEDS: HEPARIN 5000 UNIT/ML 1 ML VIAL SQ SCH ×2 (06:08→18:07)
[2020-07-22] MEDS: JUVEN PACKET PO SCH ×2 (07:22→20:00)
[2020-07-22] MEDS: INSULIN -REGULAR HUMAN 50 UNIT/0.5 ML ML SQ SCH ×4 (07:30→21:00)
[2020-07-22] MEDS: LIDOCAINE 4% PATCH TOP SCH (07:40)
[2020-07-22] MEDS: NICOTINE 14 MG/PAT TD SCH (07:40)
[2020-07-22] MEDS: TRAMADOL HCL 50 MG TAB PO PRN (08:28)
[2020-07-22] MEDS: FE SULF/FA/VIT B COMP & C TAB PO SCH (08:30)
[2020-07-22] MEDS: ASPIRIN EC 81 MG TAB PO SCH (08:30)
[2020-07-22] MEDS: CETIRIZINE HCL 5 MG TABLET PO SCH (08:31)
[2020-07-22] MEDS: PARoxetine HCL 10 MG TAB PO SCH (08:31)
[2020-07-22] MEDS: CALCITROL 0.25 MCG CAP PO SCH (08:31)
[2020-07-22] MEDS: CRANBERRY FRUIT EXTRACT 200 MG CAP PO SCH ×2 (08:32→20:26)
[2020-07-22] MEDS: AMLODIPINE 5 MG TAB PO SCH (08:32)
[2020-07-22] MEDS: PIOGLITAZONE 15 MG TAB PO SCH (08:33)
[2020-07-22] MEDS: OXYBUTYNIN ER 5 MG TAB PO SCH (08:33)
[2020-07-22] MEDS: FERROUS SULFATE 325 MG TAB PO SCH (08:33)
[2020-07-22] MEDS: VITAMIN D 5,000 UNIT CAP PO SCH (08:33)
[2020-07-22] MEDS: GABAPENTIN 100 MG CAP PO SCH ×2 (08:34→20:26)
[2020-07-22] MEDS: DOXAZOSIN 2 MG TAB PO SCH ×2 (08:34→20:26)
[2020-07-22] MEDS: carvediloL 6.25 MG TAB PO SCH ×2 (08:35→20:26)
[2020-07-22 08:49] LABS: Potassium 4.8 mmol/L (3.5-5.1)
--- NOTE | 2020-07-22 09:45 | P.RH.PN ---
Estimated Length of Stay: 14 Expected Discharge Date: 07/26/20 Discharge Disposition Plan: Home Family Support: Yes Residential Goal: Mobility, Transfers, Self Care Vital Signs: Last Vital Signs Temp 97.4 F 07/22/20 08:00 Pulse 61 07/22/20 08:35 Resp 18 07/22/20 08:28 BP 138/43 L 07/22/20 08:35 Pulse Ox 96 07/22/20 08:28 Laboratory: Laboratory Last Values WBC 7.40 K/uL (4.3-10.9) 07/21/20 06:13 RBC 2.92 M/uL (3.86-4.86) L 07/21/20 06:13 Hgb 9.4 g/dL (12.0-15.0) L 07/21/20 06:13 Hct 27.8 % (36.0-45.0) L 07/21/20 06:13 MCV 95.1 fL (80-100) 07/21/20 06:13 MCH 32.3 pg (27.0-35.0) 07/21/20 06:13 MCHC 34.0 g/dL (32.0-36.0) 07/21/20 06:13 RDW 15.6 % (12.1-15.2) H 07/21/20 06:13 Plt Count 251 K/uL (152-406) 07/21/20 06:13 MPV 10.1 fL (7.6-11.3) 07/21/20 06:13 Neutrophils % 62.6 % (41.7-73.7) 07/21/20 06:13 Lymphocytes % 21.9 % (15.3-44.8) 07/21/20 06:13 Monocytes % 8.8 % (3.3-12.3) 07/21/20 06:13 Eosinophils % 5.4 % (0-4.4) H 07/21/20 06:13 Basophils % 1.3 % (0-1.3) 07/21/20 06:13 Absolute Neutrophils 4.6 K/uL (1.8-8.0) 07/21/20 06:13 Absolute Lymphocytes 1.6 K/uL (0.7-4.9) 07/21/20 06:13 Absolute Monocytes 0.7 K/uL (0.1-1.3) 07/21/20 06:13 Absolute Eosinophils 0.4 K/uL (0-0.5) 07/21/20 06:13 Absolute Basophils 0.1 K/uL (0-0.5) 07/21/20 06:13 Sodium 144 mmol/L (136-145) 07/22/20 08:24 Potassium 4.8 mmol/L (3.5-5.1) 07/22/20 08:24 Chloride 115 mmol/L (98-107) H 07/22/20 08:24 Carbon Dioxide 25 mmol/L (21-32) 07/22/20 08:24 BUN 38 mg/dL (7-18) H 07/22/20 08:24 Creatinine 2.29 mg/dL (0.55-1.3) H 07/22/20 08:24 Estimated GFR 20 mL/min (=/>90) L 07/22/20 08:24 Glucose 102 mg/dL (74-106) 07/22/20 08:24 POC Glucose 97 mg/dL (65-120) 07/22/20 08:00 Calcium 8.3 mg/dL (8.5-10.1) L 07/22/20 08:24 Magnesium 2.7 mg/dL (1.8-2.4) H 07/21/20 07:08 Albumin 2.0 g/dL (3.4-5.0) L 07/21/20 07:08 Prealbumin 13.7 mg/dL (20-40) L 07/21/20 07:08 Urine Color Yellow 07/12/20 21:30 Urine Appearance Cloudy 07/12/20 21:30 Urine pH 5.5 (5.0-7.0) 07/12/20 21:30 Ur Specific [place] 1.015 (1.005-1.030) 07/12/20 21:30 Glucose (UA)(Auto) Trace (NEG) 07/12/20 21:30 Urine Ketones Trace (NEG) 07/12/20 21:30 Urine Blood 2+ (NEG) H 07/12/20 21:30 Urine Nitrite Negative (NEG) 07/12/20 21:30 Urine Bilirubin Negative (NEG) 07/12/20 21:30 Urine Urobilinogen 0.2 mg/dL (0.2-1.0) 07/12/20 21:30 Ur Leukocyte Esterase Trace (NEG) H 07/12/20 21:30 Urine RBC <5 /HPF (NONE SEEN) 07/12/20 21:30 Urine WBC 5-10 /HPF (<5) H 07/12/20 21:30 Ur Squamous Epith Cells <5 /HPF (NONE SEEN) 07/12/20 21:30 Ur Urothelial Cells <5 /HPF (NONE SEEN) 07/12/20 21:30 Urine Bacteria 20-50 /HPF (<20) H 07/12/20 21:30 Hyaline Casts 0-5 /LPF (NONE SEEN) 07/12/20 21:30 Coarse Granular Casts 0-5 /LPF (NONE SEEN) 07/12/20 21:30 Urine Culture Reflexed Not needed 07/12/20 21:30 Urine Total Protein 3+ (NEG) H 07/12/20 21:30 SARS-CoV-2 RNA (RT-PCR) Negative (NEGATIVE) 07/12/20 22:00 ABO/Rh B POSITIVE 07/13/20 Unknown ABO/Rh Cancelled 07/13/20 Unknown Solid Phase Ab Screen Cancelled 07/13/20 Unknown Crossmatch See Detail 07/13/20 06:57 Weight: 127 lb 12.8 oz Wound Present: Yes Closed Surgical Incision Present: No Negative Pressure Wound Therapy Present: No Physician Update: Labs reviewed and are stable. She is making good progress but is limited by poor cognitive functioning. She has much family support. She will be discharge in the AM. She has home health in place and will check on equipment. Functional Improvement: pt continues to participate well with physical therapy. pt does present some difficulties for the other disciplines. pt is able to perform functional mobility with SBA <-> CG. pt lacks safety awareness and is often impulsive. pt does not recall hip precautions and struggles with carry over regarding proper technique and hand placement during transfers and functional activity from one attempt to the next. 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 Please see the Rehabilitation Signature page for all necessary signatures.
[2020-07-22] MEDS: ACETAMINOPHEN 500 MG TAB PO PRN ×2 (12:02→18:43)
[2020-07-22] MEDS: EPOETIN ALFA-EPBX 4,000 UNIT/ML VIAL SQ SCH (16:20)
[2020-07-22] MEDS: DOCUSATE NA/SENNA CONC 1 TAB PO SCH (20:27)
--- NOTE | 2020-07-22 20:42 | P.PN ---
Date of Service: 07/22/20 Vital Signs Temp Pulse Resp BP Pulse Ox 97.6 F 60 18 161/60 H 99 07/22/20 20:00 07/22/20 20:26 07/22/20 20:00 07/22/20 20:26 07/22/20 20:00 Medications Acetaminophen (Acetaminophen 500 Mg Tab) 500 mg PO Q4H PRN PRN Reason: Pain scale 2-4 (Mild) Stop: 08/12/20 12:52 Last Admin: 07/22/20 18:43 Dose: 500 mg Documented by: Amlodipine Besylate (Amlodipine 5 Mg Tab) 5 mg PO DAILY [facility] Stop: 08/20/20 09:01 Last Admin: 07/22/20 08:32 Dose: 5 mg Documented by: Aspirin (Aspirin Ec 81 Mg Tab) 81 mg PO DAILY [facility] Stop: 08/12/20 08:01 Last Admin: 07/22/20 08:30 Dose: 81 mg Documented by: Bisacodyl (Bisacodyl 10 Mg Rectal Supp) 10 mg RC DAILY PRN PRN Reason: CONSTIPATION Stop: 08/11/20 23:55 Calcitriol (Calcitrol 0.25 Mcg Cap) 0.5 mcg PO DAILY [facility] Stop: 08/18/20 08:01 Last Admin: 07/22/20 08:31 Dose: 0.5 mcg Documented by: Carvedilol (Carvedilol 6.25 Mg Tab) 6.25 mg PO BID [facility] Stop: 08/12/20 20:01 Last Admin: 07/22/20 20:26 Dose: 6.25 mg Documented by: Cetirizine HCl (Cetirizine Hcl 5 Mg Tablet) 10 mg PO DAILY KASIE Stop: 08/12/20 08:01 Last Admin: 07/22/20 08:31 Dose: 10 mg Documented by: Cholecalciferol (Vitamin D 5,000 Unit Cap) 5,000 unit PO DAILY KASIE Stop: 08/18/20 08:01 Last Admin: 07/22/20 08:33 Dose: 5,000 unit Documented by: Clonidine HCl (Clonidine Hcl 0.1 Mg Tab) 0.1 mg PO Q6H PRN PRN Reason: high bp Stop: 08/14/20 16:01 Last Admin: 07/18/20 12:23 Dose: 0.1 mg Documented by: Dextrose (D50w 25 Gm/50 Ml Vial) 12.5 gm IV PRN PRN; Protocol PRN Reason: HYPOGLYCEMIA Stop: 08/19/20 14:54 Doxazosin Mesylate (Doxazosin 2 Mg Tab) 2 mg PO BID KASIE Stop: 08/20/20 08:31 Last Admin: 07/22/20 20:26 Dose: 2 mg Documented by: Ferrous Sulfate (Ferrous Sulfate 325 Mg Tab) 325 mg PO DAILY KASIE Stop: 08/12/20 08:01 Last Admin: 07/22/20 08:33 Dose: 325 mg Documented by: Gabapentin (Gabapentin 100 Mg Cap) 100 mg PO BID KASIE Stop: 08/12/20 20:01 Last Admin: 07/22/20 20:26 Dose: 100 mg Documented by: Glucagon (Glucagon 1 Mg/Vial) 1 mg IM 1X PRN; Protocol PRN Reason: HYPOGLYCEMIA Stop: 08/12/20 05:59 Heparin Sodium (Porcine) (Heparin 5000 Unit/Ml 1 Ml Vial) 5,000 unit SQ Q12H KASIE Stop: 08/12/20 08:01 Last Admin: 07/22/20 18:07 Dose: 5,000 unit Documented by: Insulin Human Regular (Insulin -Regular Human 50 Unit/0.5 Ml Ml) 0 unit SQ ACHS [facility]; Protocol Stop: 08/12/20 07:31 Last Admin: 07/22/20 16:30 Dose: Not Given Documented by: L-Arginine/L-Glutamine/HMB (Ricardo Packet) 1 pkt PO BID KASIE Stop: 08/12/20 20:01 Last Admin: 07/22/20 20:00 Dose: Not Given Documented by: Lidocaine (Lidocaine 4% Patch) 1 patch TOP DAILY KASIE Stop: 08/12/20 08:01 Last Admin: 07/22/20 07:40 Dose: 1 patch Documented by: Melatonin (Melatonin 3 Mg Tablet) 3 mg PO BEDTIME PRN PRN PRN Reason: INSOMNIA Stop: 08/12/20 15:21 Last Admin: 07/22/20 00:36 Dose: 3 mg Documented by: Multivitamins/Iron (Fe Sulf/Fa/Vit B Comp & C Tab) 1 tab PO DAILY WITH BREAKFAST [facility] Stop: 08/12/20 08:01 Last Admin: 07/22/20 08:30 Dose: 1 tab Documented by: Nicotine (Nicotine 14 Mg/Pat) 14 mg TD DAILY [facility] Stop: 08/13/20 08:01 Last Admin: 07/22/20 07:40 Dose: 14 mg Documented by: Oxybutynin Chloride (Oxybutynin Er 5 Mg Tab) 5 mg PO DAILY KASIE Stop: 08/12/20 08:01 Last Admin: 07/22/20 08:33 Dose: 5 mg Documented by: Paroxetine HCl (Paroxetine Hcl 10 Mg Tab) 20 mg PO DAILY KASIE Stop: 08/12/20 08:01 Last Admin: 07/22/20 08:31 Dose: 20 mg Documented by: Pioglitazone HCl (Pioglitazone 15 Mg Tab) 15 mg PO DAILY WITH BREAKFAST KASIE Stop: 08/12/20 08:01 Last Admin: 07/22/20 08:33 Dose: 15 mg Documented by: Senna/Docusate Sodium (Docusate Na/Senna Conc 1 Tab) 1 tab PO BEDTIME KASIE Stop: 08/12/20 21:01 Last Admin: 07/22/20 20:27 Dose: Not Given Documented by: Tramadol HCl (Tramadol Hcl 50 Mg Tab) 50 mg PO Q6H PRN PRN Reason: Pain scale 5-7 (Moderate) Stop: 08/13/20 11:06 Last Admin: 07/22/20 08:28 Dose: 50 mg Documented by: Lab Results (last 24 hrs) 07/22/20 16:32: POC Glucose 194 H 07/22/20 11:59: POC Glucose 143 H 07/22/20 08:24: Sodium 144, Potassium 4.8, Chloride 115 H, Carbon Dioxide 25, BUN 38 H, Creatinine 2.29 H, Estimated GFR 20 L, Glucose 102, Calcium 8.3 L 07/22/20 08:00: POC Glucose 97 Microbiology Results 07/21/20 15:00 Stool Occult Blood - Final 07/19/20 10:10 Nasopharnyx Coronavirus COVID-19 PCR - Final 07/12/20 21:30 Clean Catch Urine [place] Count - Final >100,000 CFU/ML. 07/12/20 21:30 Clean Catch Urine - Final Enterococcus Faecalis Assessment/ Plan: Nephrology No acute cardiac or pulmonary compaints. No CP or SOB. Doing well. No acute events overnight. Vitals, medications, blood work and imaging reviewed in the chart. NAD. MMM. Neck supple. CTA. RRR. Soft Abd. No C/C/E. No rash. AAO. Normal Speech. A/P: Continue the current POC and Medications other than the changes listed. AM Labs PRN. Recommend daily weight. Please see the orders for complete details. CKD IV with proteinuria -No NSAIDs Hyperkalemia -Low potassium diet Hypocalcemia -Continue Cholecalciferol and Calcitriol HTN with CKD -Continue Coreg and Doxazosin -Increase Amlodipine DM II with CKD -Continue RISS Moderate malnutrition -Recommend protein supplementation Anemia in chronic illness -Continue oral iron supplementation -Continue Retacrit Acute cystitis -Repeat UA and Culture
[2020-07-23] MEDS: HEPARIN 5000 UNIT/ML 1 ML VIAL SQ SCH ×2 (06:11→15:47)
[2020-07-23] MEDS: NICOTINE 14 MG/PAT TD SCH (06:57)
[2020-07-23] MEDS: LIDOCAINE 4% PATCH TOP SCH (06:58)
[2020-07-23 07:10] VITALS: BP 134/57; TEMP 97.4
[2020-07-23] MEDS: INSULIN -REGULAR HUMAN 50 UNIT/0.5 ML ML SQ SCH ×2 (07:10→11:30)
[2020-07-23] MEDS: JUVEN PACKET PO SCH (07:15)
[2020-07-23] MEDS ORDERED: AMLODIPINE 5 MG TAB PO SCH (08:00)
[2020-07-23] MEDS: TRAMADOL HCL 50 MG TAB PO PRN (08:17)
[2020-07-23] MEDS: ASPIRIN EC 81 MG TAB PO SCH (08:18)
[2020-07-23] MEDS: CETIRIZINE HCL 5 MG TABLET PO SCH (08:18)
[2020-07-23] MEDS: CRANBERRY FRUIT EXTRACT 200 MG CAP PO SCH (08:19)
[2020-07-23] MEDS: FE SULF/FA/VIT B COMP & C TAB PO SCH (08:19)
[2020-07-23] MEDS: carvediloL 6.25 MG TAB PO SCH (08:19)
[2020-07-23] MEDS: VITAMIN D 5,000 UNIT CAP PO SCH (08:20)
[2020-07-23] MEDS: DOXAZOSIN 2 MG TAB PO SCH (08:20)
[2020-07-23] MEDS: PIOGLITAZONE 15 MG TAB PO SCH (08:20)
[2020-07-23] MEDS: PARoxetine HCL 10 MG TAB PO SCH (08:20)
[2020-07-23] MEDS: GABAPENTIN 100 MG CAP PO SCH (08:20)
[2020-07-23] MEDS: CALCITROL 0.25 MCG CAP PO SCH (08:20)
[2020-07-23] MEDS: FERROUS SULFATE 325 MG TAB PO SCH (08:20)
[2020-07-23] MEDS: OXYBUTYNIN ER 5 MG TAB PO SCH (08:22)
[2020-07-23 09:42] LABS: Urine Appearance CLOUDY; Urine Bilirubin NEGATIVE (NEG); Urine Blood NEGATIVE (NEG); Urine Color YELLOW; Urine Glucose NEGATIVE (NEG); Urine Protein 3+ (NEG); Urine Urobilinogen 0.2 mg/dL (0.2-1.0); Urine pH 5.5 (5.0-7.0)
[2020-07-23 10:49] LABS: Urine Bacteria <20 /HPF (<20); Urine RBC NONE SEEN /HPF (NONE SEEN)
[2020-07-23 10:50] LABS: Urine Yeast PRESENT (NONE SEEN)
--- NOTE | 2020-07-23 19:25 | PN ---
Date of Progress Note: 07/23/2020 Subjective: The patient was seen and examined at bedside. She is doing okay. Laboratory Data: Reviewed in detail. Current Medications: Reviewed. Objective: General: She appears in no acute distress. HEENT: Atraumatic head. Lungs: Clear to auscultation. Abdomen: Soft and nontender. Extremities: No evidence of edema. Impression: 1.Acute kidney injury on chronic kidney disease stage 4 secondary to recent hip fracture, improving. 2.Left hip fracture, status post arthroplasty. 3.Anemia secondary to chronic kidney disease, improving with Epogen. She will need close outpatient followup. 4.Possible urinary tract infection. UA repeated and negative. 5.Hypertension. The patient is currently on amlodipine 10 mg a day. We will follow up. Plan: The patient is doing okay at this time. Continue all medications and plan of care. She is ok ay to be discharged from Nephrology standpoint with close outpatient followup. MARCIAL/JOSE RAFAEL Voice ID: [id number] Report ID: [id number]
--- NOTE | 2020-08-19 18:14 | R.DS ---
DISCHARGE SUMMARY FACILITY [facility] MR# [id number] NAME SALLIE FERRER AD[address]ESS [address] [place] [address] PHONE DATE OF 1930 AGE 89 SSN# [id number] GENDER Female DEXTERITY Right-handed MARITAL STATUS Single (Never ) RACE Unknown race ENCOUNTER PHYSICIAN Dr. Shaun Johnson M.D. REFERRING DOCTOR JIMENA VIGIL MD REFERRING FACILITY [facility] DISCHARGE DIAGNOSIS: - Orthopaedic Disorders 08 - Unilateral Hip Fracture (08.11) LEFT FEMORAL FRACTURE. 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 NURSING: - Shower allowing shower - Skin care per protocol PRECAUTIONS: - Posterior Hip Precaution No adduction across midline No external rotation No hip flexion >90 degrees No internal rotation No wheel chair propulsion ACTIVITIES OOB only with supervision THERAPIES: - Dietary and Nutrition Adequate Nutrition Nutritional Education Nutritional Supplements HISTORY OF PRESENT ILLNESS: Pt. is a 89 yo Right-handed female of unknown race.On 07/06/2020 she was admitted to [facility] with diagnosis LEFT FEMORAL FRACTURE.Her impairment category is Orthopaedic Disorders 08 - Unilater al Hip Fracture (08.11).Pre-morbidly, Pt. was independent/mod-I in Self-Care, Endurance, Communicatio n, Locomotion, and Safety Awareness; and she had good Sphincter Control, Transfers Control, and Socia l Cognition.Currently, she has deficits of Balance, Transfers Control, Sphincter Control, Self-Care, and Locomotion.Pt. is now referred to [facility] for acute in-patient rehabili tation in order to maximize patient's functional independence in activities of daily living, strength , ROM, and mobility.- Rehab Goal Patient has realistic goal of being discharged at assistance level 7-Ind to reside at Home with Fami ly/Relatives. Sallie Ferrer is a 89 -year- old female that lives independently at home. She lives in a single story home with family help when needed. She has a history of active smoking with medical h/o dementia, DM2, CAD s/p PCI x2 ( 10 yers ago). She admitted with a left femur fracture. She had arthroplasty 07/07/20, hospital course c/b ANKITA and delirium likely 2/2 UTI. Shes working well with PT and has made a great impovedment. The patient would most definitely benefit from acute inpatient rehab and has become severely debilitated and unable to live at her prior level of activity at home getting her stronger to be back living at home independently is our goal. It is reasonable and necessary for the patient to come to acute inpatient rehab for approximately 7-10 days in order to return to her prior level of care. She is now being transferred to [facility] Inpatient rehabilitation and is medically stable with relatively stable labs. She is now medically stable but in need of 24 hour nursing, doctor supervision and oversight while receiving active and ongoing intensive (PT, OT therapy a day/15 hours per week and receive care with intensive interdisciplinary approach. COVID-19 screening performed; spoke with patient via phone. Patient denies new onset of fever, cough, difficulty breathing, sore throat, body aches and non-allergy nasal congestion in the past 24 hours. Patient denies travel outside of [place] in the past 14 days. Patient denies any contact with someone who has a confirmed diagnosis of or is under investigation for COVID-19 in the past 14 days. Patient has been tested negative for COVID- 19.HOSPITAL COURSE: ANTERIOR HIP PRECAUTION: On 07/13/2020 the following precautions were added for the patient: Anterior Hip Precaution - No abd uction, Anterior Hip Precaution - No active extension, Anterior Hip Precaution - No adduction acros s midline, Anterior Hip Precaution - No external rotation, Anterior Hip Precaution - No hip flexion >90 degrees, and Anterior Hip Precaution - No internal rotation. On 07/14/2020 the following precautions were removed for the patient: Anterior Hip Precaution - No a bduction, Anterior Hip Precaution - No active extension, Anterior Hip Precaution - No adduction acr oss midline, Anterior Hip Precaution - No external rotation, Anterior Hip Precaution - No hip flexi on >90 degrees, and Anterior Hip Precaution - No internal rotation. The following precautions were added for the patient: Anterior Hip Precaution - No abduction, Anterio r Hip Precaution - No active extension, Anterior Hip Precaution - No adduction across midline, Anteri or Hip Precaution - No external rotation, Anterior Hip Precaution - No hip flexion >90 degrees, and A nterior Hip Precaution - No internal rotation. On 07/18/2020 the following precautions were removed for the patient: Anterior Hip Precaution - No ab duction, Anterior Hip Precaution - No active extension, Anterior Hip Precaution - No adduction across midline, Anterior Hip Precaution - No external rotation, Anterior Hip Precaution - No hip flexion >9 0 degrees, and Anterior Hip Precaution - No internal rotation. The following precautions were added for the patient: Anterior Hip Precaution - No abduction, Anteri or Hip Precaution - No active extension, Anterior Hip Precaution - No adduction across midline, Ant erior Hip Precaution - No external rotation, Anterior Hip Precaution - No hip flexion >90 degrees, and Anterior Hip Precaution - No internal rotation. The following precautions were removed for the patient: Anterior Hip Precaution - No abduction, Ante rior Hip Precaution - No active extension, Anterior Hip Precaution - No adduction across midline, A nterior Hip Precaution - No external rotation, Anterior Hip Precaution - No hip flexion >90 degrees , and Anterior Hip Precaution - No internal rotation. On 07/11/2020 the following precautions were added for the patient: Posterior Hip Precaution - No int ernal rotation, Posterior Hip Precaution - No adduction across midline, Posterior Hip Precaution - No hip flexion >90 degrees, Posterior Hip Precaution - No wheel chair propulsion, and Posterior Hip Pre caution - No external rotation. On 07/14/2020 the following precautions were added for the patient: Posterior Hip Precaution - No ad duction across midline, Posterior Hip Precaution - No external rotation, Posterior Hip Precaution - No hip flexion >90 degrees, Posterior Hip Precaution - No internal rotation, and Posterior Hip Prec aution - No wheel chair propulsion. The following precautions were removed for the patient: Posterior Hip Precaution - No adduction acros s midline, Posterior Hip Precaution - No external rotation, Posterior Hip Precaution - No hip flexion >90 degrees, Posterior Hip Precaution - No internal rotation, Posterior Hip Precaution - No wheel ch air propulsion, Posterior Hip Precaution - No adduction across midline, Posterior Hip Precaution - No external rotation, Posterior Hip Precaution - No hip flexion >90 degrees, Posterior Hip Precautio n - No internal rotation, and Posterior Hip Precaution - No wheel chair propulsion. On 07/13/2020 the following precautions were added for the patient: Weight Bearing Precaution - WBAT left LE. On 07/14/2020 the following precautions were removed for the patient: Weight Bearing Precaution - WB AT left LE. The following precautions were added for the patient: Weight Bearing Precaution - WBAT left LE. On 07/18/2020 the following precautions were removed for the patient: Weight Bearing Precaution - WBA T left LE. The following precautions were added for the patient: Weight Bearing Precaution - WBAT left LE. DIET - LIQUID TEXTURE: On 07/11/2020 Pt was upgraded to Regular Diet - Liquid Texture. DIET - SOLID TEXTURE: On 07/11/2020 Pt was upgraded to Regular Diet - Solid Texture. DIET TYPE: On 07/11/2020 Pt was upgraded to Regular Diet Type. POSTERIOR HIP PRECAUTION: TUBE FEED: On 07/11/2020 Pt was changed to N/A Tube Feed. WEIGHT BEARING PRECAUTION: DISCHARGE PHYSICAL EXAM - Gen Alert and awake Lying in bed No apparent distress Oriented to: person, time, and place - Skin No skin breakdown. Normacephalic - Eyes No abnormalities - ENMT No abnormalities - Neck No abnormalities No cervical adenopathy - CVS RRR - Chest No abnormalities - Resp Clear to auscultation - Abd + bowel sounds - GI Soft Deferred - No abnormalities - Ext Left hip surgical site has good hemostasis. - MSK 4+/5 weakness in both lower extremity. - Neuro 4/5 strength left lower extremity. - Psych No abnormalities FUNCTIONAL STATUS: - Self-Care A. Eating 6-Christian B. Grooming 6-Christian C. Bathing 6-Christian D. Dressing - Upper 6-Christian E. Dressing - Lower 6-Christian F. Toileting 6-Christian - Sphincter Control G. Bladder control 6-Christian H. Bowel control 6-Christian - Transfers Control I. Bed/Chair/Wheelchair 6-Christian J. Toilet 6-Christian K. Tub/Shower 5-sup - Locomotion L. Walk/Wheelchair (B) 6-Christian M. Stairs 5-sup - Communication N. Comprehension (B) 6-Christian O. Expression (B) 6-Christian - Social Cognition P. Social Interaction 6-Christian Q. Problem Solving 5-sup R. Memory 6-Christian - Endurance Good - Balance Good - Safety Awareness Good QI SCORES: - Self-Care A. Eating 03-Partial/moderate assistance B. Oral hygiene 03-Partial/moderate assistance C. Toileting hygiene E. Shower/bathe self 02-Substantial/maximal assistance F. Upper body dressing 03-Partial/moderate assistance G. Lower body dressing 02-Substantial/maximal assistance H. Putting on/taking off footwear 88-Not attempted due to medical condition or safety concerns - Mobility A. Roll left and right 03-Partial/moderate assistance B. Sit to lying 03-Partial/moderate assistance C. Lying to sitting on side of bed 03-Partial/moderate assistance D. Sit to stand 03-Partial/moderate assistance E. Chair/[id number] transfer 02-Substantial/maximal assistance F. Toilet transfer G. Car transfer 88-Not attempted due to medical condition or safety concerns I. Walk 10 feet 03-Partial/moderate assistance J. Walk 50 feet with two turns 88-Not attempted due to medical condition or safety concerns K. Walk 150 feet 88-Not attempted due to medical condition or safety concerns L. Walking 10 feet on uneven surfaces 88-Not attempted due to medical condition or safety concerns M. 1 step (curb) 88-Not attempted due to medical condition or safety concerns N. 4 steps 88-Not attempted due to medical condition or safety concerns O. 12 steps 88-Not attempted due to medical condition or safety concerns P. Picking up object 88-Not attempted due to medical condition or safety concerns R. Wheel 50 feet with two turns 88-Not attempted due to medical condition or safety concerns S. Wheel 150 feet 88-Not attempted due to medical condition or safety concerns - Bladder and Bowel Bladder continence Bowel continence - Endurance Fair - Balance Fair - Safety Awareness Fair DISCHARGE INSTRUCTIONS: - N/A Heparin 5000 IU subcutaneous bid. DISCHARGE PLAN, FOLLOW UP CARE PROVISIONS: - Estimated Length of Stay (days) 14. - Consensus on plan Discharge plan has been discussed with primary caregiver. Patient/Family is in agreement with the gavino n. Primary caregiver is in agreement with the plan. - Patient/Family Goals Return home independently. - Planned Living Setting Upon Discharge Home, to live with Family/Relatives. Transitional Living. 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
== END 2020-07-23 16:00 | disposition home health service (06) | DRG 560 ==
LOC: 5TH 07-12 20:06
PROVIDERS: ADMIT Psychiatry & Neurology Neurology with Special Qualifications in Child Neurology; ATTEND Psychiatry & Neurology Neurology with Special Qualifications in Child Neurology
PROC: 30233N1 Transfusion of Nonautologous Red Blood Cells into Peripheral Vein, Percutaneous Approach (ICD-10-PCS; principal; 2020-07-15)
DX: S72.92XD Unspecified fracture of left femur, subsequent encounter for closed fracture with routine healing (principal); N17.9 Acute kidney failure, unspecified; N18.4 Chronic kidney disease, stage 4 (severe); E44.0 Moderate protein-calorie malnutrition; N30.00 Acute cystitis without hematuria; I12.9 Hypertensive chronic kidney disease with stage 1 through stage 4 chronic kidney disease, or unspecified chronic kidney disease; E11.22 Type 2 diabetes mellitus with diabetic chronic kidney disease; D63.1 Anemia in chronic kidney disease; E87.5 Hyperkalemia; E83.51 Hypocalcemia; I25.10 Atherosclerotic heart disease of native coronary artery without angina pectoris; F03.90 Unspecified dementia, unspecified severity, without behavioral disturbance, psychotic disturbance, mood disturbance, and anxiety; Z68.24 Body mass index [BMI] 24.0-24.9, adult; Z20.822 Contact with and (suspected) exposure to COVID-19
CPT/HCPCS: 36415; 70450; 71045; 80048; 81001; 82040; 82274; 82947; 83735; 84134; 85014; 85018; 85025; 86850; 86900; 86901; 87077; 87086; 87088; 87186; 92523; 97110; 97116; 97127; 97161; 97530; 97542; J1644; J7050; P9016; Q5105; Q5106; U0002; U0003